=== PATIENT | male | born 1960 | race African-American/Black ===

== ENCOUNTER 2018-05-05 12:00 | Inpatient (IN) | payer OTHER ==
[2018-05-05 12:20] VITALS: BMI 27.3
--- NOTE | 2018-05-05 14:13 | HP ---
COWS - Scale Resting Pulse: 1= [place] 81-100 Sweatin= Chills/Flushing Restless Observation: 3= Extraneous Movement Pupil Size: 1= Pupils >than Normal Bone or Joint Aches: 2= Severe Diffuse Aches Runny Nose/ Eye Tearin= Runny Nose/Eyes GI Upset > 30mins: 2= Nausea/Diarrhea Tremor Observation: 2= Slight Tremor Visible Yawning Observation: 1= 1-2x During Session Anxiety or Irritability: 2=Irritable/Anxious Goose Flesh Skin: 0=Smooth Skin COWS Score: 17 CIWA Score - CIWA Score Nausea/Vomitin Muscle Tremors: 2 Anxiety: 2 Agitation: 2 Paroxysmal Sweats: 1-Minimal Palms Moist Orientation: 0-Oriented Tacttile Disturbances: 1-Very Mild Itch/Numbness Auditory Disturbances: 1-Very Mild Visual Disturbances: 1-Very Mild Sensitivity Headache: 2-Mild CIWA-Ar Total Score: 14 Admission ROS BHS - HPI Chief Complaint: i need help to stop using heroin,alcohol and cocaine Allergies/Adverse Reactions: Allergies Allergy/AdvReac Type Severity Reaction Status Date / Time No Known Drug Allergies Allergy Verified 05/05/18 14:08 History of Present Illness: this 57 years old male with heroin,alcohol,cocaine dependence seeking detox, withdrawal symptom,last detox [facility] 02/04/16 to 02/06/16 not completed history of hepatitis c no treatment black out weight loss manic depressive disorder multiple admissions in detox,last 02/04/16 to 02/06/16 not completed,keep relapsing - Ebola screening Have you traveled outside of the country in the last 21 days: No Have you had contact with anyone from an Ebola affected area: No Have you been sick,other than usual withdrawal symptoms: No Do you have a fever: No - Review of Systems Constitutional: Chills, Loss of Appetite, Malaise, Night Sweats, Changes in sleep, Weakness, Unintentional Wgt. Loss EENT: reports: Tearing, Nose Congestion Respiratory: reports: No Symptoms reported GI: reports: Diarrhea, Nausea, Vomiting, Abdominal cramping : reports: No Symptoms Reported Musculoskeletal: reports: Back Pain, Joint Pain, Muscle Pain, Joint Stiffness Integumentary: reports: Dryness Neuro: reports: No Symptoms reported, Headache, Tremors Endocrine: reports: No Symptoms Reported Hematology: reports: No Symptoms Reported Psychiatric: reports: No Sypmtoms Reported, Judgement Intact, Mood/Affect Appropiate, Orientated x3, Depressed (manic depressive disorder) Patient History - Patient Medical History Hx Anemia: No Hx Asthma: No Hx Chronic Obstructive Pulmonary Disease (COPD): No Hx Cancer: No Hx Cardiac Disorders: No Hx Congestive Heart Failure: No Hx Hypertension: No Hx Hypercholesterolemia: No Hx Pacemaker: No HX Cerebrovascular Accident: No Hx Seizures: No Hx Dementia: No Hx Diabetes: No Hx Gastrointestinal Disorders: No Hx Liver Disease: No Hx Genitourinary Disorders: No Hx Sexually Transmitted Disorders: No Hx Renal Disease (ESRD): No Hx Thyroid Disease: No Hx Human Immunodeficiency Virus (HIV): No (NEGATIVE HX last 2014) Hx Hepatitis C: Yes ("long time" no treatment) Hx Depression: Yes (no med) Hx Suicide Attempt: No Hx Bipolar Disorder: No Hx Schizophrenia: Yes (manic depressive disorder) - Patient Surgical History Past Surgical History: No Hx Neurologic Surgery: No Hx Cataract Extraction: No Hx Cardiac Surgery: No Hx Lung Surgery: No Hx Breast Surgery: No Hx Breast Biopsy: No Hx Abdominal Surgery: No Hx Appendectomy: No Hx Cholecystectomy: No Hx Genitourinary Surgery: No Hx Section: No Hx Orthopedic Surgery: No Anesthesia Reaction: No - PPD History Previous Implant?: Yes Documented Results: Negative w/o proof Implanted On Prior R Admission?: Yes Date: 05/05/15 Results: 0 mm PPD to be Administered?: Yes - Smoking Cessation Smoking history: Current every day smoker Have you smoked in the past 12 months: Yes Aproximately how many cigarettes per day: 5 Hx Chewing Tobacco Use: No Initiated information on smoking cessation: Yes 'Breaking Loose' booklet given: 05/05/18 - Substance & Tx. History Hx Alcohol Use: Yes Hx Substance Use: Yes Substance Use Type: Alcohol, Cocaine, Heroin Hx Substance Use Treatment: Yes (02/04/16 to 02/06/16 not completed) - Substances Abused Alcohol Route: Oral Frequency: Daily Amount used: 2 40 oz beers/ 2 qt s Age of first use: 11 Date of Last Use: 05/04/18 Heroin Route: Inhalation Frequency: Daily Amount used: 4 bags Age of first use: 21 Date of Last Use: 05/04/18 Cocaine Route: Smoking Frequency: Daily Amount used: $100-150 Age of first use: 21 Date of Last Use: 05/04/18 Family Disease History - Family Disease History Family Disease History: Diabetes: Mother (), Other: Mother Admission Physical Exam [facility] - Vital Signs Vital Signs: Vital Signs - 24 hr 05/05/18 12:11 Temperature 96.4 F L Pulse Rate 85 Respiratory 20 Rate Blood Pressure 150/94 - Physical General Appearance: Yes: Moderate Distress, Tremorous, Irritable, Sweating, Anxious HEENTM: Yes: Normal ENT Inspection, CHERELLE, Pharynx Normal Respiratory: Yes: Lungs Clear, Normal Breath Sounds, No Respiratory Distress Neck: Yes: Within Normal Limits Breast: Yes: Within Normal Limits Cardiology: Yes: Within Normal Limits, Regular Rhythm, Regular Rate, S1, S2 Abdominal: Yes: Within Normal Limits, Normal Bowel Sounds, Non Tender, Soft Genitourinary: Yes: Within Normal Limits Back: Yes: Muscle Spasm Musculoskeletal: Yes: full range of Motion, Back pain, Joint Stiffness, Muscle Pain Extremities: Yes: Tremors Neurological: Yes: Within Normal Limits, saddle cutter II-XII NML intact, Fully Oriented, Alert, Motor Strength 5/5 Integumentary: Yes: Dry Lymphatic: Yes: Within Normal Limits - Diagnostic (1) Opioid dependence with withdrawal Current Visit: No Status: Acute (2) Alcohol dependence with uncomplicated withdrawal Current Visit: No Status: Acute (3) Cocaine dependence Current Visit: No Status: Acute (4) Nicotine dependence Current Visit: No Status: Acute Qualifiers: Nicotine product type: cigarettes Substance use status: uncomplicated Qualified Code(s): F17.210 - Nicotine dependence, cigarettes, uncomplicated (5) Hepatitis C Current Visit: No Status: Chronic Qualifiers: Viral hepatitis chronicity: chronic Hepatic coma status: without hepatic coma Qualified Code(s): B18.2 - Chronic viral hepatitis C Cleared for Admission [facility] - Detox or Rehab [facility] Level of Care: Medically Managed Detox Regimen/Protocol: Methadone/Librium S Breath Alcohol Content Breath Alcohol Content: 0 Urine Drug Screen - Results Drug Screen Negative: No Urine Drug Screen Results: LANEY-Cocaine, OPI-Opiates
[2018-05-05] MEDS ORDERED: MAGNESIUM HYDROX 2400MG/30ML ORAL SUSPENSION 30 ML CUP PO PRN (14:41)
[2018-05-05] MEDS ORDERED: LOPERAMIDE HCL 2 MG CAPSULE PO PRN (14:41)
[2018-05-05] MEDS ORDERED: MAGNESIUM CITRATE 300 ML BOTTLE PO PRN (14:41)
[2018-05-05] MEDS ORDERED: guaiFENesin/D-METHORPHAN HB 10 ML UNIT-DOSE CUPS PO PRN (14:41)
[2018-05-05] MEDS ORDERED: P-EPHED 60MG/TRIPROLIDI 2.5MG TABLET PO PRN (14:41)
[2018-05-05] MEDS ORDERED: IBUPROFEN 400 MG TABLET (FP) PO PRN (14:41)
[2018-05-05] MEDS ORDERED: hydrOXYzine PAMOATE 50 MG CAPSULE (FP) PO PRN (14:41)
[2018-05-05] MEDS ORDERED: ACETAMINOPHEN 325 MG TABLET (FP) PO PRN (14:41)
[2018-05-05] MEDS ORDERED: MENTHOL/PHENOL 1 EACH UD MM PRN (14:41)
[2018-05-05] MEDS ORDERED: chlordiazePOXIDE HCL 25 MG CAPSULE PO PRN (14:41)
[2018-05-05] MEDS ORDERED: MAG HYDROX/AL HYDROX/SIMETH 30 ML UNIT-DOSE CUP PO PRN (14:41)
[2018-05-05] MEDS ORDERED: METHADONE HCL 10 MG TABLET (FOR DETOX USE ONLY) PO ONE ×2 (14:50→23:00)
[2018-05-05] MEDS ORDERED: cloNIDine HCL 0.1 MG TABLET PO ONE (16:45)
[2018-05-05 17:20] LABS: URINE APPEARANCE CLEAR; URINE BILIRUBIN NEGATIVE (<2.0 mg/dL); URINE COLOR LTYELLOW; URINE GLUCOSE (UA) NEGATIVE (NEGATIVE); URINE KETONE NEGATIVE (NEGATIVE); URINE LEUK ESTERASE NEGATIVE (NEGATIVE); URINE NITRITE NEGATIVE (NEGATIVE); URINE PROTEIN NEGATIVE (NEGATIVE); URINE UROBILINOGEN NEGATIVE mg/dL (0.2-1.0)
[2018-05-05] MEDS: chlordiazePOXIDE HCL 25 MG CAPSULE PO SCH ×2 (17:20→22:11)
[2018-05-05] MEDS ORDERED: MELATONIN 5 MG TABLETS PO PRN (22:00)
[2018-05-05] MEDS: THIAMINE HCL 100 MG TABLET (FP) PO SCH (22:11)
[2018-05-06] MEDS: chlordiazePOXIDE HCL 25 MG CAPSULE PO SCH ×4 (05:26→22:20)
--- NOTE | 2018-05-06 07:40 | CONSULT ---
[facility] Psychiatric Consult - Data Date of interview: 05/06/18 Admission source: [facility] Identifying data: This is a 57 years old male, , father of two, homeless , unemployed, on PA, with no psychiatric hospitalization history, history of MDD , BD, with heroin,alcohol,cocaine and Nicotinedependence, PCP abuse, is reporting withdrawal synptoms and seeking detox. The last detox at [facility] on 02/03 to 02/06/16 was not completed. Substance Abuse History: Smoking history: Current every day smoker. Have you smoked in the past 12 months: Yes. Aproximately how many cigarettes per day: 5. Hx Chewing Tobacco Use: No. Initiated information on smoking cessation: Yes. 'Breaking Loose' booklet given: 05/05/18. - Substance & Tx. History. Hx Alcohol Use: Yes. Hx Substance Use: Yes. Substance Use Type: Alcohol, Cocaine , Heroin. Hx Substance Use Treatment: Yes (02/04/16 to 02/06/16 not completed) . - Substances Abused. Alcohol. Route: Oral. Frequency: Daily. Amount used: 2 40 oz beers/ 2 qt s. Age of first use: 11. Date of Last Use: . Heroin. Route: Inhalation. Frequency: Daily. Amount used: 4 bags. Age of first use: 21. Date of Last Use: 05/04/18. Cocaine. Route: Smoking. Frequency: Daily. Amount used: $100-150. Age of first use: 21. Date of Last Use: 05/04/18 Medical History: Hep C,A,B, Weight loss history Psychiatric History: Patient has a history of MDD and Bipolar II Disorder, reports no psychiatric hospitalization history, denies suicidal, emmanuelle,icidal history reports taking prior to admission: Lexapro 10mg poqd. Vistaril 50mg po q4 prn for anxiety and agitation Physical/Sexual Abuse/Trauma History: Denies Additional Comment: Lexapro 10mg poqd. Vistaril 50mg po q4 prn for anxiety and agitation Mental Status Exam - Mental Status Exam Alert and Oriented to: Person Cognitive Function: Fair Patient Appearance: Unkempt Mood: Sad Affect: Flat Patient Behavior: Sedated Speech Pattern: Delayed Voice Loudness: Mildly Soft/Quiet Thought Process: Circumstantial, Goal Oriented Thought Disorder: Being Controlled Hallucinations: Denies Suicidal Ideation: Denies Homicidal Ideation: Denies Insight/Judgement: Fair Sleep: Difficulty falling asleep Appetite: Weight loss Muscle strength/Tone: Mild Hypotonicity Gait/Station: Shuffling Additional Comments: Lexapro 10mg poqd. Vistaril 50mg po q4 prn for anxiety and agitation Psychiatric Findings - Problem List ([place] 1, 2,3) (1) Alcohol dependence with uncomplicated withdrawal Current Visit: No Status: Acute (2) Cannabis dependence Current Visit: No Status: Acute (3) Cocaine dependence Current Visit: No Status: Acute (4) Nicotine dependence Current Visit: No Status: Acute Qualifiers: Nicotine product type: cigarettes Substance use status: uncomplicated Qualified Code(s): F17.210 - Nicotine dependence, cigarettes, uncomplicated (5) Opioid dependence Current Visit: No Status: Acute (6) Opioid dependence with withdrawal Current Visit: No Status: Acute (7) Substance induced mood disorder Current Visit: No Status: Acute (8) Depression (emotion) Current Visit: No Status: Chronic Qualifiers: Depression Type: dysthymia Qualified Code(s): F34.1 - Dysthymic disorder (9) Hepatitis C Current Visit: No Status: Chronic Qualifiers: Viral hepatitis chronicity: chronic Hepatic coma status: without hepatic coma Qualified Code(s): B18.2 - Chronic viral hepatitis C (10) PCP abuse Current Visit: No Status: Chronic - Initial Treatment Plan Initial Treatment Plan: Lexapro 10mg poqd. Vistaril 50mg po q4 prn for anxiety and agitation
[2018-05-06] MEDS ORDERED: hydrOXYzine HCL 25 MG TABLET (FP) PO PRN (08:29)
[2018-05-06] MEDS ORDERED: METHADONE HCL 10 MG TABLET (FOR DETOX USE ONLY) PO SCH (10:00)
[2018-05-06 10:11] LABS: HEMATOCRIT 25.1 % (35.4-49); HEMOGLOBIN 8.4 GM/dL (11.7-16.9); MCH 30.9 pg (25.7-33.7); MCHC 33.6 g/dl (32.0-35.9); PLATELET COUNT 303 K/MM3 (134-434); RBC 2.73 M/mm3 (4.00-5.60); WHITE BLOOD COUNT 7.3 K/mm3 (4.0-10.0)
[2018-05-06 10:23] LABS: ALK PHOS 141 U/L (45-117); ANION GAP 6 MMOL/L (8-16); BILIRUBIN,TOTAL 0.7 mg/dL (0.2-1); BLOOD UREA NITROGEN 12 mg/dL (7-18); CALCIUM 8.4 mg/dL (8.5-10.1); CHLORIDE 108 mmol/L (98-107); CO2 28 mmol/L (21-32); CREATININE 0.8 mg/dL (0.55-1.3); GLUCOSE,RANDOM 76 mg/dL (74-106); POTASSIUM 4.6 mmol/L (3.5-5.1); SGOT/AST 91 U/L (15-37); SGPT/ALT 210 U/L (13-61); SODIUM 143 mmol/L (136-145); TOT PROT 6.3 g/dl (6.4-8.2)
[2018-05-06] MEDS: PRENATAL VITAMINS W/ FOLIC ACID TABLET (FP) PO SCH (10:51)
[2018-05-06] MEDS: ESCITALOPRAM OXALATE 10 MG TABLET (FP) PO SCH (10:51)
--- NOTE | 2018-05-06 11:13 | PN ---
[facility] CIWA - CIWA Score Nausea/Vomitin-No Nausea/No Vomiting Muscle Tremors: 4-Moderate,w/Arms Extend Anxiety: 3 Agitation: 3 Paroxysmal Sweats: 3 Orientation: 0-Oriented Tacttile Disturbances: 0-None Auditory Disturbances: 0-None Visual Disturbances: 0-None Headache: 0-None Present CIWA-Ar Total Score: 13 BHS COWS - Scale Resting Pulse: 1= [place] 81-100 Sweatin=Flushed/Facial Moisture Restless Observation: 0= Sits Still Pupil Size: 0= Normal to Room Light Bone or Joint Aches: 2= Severe Diffuse Aches Runny Nose/ Eye Tearin= Nasal Congestion GI Upset > 30mins: 1= Stomach Cramp Tremor Observation of Outstretched Hands: 2= Slight Tremor Visible Yawning Observation: 2= >3x During Session Anxiety or Irritability: 2=Irritable/Anxious Goose Flesh Skin: 0=Smooth Skin COWS Score: 13 S Progress Note (SOAP) Subjective: tired sweats shakes interrupted sleep irritable agitation Objective: 05/06/18 11:11 Vital Signs Temperature 98.1 F 05/06/18 10:00 Pulse Rate 94 H 05/06/18 10:00 Respiratory Rate 16 05/06/18 10:00 Blood Pressure 102/75 05/06/18 10:00 O2 Sat by Pulse Oximetry (%) Laboratory Tests 05/05/18 05/06/18 05/06/18 15:34 06:00 06:00 WBC 7.3 RBC 2.73 L Hgb 8.4 L Hct 25.1 L D MCV 92.0 MCH 30.9 MCHC 33.6 RDW 14.0 Plt Count 303 MPV 8.0 Sodium 143 Potassium 4.6 Chloride 108 H Carbon Dioxide 28 Anion Gap 6 L BUN 12 Creatinine 0.8 Creat Clearance w eGFR > 60 Random Glucose 76 Calcium 8.4 L Total Bilirubin 0.7 AST 91 H ALT 210 H Alkaline Phosphatase 141 H Total Protein 6.3 L Albumin 3.0 L Urine Color Ltyellow Urine Appearance Clear Urine pH 6.0 Ur Specific [place] 1.009 L Urine Protein Negative Urine Glucose (UA) Negative Urine Ketones Negative Urine Blood Negative Urine Nitrite Negative Urine Bilirubin Negative Urine Urobilinogen Negative Ur Leukocyte Esterase Negative elevated ast/alt; d/c tylenol repeat liver enzymes aaox3 lying in bed no acute distress Assessment: 05/06/18 11:12 withdrawal sx Plan: continue detox increase fluids f/u pending labs
--- NOTE | 2018-05-06 12:14 | EKG ---
Test Reason : Blood Pressure : / mmHG Vent. Rate : 086 BPM Atrial Rate : 086 BPM P-R Int : 162 ms QRS Dur : 080 ms QT Int : 358 ms P-R-T Axes : 037 052 057 degrees QTc Int : 428 ms NORMAL SINUS RHYTHM MINIMAL VOLTAGE CRITERIA FOR LVH, MAY BE NORMAL VARIANT BORDERLINE ECG NO PREVIOUS ECGS AVAILABLE Confirmed by DORA VAUGHN MD ([id number]) on 05/06/2018 12:13:48 PM Referred By: Confirmed By:DORA VAUGHN MD
[2018-05-06] MEDS: THIAMINE HCL 100 MG TABLET (FP) PO SCH (22:20)
[2018-05-07] MEDS: chlordiazePOXIDE HCL 25 MG CAPSULE PO SCH ×2 (05:32→10:18)
[2018-05-07] MEDS: PRENATAL VITAMINS W/ FOLIC ACID TABLET (FP) PO SCH (10:18)
[2018-05-07] MEDS: METHADONE HCL 5 MG TABLET (FOR DETOX USE ONLY) PO SCH (10:18)
[2018-05-07] MEDS: ESCITALOPRAM OXALATE 10 MG TABLET (FP) PO SCH (10:18)
[2018-05-07 10:48] LABS: SGOT/AST 44 U/L (15-37); SGPT/ALT 130 U/L (13-61)
--- NOTE | 2018-05-07 11:57 | PN ---
[facility] CIWA - CIWA Score Nausea/Vomitin-No Nausea/No Vomiting Muscle Tremors: 3 Anxiety: 3 Agitation: 3 Paroxysmal Sweats: 3 Orientation: 0-Oriented Tacttile Disturbances: 0-None Auditory Disturbances: 0-None Visual Disturbances: 0-None Headache: 0-None Present CIWA-Ar Total Score: 12 BHS COWS - Scale Resting Pulse: 1= [place] 81-100 Sweatin=Flushed/Facial Moisture Restless Observation: 1= Difficult to Sit Still Pupil Size: 0= Normal to Room Light Bone or Joint Aches: 2= Severe Diffuse Aches Runny Nose/ Eye Tearin= Nasal Congestion GI Upset > 30mins: 0= None Tremor Observation of Outstretched Hands: 1= Tremor [place], Not Seen Yawning Observation: 2= >3x During Session Anxiety or Irritability: 2=Irritable/Anxious Goose Flesh Skin: 0=Smooth Skin COWS Score: 12 S Progress Note (SOAP) Subjective: sweats shakes interrupted sleep agitation Objective: 05/07/18 11:57 Vital Signs Temperature 97.7 F 05/07/18 10:00 Pulse Rate 96 H 05/07/18 10:00 Respiratory Rate 18 05/07/18 10:00 Blood Pressure 122/73 05/07/18 10:00 O2 Sat by Pulse Oximetry (%) Laboratory Tests 05/05/18 05/06/18 05/06/18 15:34 06:00 06:00 WBC 7.3 RBC 2.73 L Hgb 8.4 L Hct 25.1 L D MCV 92.0 MCH 30.9 MCHC 33.6 RDW 14.0 Plt Count 303 MPV 8.0 Sodium 143 Potassium 4.6 Chloride 108 H Carbon Dioxide 28 Anion Gap 6 L BUN 12 Creatinine 0.8 Creat Clearance w eGFR > 60 Random Glucose 76 Calcium 8.4 L Total Bilirubin 0.7 AST 91 H ALT 210 H Alkaline Phosphatase 141 H Total Protein 6.3 L Albumin 3.0 L Urine Color Ltyellow Urine Appearance Clear Urine pH 6.0 Ur Specific [place] 1.009 L Urine Protein Negative Urine Glucose (UA) Negative Urine Ketones Negative Urine Blood Negative Urine Nitrite Negative Urine Bilirubin Negative Urine Urobilinogen Negative Ur Leukocyte Esterase Negative RPR Titer 05/06/18 05/07/18 06:00 07:00 WBC RBC Hgb Hct MCV MCH MCHC RDW Plt Count MPV Sodium Potassium Chloride Carbon Dioxide Anion Gap BUN Creatinine Creat Clearance w eGFR Random Glucose Calcium Total Bilirubin AST 44 H ALT 130 H Alkaline Phosphatase Total Protein Albumin Urine Color Urine Appearance Urine pH Ur Specific [place] Urine Protein Urine Glucose (UA) Urine Ketones Urine Blood Urine Nitrite Urine Bilirubin Urine Urobilinogen Ur Leukocyte Esterase RPR Titer Nonreactive liver enzymes improving aaox3 ambulating no acute distress Assessment: 05/07/18 12:02 withdrawal sx Plan: continue detox increase fluids
[2018-05-07] MEDS: chlordiazePOXIDE 5 MG CAPSULE PO SCH ×2 (17:19→22:47)
[2018-05-07] MEDS: THIAMINE HCL 100 MG TABLET (FP) PO SCH (22:46)
[2018-05-07] MEDS ORDERED: IBUPROFEN 600 MG TABLET (FP) PO PRN (23:50)
[2018-05-08] MEDS: LIDOCAINE PATCH REMOVAL MC SCH ×2 (00:31→22:44)
[2018-05-08] MEDS: chlordiazePOXIDE 5 MG CAPSULE PO SCH ×2 (05:25→10:15)
[2018-05-08] MEDS ORDERED: LIDOCAINE 5% TOPICAL PATCH TP PRN (10:00)
[2018-05-08] MEDS: ESCITALOPRAM OXALATE 10 MG TABLET (FP) PO SCH (10:14)
[2018-05-08] MEDS: PRENATAL VITAMINS W/ FOLIC ACID TABLET (FP) PO SCH (10:14)
[2018-05-08] MEDS: METHADONE HCL 5 MG TABLET (FOR DETOX USE ONLY) PO SCH (10:14)
--- NOTE | 2018-05-08 15:01 | PN ---
[facility] Progress Note Note: Vital Signs irritable, interrupted sleep, body aches Temperature 98.1 F 05/08/18 10:52 Pulse Rate 89 05/08/18 10:52 Respiratory Rate 16 05/08/18 10:52 Blood Pressure 133/84 05/08/18 10:52 O2 Sat by Pulse Oximetry (%) Laboratory Last Values WBC 7.3 K/mm3 (4.0-10.0) 05/06/18 06:00 RBC 2.73 M/mm3 (4.00-5.60) L 05/06/18 06:00 Hgb 8.4 GM/dL (11.7-16.9) L 05/06/18 06:00 Hct 25.1 % (35.4-49) L D 05/06/18 06:00 MCV 92.0 fl (80-96) 05/06/18 06:00 MCH 30.9 pg (25.7-33.7) 05/06/18 06:00 MCHC 33.6 g/dl (32.0-35.9) 05/06/18 06:00 RDW 14.0 % (11.9-15.9) 05/06/18 06:00 Plt Count 303 K/MM3 (134-434) 05/06/18 06:00 MPV 8.0 fl (7.5-11.1) 05/06/18 06:00 Sodium 143 mmol/L (136-145) 05/06/18 06:00 Potassium 4.6 mmol/L (3.5-5.1) 05/06/18 06:00 Chloride 108 mmol/L (98-107) H 05/06/18 06:00 Carbon Dioxide 28 mmol/L (21-32) 05/06/18 06:00 Anion Gap 6 MMOL/L (8-16) L 05/06/18 06:00 BUN 12 mg/dL (7-18) 05/06/18 06:00 Creatinine 0.8 mg/dL (0.55-1.3) 05/06/18 06:00 Creat Clearance w eGFR > 60 (>60) 05/06/18 06:00 Random Glucose 76 mg/dL (74-106) 05/06/18 06:00 Calcium 8.4 mg/dL (8.5-10.1) L 05/06/18 06:00 Total Bilirubin 0.7 mg/dL (0.2-1) 05/06/18 06:00 AST 44 U/L (15-37) H 05/07/18 07:00 ALT 130 U/L (13-61) H 05/07/18 07:00 Alkaline Phosphatase 141 U/L (45-117) H 05/06/18 06:00 Total Protein 6.3 g/dl (6.4-8.2) L 05/06/18 06:00 Albumin 3.0 g/dl (3.4-5.0) L 05/06/18 06:00 Urine Color Ltyellow 05/05/18 15:34 Urine Appearance Clear 05/05/18 15:34 Urine pH 6.0 (5.0-8.0) 05/05/18 15:34 Ur Specific [place] 1.009 (1.010-1.035) L 05/05/18 15:34 Urine Protein Negative (NEGATIVE) 05/05/18 15:34 Urine Glucose (UA) Negative (NEGATIVE) 05/05/18 15:34 Urine Ketones Negative (NEGATIVE) 05/05/18 15:34 Urine Blood Negative (NEGATIVE) 05/05/18 15:34 Urine Nitrite Negative (NEGATIVE) 05/05/18 15:34 Urine Bilirubin Negative (<2.0 mg/dL) 05/05/18 15:34 Urine Urobilinogen Negative mg/dL (0.2-1.0) 05/05/18 15:34 Ur Leukocyte Esterase Negative (NEGATIVE) 05/05/18 15:34 RPR Titer Nonreactive (NONREACTIVE) 05/06/18 06:00 Aox3 no distress , irritable full ROM no adventitious breath sound s withdrawal sx increase fluids continue detox continue to monitor
[2018-05-08] MEDS: chlordiazePOXIDE HCL 10 MG CAPSULE PO SCH ×2 (18:02→22:43)
[2018-05-08] MEDS: THIAMINE HCL 100 MG TABLET (FP) PO SCH (22:42)
[2018-05-09] MEDS: chlordiazePOXIDE HCL 10 MG CAPSULE PO SCH ×2 (05:57→10:11)
[2018-05-09] MEDS ORDERED: METHADONE HCL 10 MG TABLET (FOR DETOX USE ONLY) PO SCH (10:00)
[2018-05-09] MEDS: PRENATAL VITAMINS W/ FOLIC ACID TABLET (FP) PO SCH (10:11)
[2018-05-09] MEDS: ESCITALOPRAM OXALATE 10 MG TABLET (FP) PO SCH (10:11)
--- NOTE | 2018-05-09 16:07 | PN ---
[facility] Progress Note (SOAP) Subjective: feeling better no tremor no body aches no muscle cramp less sweat sleep better at night Objective: 05/09/18 16:04 Vital Signs Temperature 98.6 F 05/09/18 14:35 Pulse Rate 69 05/09/18 14:35 Respiratory Rate 16 05/09/18 14:35 Blood Pressure 149/79 05/09/18 14:35 O2 Sat by Pulse Oximetry (%) Laboratory Last Values WBC 7.3 K/mm3 (4.0-10.0) 05/06/18 06:00 RBC 2.73 M/mm3 (4.00-5.60) L 05/06/18 06:00 Hgb 8.4 GM/dL (11.7-16.9) L 05/06/18 06:00 Hct 25.1 % (35.4-49) L D 05/06/18 06:00 MCV 92.0 fl (80-96) 05/06/18 06:00 MCH 30.9 pg (25.7-33.7) 05/06/18 06:00 MCHC 33.6 g/dl (32.0-35.9) 05/06/18 06:00 RDW 14.0 % (11.9-15.9) 05/06/18 06:00 Plt Count 303 K/MM3 (134-434) 05/06/18 06:00 MPV 8.0 fl (7.5-11.1) 05/06/18 06:00 Sodium 143 mmol/L (136-145) 05/06/18 06:00 Potassium 4.6 mmol/L (3.5-5.1) 05/06/18 06:00 Chloride 108 mmol/L (98-107) H 05/06/18 06:00 Carbon Dioxide 28 mmol/L (21-32) 05/06/18 06:00 Anion Gap 6 MMOL/L (8-16) L 05/06/18 06:00 BUN 12 mg/dL (7-18) 05/06/18 06:00 Creatinine 0.8 mg/dL (0.55-1.3) 05/06/18 06:00 Creat Clearance w eGFR > 60 (>60) 05/06/18 06:00 Random Glucose 76 mg/dL (74-106) 05/06/18 06:00 Calcium 8.4 mg/dL (8.5-10.1) L 05/06/18 06:00 Total Bilirubin 0.7 mg/dL (0.2-1) 05/06/18 06:00 AST 44 U/L (15-37) H 05/07/18 07:00 ALT 130 U/L (13-61) H 05/07/18 07:00 Alkaline Phosphatase 141 U/L (45-117) H 05/06/18 06:00 Total Protein 6.3 g/dl (6.4-8.2) L 05/06/18 06:00 Albumin 3.0 g/dl (3.4-5.0) L 05/06/18 06:00 Urine Color Ltyellow 05/05/18 15:34 Urine Appearance Clear 05/05/18 15:34 Urine pH 6.0 (5.0-8.0) 05/05/18 15:34 Ur Specific [place] 1.009 (1.010-1.035) L 05/05/18 15:34 Urine Protein Negative (NEGATIVE) 05/05/18 15:34 Urine Glucose (UA) Negative (NEGATIVE) 05/05/18 15:34 Urine Ketones Negative (NEGATIVE) 05/05/18 15:34 Urine Blood Negative (NEGATIVE) 05/05/18 15:34 Urine Nitrite Negative (NEGATIVE) 05/05/18 15:34 Urine Bilirubin Negative (<2.0 mg/dL) 05/05/18 15:34 Urine Urobilinogen Negative mg/dL (0.2-1.0) 05/05/18 15:34 Ur Leukocyte Esterase Negative (NEGATIVE) 05/05/18 15:34 RPR Titer Nonreactive (NONREACTIVE) 05/06/18 06:00 lab noted Assessment: 05/09/18 16:05 mild withdrawal sx Plan: medically supervised detox
[2018-05-09] MEDS: THIAMINE HCL 100 MG TABLET (FP) PO SCH (22:28)
[2018-05-09] MEDS: LIDOCAINE PATCH REMOVAL MC SCH (22:29)
[2018-05-10] MEDS ORDERED: METHADONE HCL 5 MG TABLET (FOR DETOX USE ONLY) PO SCH (06:00)
--- NOTE | 2018-05-10 08:40 | DS ---
[facility] Detox Discharge Summary Admission Date: 05/05/18 Discharge Date: 05/10/18 - History Present History: Alcohol Dependence, Cannabis Dependence, Cocaine Dependence, Opioid Dependence - Physical Exam Results Vital Signs: Vital Signs Temperature 97.9 F 05/10/18 06:00 Pulse Rate 78 05/10/18 06:00 Respiratory Rate 18 05/10/18 06:00 Blood Pressure 117/71 05/10/18 06:00 O2 Sat by Pulse Oximetry (%) - Treatment Hospital Course: Detox Protocol Followed, Detoxed Safely, Responded well, Discharged Condition Good, Rehab Referral Accepted - Medication Discharge Medications: Ambulatory Orders Escitalopram Oxalate [Lexapro -] 10 mg PO DAILY #30 tablet 05/06/18 - Diagnosis (1) Alcohol dependence with uncomplicated withdrawal Current Visit: Yes Status: Chronic (2) Cannabis dependence Current Visit: Yes Status: Chronic (3) Opioid dependence with withdrawal Current Visit: Yes Status: Chronic (4) Bipolar II disorder Current Visit: No Status: Acute (5) Cocaine dependence Current Visit: Yes Status: Chronic (6) Hepatitis A Current Visit: No Status: Acute (7) Hepatitis B Current Visit: No Status: Acute (8) Nicotine dependence Current Visit: Yes Status: Chronic Qualifiers: Nicotine product type: cigarettes Substance use status: uncomplicated Qualified Code(s): F17.210 - Nicotine dependence, cigarettes, uncomplicated (9) Substance induced mood disorder Current Visit: No Status: Acute (10) Depression (emotion) Current Visit: No Status: Chronic Qualifiers: Depression Type: dysthymia Qualified Code(s): F34.1 - Dysthymic disorder (11) Hepatitis C Current Visit: No Status: Chronic Qualifiers: Viral hepatitis chronicity: chronic Hepatic coma status: without hepatic coma Qualified Code(s): B18.2 - Chronic viral hepatitis C - AMA Did Patient Leave Against Medical Advice: No (referred to davon wren)
[2018-05-10] MEDS: ESCITALOPRAM OXALATE 10 MG TABLET (FP) PO SCH (10:21)
[2018-05-10] MEDS: PRENATAL VITAMINS W/ FOLIC ACID TABLET (FP) PO SCH (10:21)
[2018-05-10 13:39] VITALS: BP 128/73; PULSE 79; TEMP 98.6
== END 2018-05-10 17:08 | disposition home or self-care (01) | DRG 772 ==
LOC: YASAS 12:00 → Y6N 14:26
PROC: HZ42ZZZ Group Counseling for Substance Abuse Treatment, Cognitive-Behavioral (ICD-10-PCS; principal; 2018-05-05)
DX: F11.23 Opioid dependence with withdrawal (principal); F10.230 Alcohol dependence with withdrawal, uncomplicated; F14.20 Cocaine dependence, uncomplicated; F12.20 Cannabis dependence, uncomplicated; F16.10 Hallucinogen abuse, uncomplicated; F17.210 Nicotine dependence, cigarettes, uncomplicated; F19.24 Other psychoactive substance dependence with psychoactive substance-induced mood disorder; F34.1 Dysthymic disorder; F31.81 Bipolar II disorder; B18.2 Chronic viral hepatitis C; R74.0 Nonspecific elevation of levels of transaminase and lactic acid dehydrogenase [LDH]; Z86.19 Personal history of other infectious and parasitic diseases
CPT/HCPCS: 36415; 80053; 81003; 84450; 84460; 85027; 86593; 93005; 93010; J0735

== ENCOUNTER 2018-10-17 16:09 | Inpatient (IN) | payer OTHER ==
[2018-10-17 17:18] VITALS: BMI 27.3
--- NOTE | 2018-10-17 20:50 | HP ---
COWS - Scale Resting Pulse: 2= [place] 101-120 Sweatin=Flushed/Facial Moisture Restless Observation: 0= Sits Still Pupil Size: 1= Pupils >than Normal Bone or Joint Aches: 2= Severe Diffuse Aches Runny Nose/ Eye Tearin= Runny Nose/Eyes GI Upset > 30mins: 3= Vomiting/Diarrhea (vomiting x 2, no nausea) Tremor Observation: 2= Slight Tremor Visible Yawning Observation: 1= 1-2x During Session Anxiety or Irritability: 4=Extreme Anxiety Goose Flesh Skin: 0=Smooth Skin COWS Score: 19 CIWA Score Nausea/Vomitin (vi=comiting x 2) Muscle Tremors: 4-Moderate,w/Arms Extend Anxiety: 3 Agitation: 3 Paroxysmal Sweats: 2 Orientation: 2-Disoriented Date<2 days Tacttile Disturbances: 0-None Auditory Disturbances: 0-None Visual Disturbances: 0-None Headache: 2-Mild CIWA-Ar Total Score: 18 - Admission Criteria [facility]ASAS Guidelines: Admission for Medically Managed Detox: Requires at least one of the followin. CIWA greater than 12 2. Seizures within the past 24 hours 3. Delirium tremens within the past 24 hours 4. Hallucinations within the past 24 hours 5. Acute intervention needed for co occurring medical disorder 6. Acute intervention needed for co occurring psychiatric disorder 7. Severe withdrawal that cannot be handled at a lower level of care (continued vomiting, continued diarrhea, abnormal vital signs) requiring intravenous medication and/or fluids 8. Admission ROS [facility] Chief Complaint: Heroin and alcohol withdrawal symptoms Allergies/Adverse Reactions: Allergies Allergy/AdvReac Type Severity Reaction Status Date / Time Penicillins AdvReac Verified 10/17/18 17:47 History of Present Illness: 57 years old male with a long history of alcohol and heroin dependence is seeking admission to detox. Patient reports multiple detox admissions, last at [place], [place]. He He has medical history of Hep. C, arthritis, Depression and anxiety.He denies suicide attempt and suicidal ideation at this time. Patient reports that he was on Risperdal and Lexapro and has not seen a psychiatrist and has been off medications for about 3 months. Psych referral initiated. - Ebola screening Have you traveled outside of the country in the last 21 days: No (N) Have you had contact with anyone from an Ebola affected area: No Have you been sick,other than usual withdrawal symptoms: No Do you have a fever: No - Review of Systems Constitutional: Chills, Loss of Appetite, Malaise, Night Sweats EENT: reports: Sinus Pressure Respiratory: reports: No Symptoms reported Cardiac: reports: No Symptoms Reported GI: reports: Nausea, Poor Appetite, Poor Fluid Intake, Vomiting, Abdominal cramping : reports: No Symptoms Reported Musculoskeletal: reports: No Symptoms Reported Integumentary: reports: Dryness, Flushing Neuro: reports: Tremors Endocrine: reports: No Symptoms Reported Hematology: reports: No Symptoms Reported Psychiatric: reports: Anxious, Depressed Other Systems: Reviewed and Negative Patient History - Patient Medical History Hx Anemia: No Hx Asthma: No Hx Chronic Obstructive Pulmonary Disease (COPD): No Hx Cancer: No Hx Cardiac Disorders: No Hx Congestive Heart Failure: No Hx Hypertension: No Hx Hypercholesterolemia: No Hx Pacemaker: No HX Cerebrovascular Accident: No Hx Seizures: No Hx Dementia: No Hx Diabetes: No Hx Gastrointestinal Disorders: No Hx Liver Disease: No Hx Genitourinary Disorders: No Hx Sexually Transmitted Disorders: No Hx Renal Disease (ESRD): No Hx Thyroid Disease: No Hx Human Immunodeficiency Virus (HIV): No (NEGATIVE 2017) Hx Hepatitis C: Yes (Not treated) Hx Depression: Yes (Not on medication ) Hx Suicide Attempt: No Hx Bipolar Disorder: No Hx Schizophrenia: Yes (manic depressive disorder) Other Medical History: Anxiety - Not on medication - Patient Surgical History Past Surgical History: Yes Other Surgical History: JAW FRACTURE REPAIR IN 1985 - PPD History Previous Implant?: Yes Documented Results: Negative w/proof Implanted On Prior [facility] Admission?: Yes Date: 05/07/18 Results: 0 mm PPD to be Administered?: No - Reproductive History Patient is a Female of Child Bearing Age (11 -55 yrs old): No (MALE) - Smoking Cessation Smoking history: Current every day smoker Have you smoked in the past 12 months: Yes Aproximately how many cigarettes per day: 5 Hx Chewing Tobacco Use: No Initiated information on smoking cessation: Yes 'Breaking Loose' booklet given: 10/17/18 - Substance & Tx. History Hx Alcohol Use: Yes Hx Substance Use: Yes Substance Use Type: Alcohol, Cocaine, Heroin - Substances Abused Heroin Route: SNIFF Frequency: Daily Amount used: 4 BAGS Age of first use: 24 Date of Last Use: 10/17/18 Cocaine Route: Smoking Frequency: Daily Amount used: 2 1/2 GRAM Age of first use: 25 Date of Last Use: 10/17/18 Alcohol Route: Oral Frequency: Daily Amount used: VODKA - 1 PINT, BEER -3 X 24 oz. Age of first use: 6 Date of Last Use: 10/17/18 Family Disease History - Family Disease History Family Disease History: Diabetes: Mother (), Other: Mother Admission Physical Exam [facility] - Vital Signs Vital Signs: Vital Signs - 24 hr 10/17/18 17:09 Temperature 97.7 F Pulse Rate 105 H Respiratory 18 Rate Blood Pressure 134/93 - Physical General Appearance: Yes: Moderate Distress, Tremorous, Sweating, Anxious HEENTM: Yes: Normal ENT Inspection, Normal Voice, CHERELLE, Nasal Congestion Respiratory: Yes: Lungs Clear, Normal Breath Sounds, No Respiratory Distress Neck: Yes: Supple Breast: Yes: Breast Exam Deferred Cardiology: Yes: Tachycardia Abdominal: Yes: Normal Bowel Sounds Genitourinary: Yes: Within Normal Limits Back: Yes: Normal Inspection Musculoskeletal: Yes: Within Normal Limits Extremities: Yes: Tremors Neurological: Yes: Normal Mood/Affect Integumentary: Yes: Warm Lymphatic: Yes: Within Normal Limits - Diagnostic (1) Anxiety Current Visit: Yes Status: Chronic (2) Alcohol dependence with uncomplicated withdrawal Current Visit: Yes Status: Chronic (3) Cocaine dependence Current Visit: No Status: Chronic (4) Depression (emotion) Current Visit: Yes Status: Chronic Qualifiers: Depression Type: dysthymia Qualified Code(s): F34.1 - Dysthymic disorder (5) Hepatitis C Current Visit: Yes Status: Chronic Qualifiers: Viral hepatitis chronicity: chronic Hepatic coma status: without hepatic coma Qualified Code(s): B18.2 - Chronic viral hepatitis C (6) Nicotine dependence Current Visit: No Status: Chronic Qualifiers: Nicotine product type: cigarettes Substance use status: uncomplicated Qualified Code(s): F17.210 - Nicotine dependence, cigarettes, uncomplicated (7) Opioid dependence with withdrawal Current Visit: Yes Status: Chronic Cleared for Admission [facility] - Detox or Rehab [facility] Level of Care: Medically Managed Detox Regimen/Protocol: Methadone/Librium S Breath Alcohol Content Breath Alcohol Content: 0 Urine Drug Screen - Results Drug Screen Negative: No Urine Drug Screen Results: LANEY-Cocaine, OPI-Opiates Inpatient Rehab Admission - Rehab Decision to Admit Inpatient rehab admission?: No
[2018-10-17] MEDS ORDERED: METHOCARBAMOL 500 MG TABLET PO PRN (20:58)
[2018-10-17] MEDS ORDERED: IBUPROFEN 400 MG TABLET (FP) PO PRN (20:58)
[2018-10-17] MEDS ORDERED: NICOTINE POLACRILEX 2 MG GUM BUC PRN (20:58)
[2018-10-17] MEDS ORDERED: hydrOXYzine PAMOATE 25 MG CAPSULE (FP) PO PRN (20:58)
[2018-10-17] MEDS ORDERED: MENTHOL/PHENOL 1 EACH UD MM PRN (20:58)
[2018-10-17] MEDS ORDERED: MAGNESIUM CITRATE 300 ML BOTTLE PO PRN (20:58)
[2018-10-17] MEDS ORDERED: MAGNESIUM HYDROX 2400MG/30ML ORAL SUSPENSION 30 ML CUP PO PRN (20:58)
[2018-10-17] MEDS ORDERED: BISMUTH SUBSALICYLATE 524 MG/30 ML UD PO PRN (20:58)
[2018-10-17] MEDS ORDERED: cloNIDine HCL 0.1 MG TABLET PO PRN (20:58)
[2018-10-17] MEDS ORDERED: chlordiazePOXIDE HCL 25 MG CAPSULE PO PRN (20:58)
[2018-10-17] MEDS ORDERED: ACETAMINOPHEN 325 MG TABLET (FP) PO PRN ×2 (20:58)
[2018-10-17] MEDS ORDERED: MAG HYDROX/AL HYDROX/SIMETH 30 ML UNIT-DOSE CUP PO PRN (20:58)
[2018-10-17] MEDS: chlordiazePOXIDE HCL 25 MG CAPSULE PO SCH (22:35)
[2018-10-17] MEDS: THIAMINE HCL 100 MG TABLET (FP) PO SCH (22:36)
[2018-10-17] MEDS: MELATONIN 5 MG TABLETS PO PRN (22:36)
[2018-10-17] MEDS ORDERED: METHADONE HCL 10 MG TABLET (FOR DETOX USE ONLY) PO ONE (23:00)
[2018-10-18] MEDS: chlordiazePOXIDE HCL 25 MG CAPSULE PO SCH ×4 (05:19→22:36)
[2018-10-18] MEDS ORDERED: METHADONE HCL 5 MG TABLET (FOR DETOX USE ONLY) PO ONE (10:00)
[2018-10-18] MEDS: NICOTINE 14 MG/24 HOURS TOPICAL PATCH TD SCH (10:09)
[2018-10-18] MEDS: PRENATAL VITAMINS W/ FOLIC ACID TABLET (FP) PO SCH (10:10)
[2018-10-18 10:23] LABS: HEMATOCRIT 37.5 % (35.4-49); HEMOGLOBIN 13.4 GM/dL (11.7-16.9); MCH 31.3 pg (25.7-33.7); MCHC 35.7 g/dl (32.0-35.9); MEAN CELL VOLUME 87.7 fl (80-96); MEAN PLT VOLUME 7.8 fl (7.5-11.1); PLATELET COUNT 273 K/MM3 (134-434); RBC 4.28 M/mm3 (4.00-5.60); RDW 16.2 % (11.9-15.9); WHITE BLOOD COUNT 8.8 K/mm3 (4.0-10.0)
--- NOTE | 2018-10-18 10:26 | EKG ---
Test Reason : Blood Pressure : / mmHG Vent. Rate : 086 BPM Atrial Rate : 086 BPM P-R Int : 164 ms QRS Dur : 080 ms QT Int : 346 ms P-R-T Axes : 046 057 060 degrees QTc Int : 414 ms NORMAL SINUS RHYTHM NORMAL ECG WHEN COMPARED WITH ECG OF 05-MAY-2018 15:10, NO SIGNIFICANT CHANGE WAS FOUND Confirmed by SAHLOM BHAGAT MD ([id number]) on 10/18/2018 10:26:26 AM Referred By: ADELA Confirmed By:SHALOM BHAGAT MD
[2018-10-18 10:36] LABS: ALBUMIN 3.6 g/dl (3.4-5.0); ALK PHOS 123 U/L (45-117); ANION GAP 9 MMOL/L (8-16); BILIRUBIN,TOTAL 0.8 mg/dL (0.2-1); BLOOD UREA NITROGEN 16 mg/dL (7-18); CALCIUM 8.2 mg/dL (8.5-10.1); CHLORIDE 104 mmol/L (98-107); CO2 23 mmol/L (21-32); GLUCOSE,RANDOM 102 mg/dL (74-106); POTASSIUM 4.3 mmol/L (3.5-5.1); SGOT/AST 60 U/L (15-37); SGPT/ALT 74 U/L (13-61); SODIUM 135 mmol/L (136-145); TOT PROT 7.4 g/dl (6.4-8.2)
--- NOTE | 2018-10-18 14:21 | CONSULT ---
[facility] Psychiatric Consult - Data Date of interview: 10/18/18 Admission source: [facility] Identifying data: This is one of multiple admissions to [facility] for this 57 y/ o AA male self-referred for detoxification (alcohol, cocaine, opioid). Patient is , no children, homeless, unemployed and supported on welfare. Substance Abuse History: Discussed in this session. Mr Musa conforms a long standing history of substance abuse as described in the current [facility] report : Smoking history: Current every day smoker. Have you smoked in the past 12 months: Yes. Aproximately how many cigarettes per day: 5. Hx Chewing Tobacco Use: No. Initiated information on smoking cessation: Yes. 'Breaking Loose' booklet given: 10/17/18. - Substance & Tx. History. Hx Alcohol Use: Yes. Hx Substance Use: Yes. Substance Use Type: Alcohol, Cocaine, Heroin. - Substances Abused. Heroin. Route: SNIFF. Frequency: Daily. Amount used: 4 BAGS. Age of first use: 24. Date of Last Use: 10/17/18. Cocaine. Route : Smoking. Frequency: Daily. Amount used: 2 1/2 GRAM. Age of first use: 25. Date of Last Use: 10/17/18. Alcohol. Route: Oral. Frequency: Daily. Amount used: VODKA - 1 PINT, BEER -3 X 24 oz. Age of first use: 6. Date of Last Use: 10/17/18 Medical History: Remarkable for hepatitis C. Noted report of allergy to penicillin. Psychiatric History: In this interview, the patient denies history of psychiatric hospitalizations and he admits to a distant history of [facility] follow-[facility]. Reportedly diagnosed with Anxiety Disorder + Bipolar Disorder. Mr Musa has no recollection of his past medications. States that he has NOT taken medications " for a while ". Has been lost to follow-up for months. Patient denies history of suicide attempts. Patient is an unreliable history as evidenced by his tendency to deliver different versions of his personal history to different clinicians. At a previous encounter with this loan underwriter (09/2015) the patient provided a different narrative as described in this note (extracted from the records) : "... endorses an account of six psychiatric hospitalizations since the onset of his emotional disturbances at age 16.Mr Perkins is known to [facility] (5 admisssions) and [facility] (one admission).He is vague about dates and time and past OPD care settings.He reports that most of his treatments " took place in [facility] " where he appears to having stayed over 17-20 years of his adult life. He remembers his medications as trazodone,seroquel and risperdal; " I have received several diagnoses: depression, anxiety, chemical imbalance ". Patient has a solid history of non-compliance with OPD care. He used to be a patient at [facility] ( stopped attending that program 3 years ago). He indicates that he has been lost to follow up for several months. Patient denies history of suicide attempts (which conflicts with past statements he made to clinicians that were indicative of suicide attempt via hanging) ". Physical/Sexual Abuse/Trauma History: Patient denies history of abuse. Lost his , three years ago, to complications of emphysema (self-report). Additional Comment: Urine Drug Screen Results: LANEY-Cocaine, OPI-Opiates. Noted. Mental Status Exam - Mental Status Exam Alert and Oriented to: Time, Place, Person Cognitive Function: Grossly Intact Patient Appearance: Well Groomed Mood: Nervous, Anxious Affect: Mood Congruent, Constricted Patient Behavior: Sedated (mildly sedated), Fatigued Speech Pattern: Delayed, Slurred Voice Loudness: Moderately Soft/Quiet Thought Process: Goal Oriented Thought Disorder: Not Present Hallucinations: Denies Suicidal Ideation: Denies Homicidal Ideation: Denies Insight/Judgement: Poor Sleep: Well Appetite: Fair Muscle strength/Tone: Normal Gait/Station: Normal Psychiatric Findings - Problem List ([place] 1, 2,3) (1) Alcohol dependence with uncomplicated withdrawal Current Visit: Yes Status: Acute (2) Opioid dependence with withdrawal Current Visit: Yes Status: Acute (3) Cocaine dependence Current Visit: Yes Status: Chronic (4) Nicotine dependence Current Visit: Yes Status: Chronic Qualifiers: Nicotine product type: cigarettes Substance use status: uncomplicated Qualified Code(s): F17.210 - Nicotine dependence, cigarettes, uncomplicated (5) Substance induced mood disorder Current Visit: Yes Status: Chronic (6) History of bipolar disorder Current Visit: Yes Status: Chronic Comment: Questionable history. No OPD care. (7) Non-compliance Current Visit: Yes Status: Acute - Initial Treatment Plan Initial Treatment Plan: Psychoeducation. Sleep hygiene. Detoxification. AA/NA meetings. Support. Relapse prevention : discussed with patient. Social work team will facilitate patient's transition to rehabilitative care at completion of detoxification (patient's request). Motivational enhancement for positive lifetime changes. Observation.
--- NOTE | 2018-10-18 14:31 | CONSULT ---
[facility] Psychiatric Consult - Data Date of interview: 10/18/18 Admission source: Self-referred Identifying data: Mr Musa is a 57 years old Black male, father of 4 children, unemployed on public assistance, homeless seeing detox treatment for alcohol, opioid and cocaine Substance Abuse History: Reports history of alcohol, heroin and crack cocaine use. Refer to addiction counselor's summary for further information
--- NOTE | 2018-10-18 19:40 | PN ---
S CIWA - CIWA Score Nausea/Vomitin Muscle Tremors: 2 Anxiety: 2 Agitation: 0-Normal Activity Paroxysmal Sweats: 3 Orientation: 2-Disoriented Date<2 days Tacttile Disturbances: 0-None Auditory Disturbances: 2-Mild Harshness/Frighten Visual Disturbances: 1-Very Mild Sensitivity Headache: 0-None Present CIWA-Ar Total Score: 15 [facility] COWS - Scale Resting Pulse: 1= [place] 81-100 Sweatin= Chills/Flushing Restless Observation: 0= Sits Still Pupil Size: 0= Normal to Room Light Bone or Joint Aches: 2= Severe Diffuse Aches Runny Nose/ Eye Tearin= None GI Upset > 30mins: 2= Nausea/Diarrhea Tremor Observation of Outstretched Hands: 2= Slight Tremor Visible Yawning Observation: 1= 1-2x During Session Anxiety or Irritability: 2=Irritable/Anxious Goose Flesh Skin: 0=Smooth Skin COWS Score: 11 [facility] Progress Note (SOAP) Subjective: Body Aches, Anxious, Nausea, Tremors. Objective: PATIENT A & O X 2 (UNCERTAIN ABOUT CURRENT DAY / DATE). PATIENT OBSERVED AMBULATING ON UNIT. IN NO ACUTE DISTRESS. Vital Signs Temperature 97.9 F 10/18/18 17:42 Pulse Rate 104 H 10/18/18 17:42 Respiratory Rate 18 10/18/18 17:42 Blood Pressure 150/92 10/18/18 17:42 O2 Sat by Pulse Oximetry (%) Laboratory Tests 10/18/18 10/18/18 10/18/18 07:00 07:00 07:00 WBC 8.8 RBC 4.28 Hgb 13.4 Hct 37.5 D MCV 87.7 MCH 31.3 MCHC 35.7 RDW 16.2 H Plt Count 273 MPV 7.8 Sodium 135 L Potassium 4.3 Chloride 104 Carbon Dioxide 23 Anion Gap 9 BUN 16 Creatinine 1.0 Creat Clearance w eGFR 77.02 Random Glucose 102 Calcium 8.2 L Total Bilirubin 0.8 AST 60 H ALT 74 H Alkaline Phosphatase 123 H Total Protein 7.4 Albumin 3.6 RPR Titer Nonreactive LABS NOTED. 10/18/18 19:42 Assessment: 10/18/18 19:43 WITHDRAWAL SYMPTOMS. HYPOCALCEMIA. Plan: CONTINUE DETOX. OSCAL, 250 MG PO BID FOR HYPOCALCEMIA.
[2018-10-18] MEDS: THIAMINE HCL 100 MG TABLET (FP) PO SCH (22:32)
[2018-10-18] MEDS: CALCIUM 250MG/VIT-D 125 UNITS 1 COMBO TABLET PO SCH (22:32)
[2018-10-19] MEDS: chlordiazePOXIDE HCL 25 MG CAPSULE PO SCH ×3 (05:49→17:20)
[2018-10-19] MEDS ORDERED: METHADONE HCL 10 MG TABLET (FOR DETOX USE ONLY) PO ONE (10:00)
[2018-10-19] MEDS: NICOTINE 14 MG/24 HOURS TOPICAL PATCH TD SCH (10:47)
[2018-10-19] MEDS: PRENATAL VITAMINS W/ FOLIC ACID TABLET (FP) PO SCH (10:47)
[2018-10-19] MEDS: CALCIUM 250MG/VIT-D 125 UNITS 1 COMBO TABLET PO SCH ×2 (10:47→22:51)
--- NOTE | 2018-10-19 11:03 | PN ---
[facility] CIWA - CIWA Score Nausea/Vomitin-No Nausea/No Vomiting Muscle Tremors: 3 Anxiety: 3 Agitation: 3 Paroxysmal Sweats: 3 Orientation: 0-Oriented Tacttile Disturbances: 0-None Auditory Disturbances: 0-None Visual Disturbances: 0-None Headache: 0-None Present CIWA-Ar Total Score: 12 S COWS - Scale Resting Pulse: 1= [place] 81-100 Sweatin= Chills/Flushing Restless Observation: 1= Difficult to Sit Still Pupil Size: 0= Normal to Room Light Bone or Joint Aches: 2= Severe Diffuse Aches Runny Nose/ Eye Tearin= Runny Nose/Eyes GI Upset > 30mins: 0= None Tremor Observation of Outstretched Hands: 1= Tremor [place], Not Seen Yawning Observation: 2= >3x During Session Anxiety or Irritability: 2=Irritable/Anxious Goose Flesh Skin: 0=Smooth Skin COWS Score: 12 [facility] Progress Note (SOAP) Subjective: shakes sweats interrupted sleep body aches restless agitation Objective: 10/19/18 11:02 Vital Signs Temperature 98.2 F 10/19/18 09:28 Pulse Rate 85 10/19/18 09:28 Respiratory Rate 20 10/19/18 09:28 Blood Pressure 136/84 10/19/18 09:28 O2 Sat by Pulse Oximetry (%) labs pending aaox3 ambulating no acute distress Assessment: 10/19/18 11:03 withdrawal sx Plan: continue detox increase fluids labs pending
[2018-10-19] MEDS: chlordiazePOXIDE HCL 10 MG CAPSULE PO SCH (22:51)
[2018-10-19] MEDS: THIAMINE HCL 100 MG TABLET (FP) PO SCH (22:51)
[2018-10-19] MEDS ORDERED: chlordiazePOXIDE HCL 10 MG CAPSULE PO PRN (23:00)
[2018-10-20] MEDS: chlordiazePOXIDE HCL 10 MG CAPSULE PO SCH ×3 (05:38→17:10)
[2018-10-20] MEDS ORDERED: METHADONE HCL 5 MG TABLET (FOR DETOX USE ONLY) PO ONE ×2 (06:00→11:08)
--- NOTE | 2018-10-20 10:58 | PN ---
[facility] Progress Note (SOAP) Subjective: tired feeling better Objective: 10/20/18 10:58 Vital Signs Temperature 97.5 F L 10/20/18 09:53 Pulse Rate 85 10/20/18 09:53 Respiratory Rate 18 10/20/18 09:53 Blood Pressure 134/96 10/20/18 09:53 O2 Sat by Pulse Oximetry (%) aaox3 ambulating no acute distress Assessment: 10/20/18 10:58 mild withdrawal sx Plan: continue detox increase fluids d/c in am
[2018-10-20] MEDS: PRENATAL VITAMINS W/ FOLIC ACID TABLET (FP) PO SCH (11:01)
[2018-10-20] MEDS: CALCIUM 250MG/VIT-D 125 UNITS 1 COMBO TABLET PO SCH ×2 (11:01→22:35)
[2018-10-20] MEDS: NICOTINE 14 MG/24 HOURS TOPICAL PATCH TD SCH (11:02)
[2018-10-20] MEDS: THIAMINE HCL 100 MG TABLET (FP) PO SCH (22:34)
[2018-10-20] MEDS: MELATONIN 5 MG TABLETS PO PRN (22:35)
[2018-10-20] MEDS ORDERED: chlordiazePOXIDE HCL 10 MG CAPSULE PO SCH (23:00)
--- NOTE | 2018-10-21 08:32 | DS ---
[facility] Detox Discharge Summary Admission Date: 10/17/18 Discharge Date: 10/21/18 - History Present History: Alcohol Dependence, Cannabis Dependence, Cocaine Dependence, Opioid Dependence - Physical Exam Results Vital Signs: Vital Signs Temperature 97.7 F 10/21/18 07:04 Pulse Rate 79 10/21/18 07:04 Respiratory Rate 18 10/21/18 07:04 Blood Pressure 124/72 10/21/18 07:04 O2 Sat by Pulse Oximetry (%) - Treatment Hospital Course: Detox Protocol Followed, Detoxed Safely, Responded well, Discharged Condition Good, Rehab Referral Accepted - Medication Discharge Medications: Ambulatory Orders Escitalopram Oxalate [Lexapro -] 10 mg PO DAILY #30 tablet 05/06/18 Risperidone [Risperdal] 1 mg PO DAILY 10/17/18 - Diagnosis (1) Alcohol dependence with uncomplicated withdrawal Current Visit: Yes Status: Chronic (2) Hypocalcemia Current Visit: Yes Status: Chronic (3) Non-compliance Current Visit: Yes Status: Acute (4) Opioid dependence with withdrawal Current Visit: Yes Status: Chronic (5) Anxiety Current Visit: Yes Status: Chronic (6) Cocaine dependence Current Visit: Yes Status: Chronic (7) Depression (emotion) Current Visit: Yes Status: Chronic Qualifiers: Depression Type: dysthymia Qualified Code(s): F34.1 - Dysthymic disorder (8) Hepatitis C Current Visit: Yes Status: Chronic Qualifiers: Viral hepatitis chronicity: chronic Hepatic coma status: without hepatic coma Qualified Code(s): B18.2 - Chronic viral hepatitis C (9) History of bipolar disorder Current Visit: Yes Status: Chronic (10) Nicotine dependence Current Visit: Yes Status: Chronic Qualifiers: Nicotine product type: cigarettes Substance use status: uncomplicated Qualified Code(s): F17.210 - Nicotine dependence, cigarettes, uncomplicated (11) Substance induced mood disorder Current Visit: Yes Status: Chronic (12) Bipolar II disorder Current Visit: No Status: Acute (13) Hepatitis A Current Visit: No Status: Acute (14) Hepatitis B Current Visit: No Status: Acute (15) Cannabis dependence Current Visit: No Status: Chronic - AMA Did Patient Leave Against Medical Advice: No [facility]
[2018-10-21] MEDS ORDERED: chlordiazePOXIDE HCL 10 MG CAPSULE PO ONE (09:00)
[2018-10-21 09:33] VITALS: BP 126/84; PULSE 84; TEMP 98.1
[2018-10-21] MEDS: NICOTINE 14 MG/24 HOURS TOPICAL PATCH TD SCH (10:27)
[2018-10-21] MEDS: PRENATAL VITAMINS W/ FOLIC ACID TABLET (FP) PO SCH (10:27)
[2018-10-21] MEDS: CALCIUM 250MG/VIT-D 125 UNITS 1 COMBO TABLET PO SCH (10:27)
== END 2018-10-21 11:08 | disposition home or self-care (01) | DRG 773 ==
LOC: YASAS 16:09 → Y6N 21:31
PROVIDERS: ADMIT Surgery; ATTEND Surgery
PROC: HZ2ZZZZ Detoxification Services for Substance Abuse Treatment (ICD-10-PCS; principal; 2018-10-17)
DX: F11.23 Opioid dependence with withdrawal (principal); F10.230 Alcohol dependence with withdrawal, uncomplicated; F14.20 Cocaine dependence, uncomplicated; F12.20 Cannabis dependence, uncomplicated; F17.210 Nicotine dependence, cigarettes, uncomplicated; F41.9 Anxiety disorder, unspecified; F34.1 Dysthymic disorder; F19.24 Other psychoactive substance dependence with psychoactive substance-induced mood disorder; F31.81 Bipolar II disorder; E83.51 Hypocalcemia; B18.2 Chronic viral hepatitis C; Z86.19 Personal history of other infectious and parasitic diseases; Z91.19 Patient's noncompliance with other medical treatment and regimen; Z88.0 Allergy status to penicillin
CPT/HCPCS: 36415; 80053; 85027; 86593; 93005; 93010

== ENCOUNTER 2019-07-18 14:37 | Inpatient (IN) | payer OTHER ==
[2019-07-18 16:54] VITALS: BMI 33.4
--- NOTE | 2019-07-18 18:07 | HP ---
COWS - Scale Resting Pulse: 1= [place] 81-100 Sweatin= No chills or Flushing Restless Observation: 1= Difficult to Sit Still Pupil Size: 1= Pupils >than Normal Bone or Joint Aches: 1= Mild Discomfort Runny Nose/ Eye Tearin= Runny Nose/Eyes GI Upset > 30mins: 0= None Tremor Observation: 2= Slight Tremor Visible Yawning Observation: 0= None Anxiety or Irritability: 2=Irritable/Anxious Goose Flesh Skin: 0=Smooth Skin COWS Score: 10 CIWA Score Nausea/Vomitin-No Nausea/No Vomiting Muscle Tremors: 2 Anxiety: 4-Mod. Anxious/Guarded Agitation: 1-Slight > Activity Paroxysmal Sweats: No Perspiration Orientation: 0-Oriented Tacttile Disturbances: 0-None Auditory Disturbances: 0-None Visual Disturbances: 0-None Headache: 2-Mild CIWA-Ar Total Score: 9 - Admission Criteria OASAS Guidelines: Admission for Medically Managed Detox: Requires at least one of the followin. CIWA greater than 12 2. Seizures within the past 24 hours 3. Delirium tremens within the past 24 hours 4. Hallucinations within the past 24 hours 5. Acute intervention needed for co occurring medical disorder 6. Acute intervention needed for co occurring psychiatric disorder 7. Severe withdrawal that cannot be handled at a lower level of care (continued vomiting, continued diarrhea, abnormal vital signs) requiring intravenous medication and/or fluids 8. Admitting History and Physical - Admission History of Present Illness: 58 yo m w/ PMH Hep C (untreated), anxiety, depression and polysubstance abuse who comes into [facility] for assistance with detoxification from alcohol and heroin. Patient endorses sniffing 2-3 bags per day since he was 21 years old. His last use was last night. Patient states that he overdosed 3 times last year after they started to add Fentanyl to the heroin he was getting. Patient denies ever being given a Narcan kit. Patient endorses drinking 1-2 pints of vodka as well as two 40 oz beers per day every day. He began drinking when he was 12 years old. His last drink was yesterday. Patient endorses blacking out in the past, but denies ever having seizures or DTs while withdrawing. Patient endorses chest pain, neck pain, body aches shaking, anxiety and headache. Patient endorses taking Risperdal and Lexapro for his anxiety and depression, but he has not taken them recently because he was doing drugs. CLAIRE 0.0 on arrival Utox + opiates COWS 10 CIWA 9 History Source: Patient Limitations to Obtaining History: No Limitations - Past Medical History Hepatobiliary: Yes: Hepatitis C Psych: Yes: Addictions, Anxiety, Depression - Past Surgical History Past Surgical History: Yes: None - Smoking History Smoking history: Current every day smoker Have you smoked in the past 12 months: Yes Aproximately how many cigarettes per day: 5 - Alcohol/Substance Use Hx Alcohol Use: Yes - Social History Usual Living Arrangement: Yes: Other (homeless) Admission ROS S - HPI Allergies/Adverse Reactions: Allergies Allergy/AdvReac Type Severity Reaction Status Date / Time Penicillins AdvReac Verified 07/18/19 16:45 - Ebola screening Have you traveled outside of the country in the last 21 days: No (N) Have you had contact with anyone from an Ebola affected area: No Do you have a fever: No Patient History - Patient Medical History Hx Anemia: No Hx Asthma: No Hx Chronic Obstructive Pulmonary Disease (COPD): No Hx Cancer: No Hx Cardiac Disorders: No Hx Congestive Heart Failure: No Hx Hypertension: No Hx Hypercholesterolemia: No Hx Pacemaker: No HX Cerebrovascular Accident: No Hx Seizures: No Hx Dementia: No Hx Diabetes: No Hx Gastrointestinal Disorders: No Hx Liver Disease: No Hx Genitourinary Disorders: No Hx Sexually Transmitted Disorders: No Hx Renal Disease (ESRD): No Hx Thyroid Disease: No Hx Human Immunodeficiency Virus (HIV): No (NEGATIVE 2017) Hx Hepatitis C: Yes (Not treated) Hx Depression: Yes (Not on medication ) Hx Suicide Attempt: No Hx Bipolar Disorder: No Hx Schizophrenia: Yes (manic depressive disorder) - Patient Surgical History Past Surgical History: Yes Hx Neurologic Surgery: No Hx Cataract Extraction: No Hx Cardiac Surgery: No Hx Lung Surgery: No Hx Breast Surgery: No Hx Breast Biopsy: No Hx Abdominal Surgery: No Hx Appendectomy: No Hx Cholecystectomy: No Hx Genitourinary Surgery: No Hx Section: No Hx Orthopedic Surgery: No Other Surgical History: JAW FRACTURE REPAIR IN 1985 Anesthesia Reaction: No - PPD History Previous Implant?: Yes Documented Results: Negative w/o proof Date: 05/07/18 Results: 0 mm - Smoking Cessation Smoking history: Current every day smoker Have you smoked in the past 12 months: Yes Aproximately how many cigarettes per day: 5 Hx Chewing Tobacco Use: No Initiated information on smoking cessation: Yes 'Breaking Loose' booklet given: 07/18/19 - Substances abused Alcohol Substance route: Oral Frequency: Daily Amount used: liquor- 1 PINT, BEER- 1 (40oz) Age of first use: 12 Date of last use: 07/17/19 Heroin Substance route: Inhalation Frequency: Daily Amount used: 3 bags Age of first use: 21 Date of last use: 07/17/19 Admission Physical Exam S - Vital Signs Vital Signs: Vital Signs - 24 hr 07/18/19 16:41 Temperature 99.3 F Pulse Rate 84 Respiratory 20 Rate Blood Pressure 108/67 - Physical General Appearance: Yes: Mild Distress HEENTM: Yes: EOMI, CHERELLE, Other (pupils dilated to 2mm) Respiratory: Yes: Lungs Clear, Normal Breath Sounds, No Respiratory Distress, No Accessory Muscle Use, Other (mild tenderness to palpation in the chest.) Neck: Yes: Trachea in good position Cardiology: Yes: Regular Rhythm, Regular Rate, S1, S2. No: JVD, Murmur, Gallop/ S3, Gallop/S4 Abdominal: Yes: Normal Bowel Sounds, Non Tender, Flat, Soft Neurological: Yes: data entry specialist II-XII NML intact, Fully Oriented, Alert, Motor Strength 5/5, Normal Response Integumentary: Yes: Normal Color, Dry - Diagnostic (1) Alcohol dependence with uncomplicated withdrawal Current Visit: No Status: Chronic (2) Depression (emotion) Current Visit: No Status: Chronic Qualifiers: Depression Type: dysthymia Qualified Code(s): F34.1 - Dysthymic disorder (3) Hepatitis C Current Visit: No Status: Chronic Qualifiers: Viral hepatitis chronicity: chronic Hepatic coma status: without hepatic coma Qualified Code(s): B18.2 - Chronic viral hepatitis C (4) Nicotine dependence Current Visit: No Status: Chronic Qualifiers: Nicotine product type: cigarettes Substance use status: uncomplicated Qualified Code(s): F17.210 - Nicotine dependence, cigarettes, uncomplicated (5) Opioid dependence with withdrawal Current Visit: No Status: Chronic Breathalyzer - Breathalyzer Breathalyzer: 0 Urine Drug Screen - Test Device Lot number: [id number] Expiration date: 02/23/21 - Control Is test valid?: Yes - Results Drug screen NEGATIVE: No Urine drug screen results: MOP-Opiates Inpatient Rehab Admission - Rehab Decision to Admit Inpatient rehab admission?: No
--- NOTE | 2019-07-18 18:37 | PN ---
Teaching Attending Note Name of Resident: Raymon Chiang ATTENDING PHYSICIAN STATEMENT I saw and evaluated the patient. I reviewed the resident's note and discussed the case with the resident. I agree with the resident's findings and plan as documented. SUBJECTIVE: 58 yo with AUD, OUD here for treatment. OBJECTIVE: Vital Signs - 24 hr 07/18/19 16:41 Temperature 99.3 F Pulse Rate 84 Respiratory 20 Rate Blood Pressure 108/67 agitated tremulous ASSESSMENT AND PLAN: OUD- methadone based detox AUD- librium based detox anxiety/depression- MH consult
[2019-07-18] MEDS ORDERED: BISMUTH SUBSALICYLATE 524 MG/30 ML UD PO PRN (18:52)
[2019-07-18] MEDS ORDERED: MENTHOL/PHENOL 1 EACH UD MM PRN (18:52)
[2019-07-18] MEDS ORDERED: METHOCARBAMOL 500 MG TABLET PO PRN (18:52)
[2019-07-18] MEDS ORDERED: MAGNESIUM HYDROX 2400MG/30ML ORAL SUSPENSION 30 ML CUP PO PRN (18:52)
[2019-07-18] MEDS ORDERED: LORazepam 1 MG TABLET PO PRN (18:52)
[2019-07-18] MEDS ORDERED: ACETAMINOPHEN 325 MG TABLET (FP) PO PRN ×2 (18:52)
[2019-07-18] MEDS ORDERED: hydrOXYzine PAMOATE 25 MG CAPSULE (FP) PO PRN (18:52)
[2019-07-18] MEDS ORDERED: MAG HYDROX/AL HYDROX/SIMETH 30 ML UNIT-DOSE CUP PO PRN (18:52)
[2019-07-18] MEDS ORDERED: cloNIDine HCL 0.1 MG TABLET PO PRN (18:52)
[2019-07-18] MEDS ORDERED: IBUPROFEN 400 MG TABLET (FP) PO PRN (18:52)
[2019-07-18] MEDS ORDERED: MAGNESIUM CITRATE 300 ML BOTTLE PO PRN (18:52)
[2019-07-18] MEDS ORDERED: METHADONE HCL 10 MG TABLET (FOR DETOX USE ONLY) PO ONE (19:15)
[2019-07-18] MEDS: LORazepam 2 MG TABLET PO SCH (22:08)
[2019-07-18] MEDS: MELATONIN 5 MG TABLETS PO PRN (22:08)
[2019-07-18] MEDS: THIAMINE HCL 100 MG TABLET (FP) PO SCH (22:08)
[2019-07-19] MEDS: LORazepam 2 MG TABLET PO SCH ×4 (05:47→23:24)
[2019-07-19] MEDS ORDERED: METHADONE HCL 10 MG TABLET (FOR DETOX USE ONLY) ONE (09:05)
[2019-07-19] MEDS ORDERED: METHADONE HCL 5 MG TABLET (FOR DETOX USE ONLY) ONE (09:05)
--- NOTE | 2019-07-19 09:36 | PN ---
[facility] CIWA - CIWA Score Nausea/Vomitin-Mild Nausea/No Vomiting Muscle Tremors: 2 Anxiety: 3 Agitation: 2 Paroxysmal Sweats: 2 Orientation: 1-Uncertain about Date Tacttile Disturbances: 0-None Auditory Disturbances: 0-None Visual Disturbances: 0-None Headache: 1-Very Mild CIWA-Ar Total Score: 12 BHS COWS - Scale Resting Pulse: 1= [place] 81-100 Sweatin= Chills/Flushing Restless Observation: 0= Sits Still Pupil Size: 1= Pupils >than Normal Bone or Joint Aches: 1= Mild Discomfort Runny Nose/ Eye Tearin= Nasal Congestion GI Upset > 30mins: 1= Stomach Cramp Tremor Observation of Outstretched Hands: 1= Tremor [place], Not Seen Yawning Observation: 0= None Anxiety or Irritability: 1=Feels Anxious/Irritable Goose Flesh Skin: 0=Smooth Skin COWS Score: 8 S Progress Note (SOAP) Subjective: 58 years old male admitted on 07/18/19 for alcohol and opiate withdrawal sx management treating with ativan and methadone detox regimens resting on bed feeling tired trouble to fall asleep at night prefers to stay in bed today Objective: 07/19/19 09:35 Vital Signs Temperature 97.0 F L 07/19/19 09:11 Pulse Rate 86 07/19/19 09:11 Respiratory Rate 18 07/19/19 09:11 Blood Pressure 128/85 07/19/19 09:11 O2 Sat by Pulse Oximetry (%) 07/19/19 09:35 lab pending Assessment: 07/19/19 09:35 alcohol and opiate withdrawal Plan: ativan and methadone regimens
[2019-07-19] MEDS ORDERED: METHADONE (DETOX) 20 MG, METHADONE (DETOX) 5 MG PO ONE (10:00)
--- NOTE | 2019-07-19 10:17 | EKG ---
Test Reason : Blood Pressure : / mmHG Vent. Rate : 069 BPM Atrial Rate : 069 BPM P-R Int : 180 ms QRS Dur : 086 ms QT Int : 380 ms P-R-T Axes : 051 029 047 degrees QTc Int : 407 ms NORMAL SINUS RHYTHM NORMAL ECG WHEN COMPARED WITH ECG OF 17-OCT-2018 20:41, NO SIGNIFICANT CHANGE WAS FOUND Confirmed by Jaydon Mccloud MD ([id number]) on 07/19/2019 10:17:04 AM Referred By: Torito Pool Confirmed By:Jaydon Mccloud MD
[2019-07-19 10:21] LABS: HEMATOCRIT 38.2 % (35.4-49); HEMOGLOBIN 12.8 GM/dL (11.7-16.9); MCH 30.6 pg (25.7-33.7); MCHC 33.5 g/dl (32.0-35.9); MEAN CELL VOLUME 91.1 fl (80-96); MEAN PLT VOLUME 7.8 fl (7.5-11.1); PLATELET COUNT 293 K/MM3 (134-434); RBC 4.19 M/mm3 (4.00-5.60); RDW 13.3 % (11.9-15.9)
[2019-07-19] MEDS: PRENATAL VITAMINS W/ FOLIC ACID TABLET (FP) PO SCH (10:31)
--- NOTE | 2019-07-19 11:16 | CONSULT ---
[facility] Psychiatric Consult - Data Date of interview: 07/19/19 Admission source: [facility] Identifying data: Revisit to [facility] and admission to [address] [place] [address] for this 58 y/o AA male self-referred for detoxification. MARCELLE issues : alcohol, cocaine, opioid , nicotine. Patient is , father of two (claimed no dependents at a previous encounter with this grant writer), homeless, unemployed and now supported on [facility] benefits (self-report). Substance Abuse History: Discussed with the patient. Refer to [facility] report for details. As follows : Smoking history: Current every day smoker. Have you smoked in the past 12 months: Yes. Aproximately how many cigarettes per day: 5. Hx Chewing Tobacco Use: No. Initiated information on smoking cessation: Yes. 'Breaking Loose' booklet given: 07/18/19. - Substances abused. Alcohol. Substance route: Oral. Frequency: Daily. Amount used: liquor- 1 PINT , BEER- 1 (40oz). Age of first use: 12. Date of last use: 07/17/19. Heroin. Substance route: Inhalation. Frequency: Daily. Amount used: 3 bags. Age of first use: 21. Date of last use: 07/17/19 Medical History: Medical profile is remarkable for hepatitis C and antecedent of orthosurgery in 1985 (fracture of jaw). Noted report of allergy to penicillins. Psychiatric History: Patient denies history of psychiatric hospitalizations. He reports that he gets psychiatric OPD care at the [facility] mental health clinic. Endorses the diagnosis of bipolar disorder. Mr Musa denies history of suicide attempts. This is contradiction with history given to grant writer by the same patient in encounter of 10/18/18 : " patient endorses an account of six psychiatric hospitalizations since the onset of his emotional disturbances at age 16. Mr Perkins is known to [facility] (5 admisssions) and [facility] (one admission). He is vague about dates and time and past OPD care settings. He reports that most of his treatments " took place in nursing home " where he appears to having stayed over 17-20 years of his adult life. He remembers his medications as trazodone, seroquel and risperdal; " I have received several diagnoses: depression, anxiety, chemical imbalance ". Patient has a solid history of non-compliance with OPD care. He used to be a patient at [facility] (stopped attending that program 3 years ago). He indicates that he has been lost to follow up for several months. Patient denies history of suicide attempts (which conflicts with past statements he made to clinicians that were indicative of suicide attempt via hanging) ". patient is an unreliable historian. Physical/Sexual Abuse/Trauma History: Patient denies history of abuse. Lost his , three years ago, to complications of emphysema (self-report). Additional Comment: Urine drug screen results: MOP-Opiates. Noted. Mental Status Exam - Mental Status Exam Alert and Oriented to: Time, Place, Person Cognitive Function: Grossly Intact Patient Appearance: Unkempt, Disheveled Mood: Nervous, Withdrawn Affect: Mood Congruent, Constricted Patient Behavior: Sedated (mild sedation ), Fatigued Speech Pattern: Delayed, Slurred Voice Loudness: Normal Thought Process: Goal Oriented Thought Disorder: Not Present Hallucinations: Denies Suicidal Ideation: Denies Homicidal Ideation: Denies Insight/Judgement: Poor Sleep: Well Appetite: Good (as evidenced by empty foodtray noted at bedside) Gait/Station: Other (not observed; patient in bed for duration of interview) Psychiatric Findings - Problem List ([place] 1, 2,3) (1) Alcohol dependence with uncomplicated withdrawal Current Visit: Yes Status: Acute (2) Opioid dependence with withdrawal Current Visit: Yes Status: Acute (3) Nicotine dependence Current Visit: Yes Status: Chronic Qualifiers: Nicotine product type: cigarettes Substance use status: uncomplicated Qualified Code(s): F17.210 - Nicotine dependence, cigarettes, uncomplicated (4) Substance induced mood disorder Current Visit: Yes Status: Chronic (5) History of bipolar disorder Current Visit: Yes Status: Chronic Comment: No OPD care. (6) Non-compliance Current Visit: Yes Status: Chronic - Initial Treatment Plan Initial Treatment Plan: Psychoeducation. Sleep hygiene. Detoxification. Patient requests resumption of risperdal and lexapro. Medications reconciled : risperdal 1 mg po hs + lexapro 10 mg po daily. Side effects/benefits of both drugs are discussed with the patient. Mr Musa is made aware of potential for abnormal involuntary movements, dystonias, akathisia, tardive dyskinesia, sexual dysfunction, galactorrhea, gynecomastia and cardiovascular adverse events. Patient gave his consent (verbal) to MD. Garcia. Attempt made to verify medications via calling [employer] # [id number] at [phone] : unsuccessful ( caller was placed on indefinite hold). Benefits of resuming these drugs at current doses outweighs risks.
[2019-07-19 11:35] LABS: ALBUMIN 3.4 g/dl (3.4-5.0); BILIRUBIN,TOTAL 0.6 mg/dL (0.2-1); BLOOD UREA NITROGEN 19.4 mg/dL (7-18); CALCIUM 8.3 mg/dL (8.5-10.1); CREATININE 0.8 mg/dL (0.55-1.3); POTASSIUM 4.6 mmol/L (3.5-5.1); TOT PROT 7.1 g/dl (6.4-8.2)
[2019-07-19] MEDS: THIAMINE HCL 100 MG TABLET (FP) PO SCH (22:08)
[2019-07-19] MEDS: MELATONIN 5 MG TABLETS PO PRN (22:08)
[2019-07-19] MEDS: risperiDONE 1 MG TABLET (FP) PO SCH (23:24)
[2019-07-20] MEDS: LORazepam 1 MG TABLET PO SCH ×4 (05:44→22:16)
[2019-07-20] MEDS ORDERED: METHADONE HCL 10 MG TABLET (FOR DETOX USE ONLY) PO ONE (10:00)
[2019-07-20] MEDS: PRENATAL VITAMINS W/ FOLIC ACID TABLET (FP) PO SCH (10:37)
[2019-07-20] MEDS: ESCITALOPRAM OXALATE 10 MG TABLET (FP) PO SCH (10:37)
--- NOTE | 2019-07-20 11:21 | PN ---
S CIWA - CIWA Score Nausea/Vomitin-Mild Nausea/No Vomiting Muscle Tremors: 2 Anxiety: 2 Agitation: 2 Paroxysmal Sweats: 1-Minimal Palms Moist Orientation: 0-Oriented Tacttile Disturbances: 0-None Auditory Disturbances: 0-None Visual Disturbances: 0-None Headache: 0-None Present CIWA-Ar Total Score: 8 BHS COWS - Scale Resting Pulse: 0= [place] 80 or Below Sweatin= Chills/Flushing Restless Observation: 0= Sits Still Pupil Size: 1= Pupils >than Normal Bone or Joint Aches: 1= Mild Discomfort Runny Nose/ Eye Tearin= Nasal Congestion GI Upset > 30mins: 2= Nausea/Diarrhea Tremor Observation of Outstretched Hands: 1= Tremor [place], Not Seen Yawning Observation: 0= None Anxiety or Irritability: 1=Feels Anxious/Irritable Goose Flesh Skin: 0=Smooth Skin COWS Score: 8 S Progress Note (SOAP) Subjective: 58 years old male admitted on 07/18/19 for alcohol and opiate withdrawal sx management treating with ativan and methadone detox regimens doing ok today ate breakfast less tremor slept through the night Objective: 07/20/19 11:27 Vital Signs Temperature 98.4 F 07/20/19 09:16 Pulse Rate 73 07/20/19 09:16 Respiratory Rate 16 07/20/19 09:16 Blood Pressure 138/84 07/20/19 09:16 O2 Sat by Pulse Oximetry (%) Laboratory Last Values WBC 8.0 K/mm3 (4.0-10.0) 07/19/19 07:00 RBC 4.19 M/mm3 (4.00-5.60) 07/19/19 07:00 Hgb 12.8 GM/dL (11.7-16.9) 07/19/19 07:00 Hct 38.2 % (35.4-49) 07/19/19 07:00 MCV 91.1 fl (80-96) 07/19/19 07:00 MCH 30.6 pg (25.7-33.7) 07/19/19 07:00 MCHC 33.5 g/dl (32.0-35.9) 07/19/19 07:00 RDW 13.3 % (11.9-15.9) D 07/19/19 07:00 Plt Count 293 K/MM3 (134-434) 07/19/19 07:00 MPV 7.8 fl (7.5-11.1) 07/19/19 07:00 Sodium 137 mmol/L (136-145) 07/19/19 07:00 Potassium 4.6 mmol/L (3.5-5.1) 07/19/19 07:00 Chloride 108 mmol/L (98-107) H 07/19/19 07:00 Carbon Dioxide 24 mmol/L (21-32) 07/19/19 07:00 Anion Gap 5 MMOL/L (8-16) L 07/19/19 07:00 BUN 19.4 mg/dL (7-18) H 07/19/19 07:00 Creatinine 0.8 mg/dL (0.55-1.3) 07/19/19 07:00 Est GFR (CKD-EPI)AfAm 114.13 07/19/19 07:00 Est GFR (CKD-EPI)NonAf 98.47 07/19/19 07:00 Random Glucose 108 mg/dL (74-106) H 07/19/19 07:00 Calcium 8.3 mg/dL (8.5-10.1) L 07/19/19 07:00 Total Bilirubin 0.6 mg/dL (0.2-1) 07/19/19 07:00 AST 73 U/L (15-37) H 07/19/19 07:00 ALT 111 U/L (13-61) H 07/19/19 07:00 Alkaline Phosphatase 124 U/L (45-117) H 07/19/19 07:00 Total Protein 7.1 g/dl (6.4-8.2) 07/19/19 07:00 Albumin 3.4 g/dl (3.4-5.0) 07/19/19 07:00 RPR Titer Nonreactive (NONREACTIVE) 07/19/19 07:00 lab noted Assessment: 07/20/19 11:30 alcohol and opiate withdrawal Plan: ativan and methadone regimens
[2019-07-20] MEDS ORDERED: cloNIDine HCL 0.1 MG TABLET PO PRN (11:29)
[2019-07-20] MEDS: THIAMINE HCL 100 MG TABLET (FP) PO SCH (22:16)
[2019-07-20] MEDS: risperiDONE 1 MG TABLET (FP) PO SCH (22:16)
[2019-07-21] MEDS ORDERED: LORazepam 0.5 MG TABLET PO PRN
[2019-07-21] MEDS: LORazepam 0.5 MG TABLET PO SCH ×4 (05:36→22:01)
[2019-07-21] MEDS ORDERED: METHADONE HCL 10 MG TABLET (FOR DETOX USE ONLY) ONE (09:50)
[2019-07-21] MEDS ORDERED: METHADONE HCL 5 MG TABLET (FOR DETOX USE ONLY) ONE (09:51)
[2019-07-21] MEDS ORDERED: METHADONE (DETOX) 10 MG, METHADONE (DETOX) 5 MG PO ONE (10:00)
--- NOTE | 2019-07-21 10:02 | PN ---
S CIWA - CIWA Score Nausea/Vomitin-No Nausea/No Vomiting Muscle Tremors: 2 Anxiety: 2 Agitation: 1-Slight > Activity Paroxysmal Sweats: 1-Minimal Palms Moist Orientation: 0-Oriented Tacttile Disturbances: 0-None Auditory Disturbances: 0-None Visual Disturbances: 0-None Headache: 0-None Present CIWA-Ar Total Score: 6 BHS COWS - Scale Resting Pulse: 1= [place] 81-100 Sweatin= Chills/Flushing Restless Observation: 0= Sits Still Pupil Size: 0= Normal to Room Light Bone or Joint Aches: 1= Mild Discomfort Runny Nose/ Eye Tearin= None GI Upset > 30mins: 1= Stomach Cramp Tremor Observation of Outstretched Hands: 1= Tremor [place], Not Seen Yawning Observation: 0= None Anxiety or Irritability: 1=Feels Anxious/Irritable Goose Flesh Skin: 0=Smooth Skin COWS Score: 6 S Progress Note (SOAP) Subjective: 58 years old male admitted on 07/18/19 for alcohol and opiate withdrawal sx management treating with ativan and methadone detox regimens feeling better today sitting on the bed eating breakfast no trouble chewing nor swallowing Objective: 07/21/19 10:01 Vital Signs Temperature 98.9 F 07/21/19 09:25 Pulse Rate 86 07/21/19 09:25 Respiratory Rate 18 07/21/19 09:25 Blood Pressure 135/92 07/21/19 09:25 O2 Sat by Pulse Oximetry (%) Laboratory Last Values WBC 8.0 K/mm3 (4.0-10.0) 07/19/19 07:00 RBC 4.19 M/mm3 (4.00-5.60) 07/19/19 07:00 Hgb 12.8 GM/dL (11.7-16.9) 07/19/19 07:00 Hct 38.2 % (35.4-49) 07/19/19 07:00 MCV 91.1 fl (80-96) 07/19/19 07:00 MCH 30.6 pg (25.7-33.7) 07/19/19 07:00 MCHC 33.5 g/dl (32.0-35.9) 07/19/19 07:00 RDW 13.3 % (11.9-15.9) D 07/19/19 07:00 Plt Count 293 K/MM3 (134-434) 07/19/19 07:00 MPV 7.8 fl (7.5-11.1) 07/19/19 07:00 Sodium 137 mmol/L (136-145) 07/19/19 07:00 Potassium 4.6 mmol/L (3.5-5.1) 07/19/19 07:00 Chloride 108 mmol/L (98-107) H 07/19/19 07:00 Carbon Dioxide 24 mmol/L (21-32) 07/19/19 07:00 Anion Gap 5 MMOL/L (8-16) L 07/19/19 07:00 BUN 19.4 mg/dL (7-18) H 07/19/19 07:00 Creatinine 0.8 mg/dL (0.55-1.3) 07/19/19 07:00 Est GFR (CKD-EPI)AfAm 114.13 07/19/19 07:00 Est GFR (CKD-EPI)NonAf 98.47 07/19/19 07:00 Random Glucose 108 mg/dL (74-106) H 07/19/19 07:00 Calcium 8.3 mg/dL (8.5-10.1) L 07/19/19 07:00 Total Bilirubin 0.6 mg/dL (0.2-1) 07/19/19 07:00 AST 73 U/L (15-37) H 07/19/19 07:00 ALT 111 U/L (13-61) H 07/19/19 07:00 Alkaline Phosphatase 124 U/L (45-117) H 07/19/19 07:00 Total Protein 7.1 g/dl (6.4-8.2) 07/19/19 07:00 Albumin 3.4 g/dl (3.4-5.0) 07/19/19 07:00 RPR Titer Nonreactive (NONREACTIVE) 07/19/19 07:00 lab noted Assessment: 07/21/19 10:01 alcohol and opiate withdrawal Plan: ativan and methadone regimens
[2019-07-21] MEDS: ESCITALOPRAM OXALATE 10 MG TABLET (FP) PO SCH (10:41)
[2019-07-21] MEDS: PRENATAL VITAMINS W/ FOLIC ACID TABLET (FP) PO SCH (10:41)
[2019-07-21] MEDS: risperiDONE 1 MG TABLET (FP) PO SCH (22:01)
[2019-07-21] MEDS: THIAMINE HCL 100 MG TABLET (FP) PO SCH (22:01)
[2019-07-22] MEDS ORDERED: LORazepam 0.5 MG TABLET PO ONE (05:00)
[2019-07-22] MEDS: ESCITALOPRAM OXALATE 10 MG TABLET (FP) PO SCH (09:26)
[2019-07-22] MEDS: PRENATAL VITAMINS W/ FOLIC ACID TABLET (FP) PO SCH (09:26)
[2019-07-22] MEDS ORDERED: METHADONE HCL 10 MG TABLET (FOR DETOX USE ONLY) PO ONE (10:00)
--- NOTE | 2019-07-22 11:33 | PN ---
[facility] CIWA - CIWA Score Nausea/Vomitin-No Nausea/No Vomiting Muscle Tremors: None Anxiety: 2 Agitation: 0-Normal Activity Paroxysmal Sweats: 1-Minimal Palms Moist Orientation: 0-Oriented Tacttile Disturbances: 0-None Auditory Disturbances: 0-None Visual Disturbances: 0-None Headache: 0-None Present CIWA-Ar Total Score: 3 S COWS - Scale Resting Pulse: 1= [place] 81-100 Sweatin= No chills or Flushing Restless Observation: 0= Sits Still Pupil Size: 0= Normal to Room Light Bone or Joint Aches: 0= None Runny Nose/ Eye Tearin= None GI Upset > 30mins: 0= None Tremor Observation of Outstretched Hands: 0= None Yawning Observation: 0= None Anxiety or Irritability: 2=Irritable/Anxious Goose Flesh Skin: 0=Smooth Skin COWS Score: 3 [facility] Progress Note (SOAP) Subjective: c/o mild withdrawal symptoms. Objective: 07/22/19 11:31 Vital Signs 07/22/19 07/22/19 06:13 09:25 Temperature 99.0 F 98.6 F Pulse Rate 84 87 Respiratory 18 17 Rate Blood Pressure 120/82 126/79 Laboratory Last Values WBC 8.0 K/mm3 (4.0-10.0) 07/19/19 07:00 RBC 4.19 M/mm3 (4.00-5.60) 07/19/19 07:00 Hgb 12.8 GM/dL (11.7-16.9) 07/19/19 07:00 Hct 38.2 % (35.4-49) 07/19/19 07:00 MCV 91.1 fl (80-96) 07/19/19 07:00 MCH 30.6 pg (25.7-33.7) 07/19/19 07:00 MCHC 33.5 g/dl (32.0-35.9) 07/19/19 07:00 RDW 13.3 % (11.9-15.9) D 07/19/19 07:00 Plt Count 293 K/MM3 (134-434) 07/19/19 07:00 MPV 7.8 fl (7.5-11.1) 07/19/19 07:00 Sodium 137 mmol/L (136-145) 07/19/19 07:00 Potassium 4.6 mmol/L (3.5-5.1) 07/19/19 07:00 Chloride 108 mmol/L (98-107) H 07/19/19 07:00 Carbon Dioxide 24 mmol/L (21-32) 07/19/19 07:00 Anion Gap 5 MMOL/L (8-16) L 07/19/19 07:00 BUN 19.4 mg/dL (7-18) H 07/19/19 07:00 Creatinine 0.8 mg/dL (0.55-1.3) 07/19/19 07:00 Est GFR (CKD-EPI)AfAm 114.13 07/19/19 07:00 Est GFR (CKD-EPI)NonAf 98.47 07/19/19 07:00 Random Glucose 108 mg/dL (74-106) H 07/19/19 07:00 Calcium 8.3 mg/dL (8.5-10.1) L 07/19/19 07:00 Total Bilirubin 0.6 mg/dL (0.2-1) 07/19/19 07:00 AST 73 U/L (15-37) H 07/19/19 07:00 ALT 111 U/L (13-61) H 07/19/19 07:00 Alkaline Phosphatase 124 U/L (45-117) H 07/19/19 07:00 Total Protein 7.1 g/dl (6.4-8.2) 07/19/19 07:00 Albumin 3.4 g/dl (3.4-5.0) 07/19/19 07:00 RPR Titer Nonreactive (NONREACTIVE) 07/19/19 07:00 Labs noted. Assessment: 07/22/19 11:32 AOX3, in no acute respiratory distress. Full ROM, ambulating in the unit. mild Withdrawal symptoms. For d/c tomorrow. Plan: continue detox. D/c in AM.
[2019-07-22] MEDS: THIAMINE HCL 100 MG TABLET (FP) PO SCH (21:52)
[2019-07-22] MEDS: MELATONIN 5 MG TABLETS PO PRN (21:52)
[2019-07-22] MEDS: risperiDONE 1 MG TABLET (FP) PO SCH (21:52)
[2019-07-23] MEDS ORDERED: METHADONE HCL 5 MG TABLET (FOR DETOX USE ONLY) PO ONE (06:00)
[2019-07-23 09:01] VITALS: BP 141/88; PULSE 72; TEMP 98.6
[2019-07-23] MEDS: PRENATAL VITAMINS W/ FOLIC ACID TABLET (FP) PO SCH (10:36)
[2019-07-23] MEDS: ESCITALOPRAM OXALATE 10 MG TABLET (FP) PO SCH (10:36)
--- NOTE | 2019-07-23 12:29 | DS ---
[facility] Detox Discharge Summary Admission Date: 07/18/19 Discharge Date: 07/23/19 - History Present History: Alcohol Dependence, Opioid Dependence Additional Comments: Pt is medically cleared and discharged today. Pt has completed the detox protocol and is discharged to [facility] for continued management. Pt is encouraged to follow through with the rehab protocol. Pt verbalized understanding of the information given. Pt is alert and oriented x3 and in no respiratory distress. Pertinent Past History: h/o alcohol and heroin use disorder. - Physical Exam Results Vital Signs: Vital Signs Temperature 98.6 F 07/23/19 09:00 Pulse Rate 72 07/23/19 09:00 Respiratory Rate 18 07/23/19 09:00 Blood Pressure 141/88 07/23/19 09:00 O2 Sat by Pulse Oximetry (%) Vital Signs 07/23/19 07/23/19 06:42 09:00 Temperature 98.3 F 98.6 F Pulse Rate 81 72 Respiratory 18 18 Rate Blood Pressure 121/76 141/88 Laboratory Last Values WBC 8.0 K/mm3 (4.0-10.0) 07/19/19 07:00 RBC 4.19 M/mm3 (4.00-5.60) 07/19/19 07:00 Hgb 12.8 GM/dL (11.7-16.9) 07/19/19 07:00 Hct 38.2 % (35.4-49) 07/19/19 07:00 MCV 91.1 fl (80-96) 07/19/19 07:00 MCH 30.6 pg (25.7-33.7) 07/19/19 07:00 MCHC 33.5 g/dl (32.0-35.9) 07/19/19 07:00 RDW 13.3 % (11.9-15.9) D 07/19/19 07:00 Plt Count 293 K/MM3 (134-434) 07/19/19 07:00 MPV 7.8 fl (7.5-11.1) 07/19/19 07:00 Sodium 137 mmol/L (136-145) 07/19/19 07:00 Potassium 4.6 mmol/L (3.5-5.1) 07/19/19 07:00 Chloride 108 mmol/L (98-107) H 07/19/19 07:00 Carbon Dioxide 24 mmol/L (21-32) 07/19/19 07:00 Anion Gap 5 MMOL/L (8-16) L 07/19/19 07:00 BUN 19.4 mg/dL (7-18) H 07/19/19 07:00 Creatinine 0.8 mg/dL (0.55-1.3) 07/19/19 07:00 Est GFR (CKD-EPI)AfAm 114.13 07/19/19 07:00 Est GFR (CKD-EPI)NonAf 98.47 07/19/19 07:00 Random Glucose 108 mg/dL (74-106) H 07/19/19 07:00 Calcium 8.3 mg/dL (8.5-10.1) L 07/19/19 07:00 Total Bilirubin 0.6 mg/dL (0.2-1) 07/19/19 07:00 AST 73 U/L (15-37) H 07/19/19 07:00 ALT 111 U/L (13-61) H 07/19/19 07:00 Alkaline Phosphatase 124 U/L (45-117) H 07/19/19 07:00 Total Protein 7.1 g/dl (6.4-8.2) 07/19/19 07:00 Albumin 3.4 g/dl (3.4-5.0) 07/19/19 07:00 RPR Titer Nonreactive (NONREACTIVE) 07/19/19 07:00 Labs noted. Pertinent Admission Physical Exam Findings: withdrawal symptoms. - Treatment Hospital Course: Detox Protocol Followed, Detoxed Safely, Responded well, Discharged Condition Good, Rehab Referral Accepted Patient has Accepted a Rehab Referral to: [facility] - Medication Discharge Medications: Ambulatory Orders Escitalopram Oxalate [Lexapro -] 10 mg PO DAILY #30 tablet 05/06/18 Risperidone [Risperdal] 1 mg PO DAILY 10/17/18 - Diagnosis (1) Alcohol dependence with uncomplicated withdrawal Current Visit: Yes Status: Acute (2) Opioid dependence with withdrawal Current Visit: Yes Status: Acute (3) Nicotine dependence Current Visit: Yes Status: Chronic Qualifiers: Nicotine product type: cigarettes Substance use status: uncomplicated Qualified Code(s): F17.210 - Nicotine dependence, cigarettes, uncomplicated (4) Cannabis dependence Current Visit: No Status: Chronic (5) Cocaine dependence Current Visit: No Status: Chronic (6) Hepatitis C Current Visit: No Status: Chronic Qualifiers: Viral hepatitis chronicity: chronic Hepatic coma status: without hepatic coma Qualified Code(s): B18.2 - Chronic viral hepatitis C - AMA Did Patient Leave Against Medical Advice: No
== END 2019-07-23 11:20 | disposition home or self-care (01) | DRG 773 ==
LOC: YASAS 14:37 → Y3N 19:09
PROVIDERS: ADMIT Allergy & Immunology; ATTEND Allergy & Immunology
PROC: HZ2ZZZZ Detoxification Services for Substance Abuse Treatment (ICD-10-PCS; principal; 2019-07-18)
DX: F11.23 Opioid dependence with withdrawal (principal); F10.230 Alcohol dependence with withdrawal, uncomplicated; F14.20 Cocaine dependence, uncomplicated; F12.20 Cannabis dependence, uncomplicated; F17.210 Nicotine dependence, cigarettes, uncomplicated; F34.1 Dysthymic disorder; B18.2 Chronic viral hepatitis C; Z88.0 Allergy status to penicillin; Z91.14 Patient's other noncompliance with medication regimen
CPT/HCPCS: 36415; 80053; 85027; 86593; 93005; 93010; J2794

== ENCOUNTER 2019-07-23 11:37 | Inpatient (IN) | payer OTHER ==
--- NOTE | 2019-07-23 12:33 | HP ---
[facility] Rehab Assess/Revision - Admission History Ad[facility] to Rehab [facility]: [facility] Date of Admission to Rehab: 07/23/2019 - Vital signs Vital Signs: Vital Signs Period Temp Pulse Resp BP Sys/Bernabe Pulse Ox Last 24 Hr 98 F 83 18 127/82 Vital Signs 07/23/19 11:50 Temperature 98 F Pulse Rate 83 Respiratory 18 Rate Blood Pressure 127/82 - Findings Detox History & Physical reviewed: Yes Concur with findings: Yes Inpatient Rehab Admission - Rehab Decision to Admit Inpatient rehab admission?: Yes - Initial Determination Are CD services needed?: Yes Free of communicable disease: Yes Not in need of hospitalization: Yes - Rehab Admission Criteria Previous failed treatment: Yes Poor recovery environment: Yes Comorbidities: Yes Lacks judgement: No Patient is meeting Inpatient Rehab admission criteria:: Yes
[2019-07-23] MEDS ORDERED: hydrOXYzine PAMOATE 25 MG CAPSULE (FP) PO PRN (12:34)
[2019-07-23] MEDS ORDERED: LOPERAMIDE HCL 2 MG CAPSULE PO PRN (12:34)
[2019-07-23] MEDS ORDERED: ACETAMINOPHEN 325 MG TABLET (FP) PO PRN (12:34)
[2019-07-23] MEDS ORDERED: MAGNESIUM HYDROX 2400MG/30ML ORAL SUSPENSION 30 ML CUP PO PRN (12:34)
[2019-07-23] MEDS ORDERED: guaiFENesin 200 MG/10 ML 10 ML UNIT-DOSE CUPS PO PRN (12:34)
[2019-07-23] MEDS ORDERED: MENTHOL/PHENOL 1 EACH UD MM PRN (12:34)
[2019-07-23] MEDS ORDERED: P-EPHED 60MG/TRIPROLIDI 2.5MG TABLET PO PRN (12:34)
[2019-07-23] MEDS ORDERED: IBUPROFEN 400 MG TABLET (FP) PO PRN (12:34)
--- NOTE | 2019-07-23 16:23 | PN ---
[facility] Progress Note Note: Psychiatry Attending's note : Informed of patient's transfer to [address] From [address] [place] [address]. Called for continuity of medications orders. Mr Lencho is already known to me. See my note of 07/19/19. Intervention : Risperdal 1 mg po hs Lexapro 1 mg po daily. Patient agrees to this plan of care. Gave consent (verbal).
[2019-07-23] MEDS: THIAMINE HCL 100 MG TABLET (FP) PO SCH (21:07)
[2019-07-23] MEDS: MELATONIN 5 MG TABLETS PO PRN (21:07)
[2019-07-23] MEDS: risperiDONE 1 MG TABLET PO SCH (21:07)
[2019-07-24] MEDS: ESCITALOPRAM OXALATE 10 MG TABLET PO SCH (09:23)
[2019-07-24] MEDS: PRENATAL VITAMINS W/ FOLIC ACID TABLET (FP) PO SCH (09:23)
[2019-07-24] MEDS ORDERED: risperiDONE 1 MG TABLET PO SCH (10:00)
[2019-07-24] MEDS: risperiDONE 1 MG TABLET PO SCH (21:06)
[2019-07-24] MEDS: THIAMINE HCL 100 MG TABLET (FP) PO SCH (21:06)
[2019-07-24] MEDS: MELATONIN 5 MG TABLETS PO PRN (21:06)
[2019-07-25] MEDS: ESCITALOPRAM OXALATE 10 MG TABLET PO SCH (09:34)
[2019-07-25] MEDS: PRENATAL VITAMINS W/ FOLIC ACID TABLET (FP) PO SCH (09:34)
[2019-07-25] MEDS: risperiDONE 1 MG TABLET PO SCH (21:11)
[2019-07-25] MEDS: THIAMINE HCL 100 MG TABLET (FP) PO SCH (21:11)
[2019-07-25] MEDS: MELATONIN 5 MG TABLETS PO PRN (21:11)
[2019-07-26] MEDS: PRENATAL VITAMINS W/ FOLIC ACID TABLET (FP) PO SCH (09:59)
[2019-07-26] MEDS: ESCITALOPRAM OXALATE 10 MG TABLET PO SCH (09:59)
[2019-07-26] MEDS: THIAMINE HCL 100 MG TABLET (FP) PO SCH (21:18)
[2019-07-26] MEDS: MELATONIN 5 MG TABLETS PO PRN (21:18)
[2019-07-26] MEDS: risperiDONE 1 MG TABLET PO SCH (21:18)
[2019-07-27] MEDS: ESCITALOPRAM OXALATE 10 MG TABLET PO SCH (10:29)
[2019-07-27] MEDS: PRENATAL VITAMINS W/ FOLIC ACID TABLET (FP) PO SCH (10:29)
--- NOTE | 2019-07-27 18:23 | PN ---
[facility] Progress Note Note: Patient admitted to rehab for opiod/etoh dependence after completing detox at [facility]. Vital Signs - 24 hr 07/27/19 07/27/19 07/27/19 00:30 03:30 07:01 Temperature 98.7 F Pulse Rate 59 L Respiratory 18 18 18 Rate Blood Pressure 158/91 Labs and V/S reviewed. Continue with rehab services.
[2019-07-27] MEDS: MELATONIN 5 MG TABLETS PO PRN (21:20)
[2019-07-27] MEDS: risperiDONE 1 MG TABLET PO SCH (21:20)
[2019-07-27] MEDS: THIAMINE HCL 100 MG TABLET (FP) PO SCH (21:20)
[2019-07-28] MEDS: ESCITALOPRAM OXALATE 10 MG TABLET PO SCH (10:07)
[2019-07-28] MEDS: PRENATAL VITAMINS W/ FOLIC ACID TABLET (FP) PO SCH (10:07)
[2019-07-28 10:36] LABS: ALBUMIN 3.5 g/dl (3.4-5.0); BILIRUBIN,TOTAL 1.1 mg/dL (0.2-1); BLOOD UREA NITROGEN 16.8 mg/dL (7-18); CREATININE 0.9 mg/dL (0.55-1.3); TOT PROT 7.5 g/dl (6.4-8.2)
[2019-07-28] MEDS: risperiDONE 1 MG TABLET PO SCH (21:29)
[2019-07-28] MEDS: MELATONIN 5 MG TABLETS PO PRN (21:30)
[2019-07-28] MEDS: THIAMINE HCL 100 MG TABLET (FP) PO SCH (21:30)
[2019-07-29] MEDS: PRENATAL VITAMINS W/ FOLIC ACID TABLET (FP) PO SCH (09:52)
[2019-07-29] MEDS: ESCITALOPRAM OXALATE 10 MG TABLET PO SCH (09:52)
--- NOTE | 2019-07-29 14:01 | PN ---
[facility] Progress Note Note: Laboratory Tests 07/28/19 08:00 Sodium 141 Potassium 4.0 Chloride 106 Carbon Dioxide 30 Anion Gap 5 L BUN 16.8 Creatinine 0.9 Est GFR (CKD-EPI)AfAm 108.73 Est GFR (CKD-EPI)NonAf 93.82 Random Glucose 81 Calcium 9.0 Total Bilirubin 1.1 H AST 91 H ALT 126 H Alkaline Phosphatase 102 Total Protein 7.5 Albumin 3.5 Vital Signs Temperature 98.5 F 07/29/19 07:41 Pulse Rate 75 07/29/19 07:41 Respiratory Rate 07/29/19 07:41 Blood Pressure 127/90 07/29/19 07:41 O2 Sat by Pulse Oximetry (%) Labs appreciated. LFTS remain elevated, hx of alcohol dependence. Will repeat LFTs in one week.
[2019-07-29] MEDS: risperiDONE 1 MG TABLET PO SCH (21:11)
[2019-07-29] MEDS: MELATONIN 5 MG TABLETS PO PRN (21:11)
[2019-07-29] MEDS: THIAMINE HCL 100 MG TABLET (FP) PO SCH (21:11)
[2019-07-30] MEDS: ESCITALOPRAM OXALATE 10 MG TABLET PO SCH (09:59)
[2019-07-30] MEDS: PRENATAL VITAMINS W/ FOLIC ACID TABLET (FP) PO SCH (09:59)
[2019-07-30] MEDS: risperiDONE 1 MG TABLET PO SCH (21:30)
[2019-07-30] MEDS: THIAMINE HCL 100 MG TABLET (FP) PO SCH (21:30)
[2019-07-30] MEDS: MELATONIN 5 MG TABLETS PO PRN (21:31)
[2019-07-31] MEDS: ESCITALOPRAM OXALATE 10 MG TABLET PO SCH (10:04)
[2019-07-31] MEDS: PRENATAL VITAMINS W/ FOLIC ACID TABLET (FP) PO SCH (10:04)
[2019-07-31] MEDS: THIAMINE HCL 100 MG TABLET (FP) PO SCH (21:08)
[2019-07-31] MEDS: risperiDONE 1 MG TABLET PO SCH (21:08)
[2019-07-31] MEDS: MELATONIN 5 MG TABLETS PO PRN (21:08)
[2019-08-01] MEDS: PRENATAL VITAMINS W/ FOLIC ACID TABLET (FP) PO SCH (09:51)
[2019-08-01] MEDS: ESCITALOPRAM OXALATE 10 MG TABLET PO SCH (09:51)
[2019-08-01] MEDS: THIAMINE HCL 100 MG TABLET (FP) PO SCH (21:19)
[2019-08-01] MEDS: MELATONIN 5 MG TABLETS PO PRN (21:19)
[2019-08-01] MEDS: risperiDONE 1 MG TABLET PO SCH (21:19)
[2019-08-02] MEDS: PRENATAL VITAMINS W/ FOLIC ACID TABLET (FP) PO SCH (10:06)
[2019-08-02] MEDS: ESCITALOPRAM OXALATE 10 MG TABLET PO SCH (10:06)
[2019-08-02] MEDS: risperiDONE 1 MG TABLET PO SCH (21:31)
[2019-08-02] MEDS: MELATONIN 5 MG TABLETS PO PRN (21:31)
[2019-08-02] MEDS: THIAMINE HCL 100 MG TABLET (FP) PO SCH (21:31)
[2019-08-03] MEDS: ESCITALOPRAM OXALATE 10 MG TABLET PO SCH (10:24)
[2019-08-03] MEDS: PRENATAL VITAMINS W/ FOLIC ACID TABLET (FP) PO SCH (10:24)
[2019-08-03] MEDS: risperiDONE 1 MG TABLET PO SCH (21:04)
[2019-08-03] MEDS: THIAMINE HCL 100 MG TABLET (FP) PO SCH (21:04)
[2019-08-03] MEDS: MELATONIN 5 MG TABLETS PO PRN (21:04)
[2019-08-04] MEDS: PRENATAL VITAMINS W/ FOLIC ACID TABLET (FP) PO SCH (10:17)
[2019-08-04] MEDS: ESCITALOPRAM OXALATE 10 MG TABLET PO SCH (10:17)
[2019-08-04 14:24] LABS: ALBUMIN 3.6 g/dl (3.4-5.0); BILIRUBIN,TOTAL 0.8 mg/dL (0.2-1); BLOOD UREA NITROGEN 15.2 mg/dL (7-18); CALCIUM 8.9 mg/dL (8.5-10.1); CREATININE 0.9 mg/dL (0.55-1.3); POTASSIUM 4.3 mmol/L (3.5-5.1); TOT PROT 7.4 g/dl (6.4-8.2)
[2019-08-04] MEDS: THIAMINE HCL 100 MG TABLET (FP) PO SCH (21:28)
[2019-08-04] MEDS: risperiDONE 1 MG TABLET PO SCH (21:28)
[2019-08-04] MEDS: MELATONIN 5 MG TABLETS PO SCH (21:29)
[2019-08-05] MEDS: ESCITALOPRAM OXALATE 10 MG TABLET PO SCH (10:00)
[2019-08-05] MEDS: PRENATAL VITAMINS W/ FOLIC ACID TABLET (FP) PO SCH (10:00)
--- NOTE | 2019-08-05 15:58 | PN ---
[facility] Progress Note Note: Vital Signs Temperature 98.2 F 08/05/19 06:48 Pulse Rate 84 08/05/19 06:48 Respiratory Rate 18 08/05/19 06:48 Blood Pressure 126/86 08/05/19 06:48 O2 Sat by Pulse Oximetry (%) Laboratory Tests 07/28/19 08/04/19 08:00 08:15 Sodium 141 139 Potassium 4.0 4.3 Chloride 106 103 Carbon Dioxide 30 31 Anion Gap 5 L 5 L BUN 16.8 15.2 Creatinine 0.9 0.9 Est GFR (CKD-EPI)AfAm 108.73 108.73 Est GFR (CKD-EPI)NonAf 93.82 93.82 Random Glucose 81 86 Calcium 9.0 8.9 Total Bilirubin 1.1 H 0.8 AST 91 H 80 H ALT 126 H 124 H Alkaline Phosphatase 102 108 Total Protein 7.5 7.4 Albumin 3.5 3.6 LFTS improving. Hydration encouraged. CMP ordered 08/08/2019.
[2019-08-05] MEDS: MAG HYDROX/AL HYDROX/SIMETH 30 ML UNIT-DOSE CUP PO PRN (21:04)
[2019-08-05] MEDS: risperiDONE 1 MG TABLET PO SCH (21:04)
[2019-08-05] MEDS: THIAMINE HCL 100 MG TABLET (FP) PO SCH (21:04)
[2019-08-05] MEDS: MELATONIN 5 MG TABLETS PO SCH (21:04)
[2019-08-06] MEDS: PRENATAL VITAMINS W/ FOLIC ACID TABLET (FP) PO SCH (09:36)
[2019-08-06] MEDS: ESCITALOPRAM OXALATE 10 MG TABLET PO SCH (09:36)
[2019-08-06] MEDS: MELATONIN 5 MG TABLETS PO SCH (21:35)
[2019-08-06] MEDS: risperiDONE 1 MG TABLET PO SCH (21:35)
[2019-08-06] MEDS: THIAMINE HCL 100 MG TABLET (FP) PO SCH (21:36)
[2019-08-06] MEDS: MAG HYDROX/AL HYDROX/SIMETH 30 ML UNIT-DOSE CUP PO PRN (22:25)
[2019-08-07] MEDS: PRENATAL VITAMINS W/ FOLIC ACID TABLET (FP) PO SCH (08:59)
[2019-08-07] MEDS: ESCITALOPRAM OXALATE 10 MG TABLET PO SCH (08:59)
[2019-08-07] MEDS: THIAMINE HCL 100 MG TABLET (FP) PO SCH (21:30)
[2019-08-07] MEDS: risperiDONE 1 MG TABLET PO SCH (21:30)
[2019-08-07] MEDS: MELATONIN 5 MG TABLETS PO SCH (21:30)
[2019-08-08] MEDS: ESCITALOPRAM OXALATE 10 MG TABLET PO SCH (10:15)
[2019-08-08] MEDS: PRENATAL VITAMINS W/ FOLIC ACID TABLET (FP) PO SCH (10:15)
[2019-08-08] MEDS: risperiDONE 1 MG TABLET PO SCH (21:01)
[2019-08-08] MEDS: THIAMINE HCL 100 MG TABLET (FP) PO SCH (21:01)
[2019-08-08] MEDS: MELATONIN 5 MG TABLETS PO SCH (21:01)
[2019-08-09] MEDS: ESCITALOPRAM OXALATE 10 MG TABLET PO SCH (10:14)
[2019-08-09] MEDS: PRENATAL VITAMINS W/ FOLIC ACID TABLET (FP) PO SCH (10:14)
[2019-08-09] MEDS: THIAMINE HCL 100 MG TABLET (FP) PO SCH (21:03)
[2019-08-09] MEDS: MELATONIN 5 MG TABLETS PO SCH (21:03)
[2019-08-09] MEDS: risperiDONE 1 MG TABLET PO SCH (21:03)
[2019-08-10] MEDS: ESCITALOPRAM OXALATE 10 MG TABLET PO SCH (10:30)
[2019-08-10] MEDS: PRENATAL VITAMINS W/ FOLIC ACID TABLET (FP) PO SCH (10:30)
[2019-08-10] MEDS: MELATONIN 5 MG TABLETS PO SCH (21:34)
[2019-08-10] MEDS: risperiDONE 1 MG TABLET PO SCH (21:34)
[2019-08-10] MEDS: THIAMINE HCL 100 MG TABLET (FP) PO SCH (21:34)
[2019-08-11] MEDS: PRENATAL VITAMINS W/ FOLIC ACID TABLET (FP) PO SCH (09:35)
[2019-08-11] MEDS: ESCITALOPRAM OXALATE 10 MG TABLET PO SCH (09:35)
[2019-08-11] MEDS: risperiDONE 1 MG TABLET PO SCH (21:04)
[2019-08-11] MEDS: THIAMINE HCL 100 MG TABLET (FP) PO SCH (21:04)
[2019-08-11] MEDS: MELATONIN 5 MG TABLETS PO SCH (21:04)
[2019-08-12] MEDS: PRENATAL VITAMINS W/ FOLIC ACID TABLET (FP) PO SCH (10:22)
[2019-08-12] MEDS: ESCITALOPRAM OXALATE 10 MG TABLET PO SCH (10:22)
[2019-08-12] MEDS: risperiDONE 1 MG TABLET PO SCH (21:19)
[2019-08-12] MEDS: THIAMINE HCL 100 MG TABLET (FP) PO SCH (21:19)
[2019-08-12] MEDS: MELATONIN 5 MG TABLETS PO SCH (21:19)
[2019-08-13] MEDS: ESCITALOPRAM OXALATE 10 MG TABLET PO SCH (10:57)
[2019-08-13] MEDS: PRENATAL VITAMINS W/ FOLIC ACID TABLET (FP) PO SCH (10:57)
[2019-08-13] MEDS: MELATONIN 5 MG TABLETS PO SCH (21:07)
[2019-08-13] MEDS: risperiDONE 1 MG TABLET PO SCH (21:07)
[2019-08-13] MEDS: THIAMINE HCL 100 MG TABLET (FP) PO SCH (21:07)
[2019-08-14] MEDS: PRENATAL VITAMINS W/ FOLIC ACID TABLET (FP) PO SCH (10:38)
[2019-08-14] MEDS: ESCITALOPRAM OXALATE 10 MG TABLET PO SCH (10:38)
[2019-08-14] MEDS: THIAMINE HCL 100 MG TABLET (FP) PO SCH (22:01)
[2019-08-14] MEDS: risperiDONE 1 MG TABLET PO SCH (22:01)
[2019-08-14] MEDS: MELATONIN 5 MG TABLETS PO SCH (22:01)
[2019-08-15] MEDS: PRENATAL VITAMINS W/ FOLIC ACID TABLET (FP) PO SCH (10:31)
[2019-08-15] MEDS: ESCITALOPRAM OXALATE 10 MG TABLET PO SCH (10:32)
[2019-08-15] MEDS: THIAMINE HCL 100 MG TABLET (FP) PO SCH (21:02)
[2019-08-15] MEDS: risperiDONE 1 MG TABLET PO SCH (21:02)
[2019-08-15] MEDS: MELATONIN 5 MG TABLETS PO SCH (21:02)
[2019-08-16] MEDS: PRENATAL VITAMINS W/ FOLIC ACID TABLET (FP) PO SCH (10:20)
[2019-08-16] MEDS: ESCITALOPRAM OXALATE 10 MG TABLET PO SCH (10:20)
[2019-08-16] MEDS: MELATONIN 5 MG TABLETS PO SCH (21:40)
[2019-08-16] MEDS: risperiDONE 1 MG TABLET PO SCH (21:40)
[2019-08-16] MEDS: THIAMINE HCL 100 MG TABLET (FP) PO SCH (21:40)
[2019-08-17] MEDS: ESCITALOPRAM OXALATE 10 MG TABLET PO SCH (10:06)
[2019-08-17] MEDS: PRENATAL VITAMINS W/ FOLIC ACID TABLET (FP) PO SCH (10:06)
--- NOTE | 2019-08-17 11:32 | DS ---
[facility] Rehab Discharge Summary - [facility] Rehab Discharge Summary Admission Date: 07/23/19 Discharge Date: 08/17/19 - History Present History: Alcohol dependence, Cannabis dependence, Cocaine dependence, Opioid dependence Pertinent Past History: 58 yo m w/ PMH Hep C (untreated), anxiety, depression and polysubstance abuse. Patient endorses sniffing 2-3 bags per day since he was 21 years old. Patient states that he overdosed 3 times last year after they started to add Fentanyl to the heroin. Patient endorses drinking 1-2 pints of vodka as well as two 40 oz beers per day every day. He began drinking when he was 12 years old. Patient endorses blacking out in the past, but denies ever having seizures or DTs while withdrawing. - Discharge Physical Exam Vital Signs: Vital Signs Temperature 98 F 08/17/19 06:48 Pulse Rate 76 08/17/19 06:48 Respiratory Rate 20 08/17/19 06:48 Blood Pressure 136/93 08/17/19 06:48 O2 Sat by Pulse Oximetry (%) Pertinent Admission Physical Exam Findings: Physical General Appearance: no apparent distress HEENTM: CHERELLE, Respiratory: Lungs Clear, Neck: supple, Trachea in good position Cardiology: , S1, S2. Abdominal: +Bowel Sounds, Neurological:geriatric nursing assistant II-XII NML intact, - Treatment Discharge Condition: Outpatient referral accepted (medically stable for discharge. Patient will go to [place] Hospital Course: patient attended groups, had 1:1 meetings with his counselor, was seen by the psychiatric service. He had no significant medical issues while in rehab. - Medication Discharge Medications: Ambulatory Orders Escitalopram Oxalate [Lexapro -] 10 mg PO DAILY #30 tablet 05/06/18 Risperidone [Risperdal] 1 mg PO DAILY 10/17/18 - Medication-Assisted Treatment (MAT) Medication-Assisted Treatment (MAT): No - Discharge Instructions Diet, activity, other medical instructions: Diet: as tolerated Activity: as tolerated Other medical instructions: Please follow up with aftercare referral. - Diagnosis (1) Alcohol dependence with uncomplicated withdrawal Current Visit: No Status: Chronic (2) Opioid dependence with withdrawal Current Visit: No Status: Chronic (3) Cannabis dependence Current Visit: No Status: Chronic (4) Cocaine dependence Current Visit: No Status: Chronic - Follow-up Referral Minutes to complete discharge: 20 - AMA Did Patient Leave Against Medical Advice: No
--- NOTE | 2019-08-17 15:07 | PN ---
[facility] Progress Note Note: Patient is scheduled for discharge tomorrow. Scripts for 30 days supply of medications(Risperdal 1 mg/hs, Lexapro 10 mg/day) will be elecronically transmitted to [facility] at [address] [place] [address]
[2019-08-17] MEDS: THIAMINE HCL 100 MG TABLET (FP) PO SCH (21:04)
[2019-08-17] MEDS: risperiDONE 1 MG TABLET PO SCH (21:04)
[2019-08-17] MEDS: MELATONIN 5 MG TABLETS PO SCH (21:04)
[2019-08-18 06:23] VITALS: BP 128/92; PULSE 74; TEMP 98.2
[2019-08-18] MEDS: PRENATAL VITAMINS W/ FOLIC ACID TABLET (FP) PO SCH (09:26)
[2019-08-18] MEDS: ESCITALOPRAM OXALATE 10 MG TABLET PO SCH (09:26)
== END 2019-08-18 09:27 | disposition home or self-care (01) | DRG 772 ==
LOC: YASAS 11:37 → Y3W 11:38
PROVIDERS: ADMIT Neuromusculoskeletal Medicine & OMM; ATTEND Neuromusculoskeletal Medicine & OMM
PROC: HZ42ZZZ Group Counseling for Substance Abuse Treatment, Cognitive-Behavioral (ICD-10-PCS; principal; 2019-07-23)
DX: F11.20 Opioid dependence, uncomplicated (principal); F10.20 Alcohol dependence, uncomplicated; F14.20 Cocaine dependence, uncomplicated; F12.20 Cannabis dependence, uncomplicated; F41.9 Anxiety disorder, unspecified; F32.9 Major depressive disorder, single episode, unspecified; B18.2 Chronic viral hepatitis C; R94.5 Abnormal results of liver function studies; Z88.0 Allergy status to penicillin
CPT/HCPCS: 36415; 80053; J2794

== ENCOUNTER 2020-08-01 11:50 | Inpatient (IN) | payer OTHER ==
[2020-08-01] MEDS ORDERED: METHOCARBAMOL 500 MG TABLET PO PRN (15:47)
[2020-08-01] MEDS ORDERED: cloNIDine HCL 0.1 MG TABLET PO PRN (15:47)
[2020-08-01] MEDS ORDERED: MAGNESIUM CITRATE 300 ML BOTTLE PO PRN (15:47)
[2020-08-01] MEDS ORDERED: MAG HYDROX/AL HYDROX/SIMETH 30 ML UNIT-DOSE CUP PO PRN (15:47)
[2020-08-01] MEDS ORDERED: MENTHOL/PHENOL 1 EACH UD MM PRN (15:47)
[2020-08-01] MEDS ORDERED: methaDONE HCL 10 MG TABLET (FOR DETOX USE ONLY) PO ONE (15:47)
[2020-08-01] MEDS ORDERED: ACETAMINOPHEN 325 MG TABLET (FP) PO PRN ×2 (15:47)
[2020-08-01] MEDS ORDERED: MAGNESIUM HYDROX 2400MG/30ML ORAL SUSPENSION 30 ML CUP PO PRN (15:47)
[2020-08-01] MEDS ORDERED: IBUPROFEN 400 MG TABLET (FP) PO PRN (15:47)
[2020-08-01] MEDS ORDERED: LORazepam 1 MG TABLET PO PRN (15:47)
[2020-08-01] MEDS ORDERED: BISMUTH SUBSALICYLATE 524 MG/30 ML PO PRN (15:47)
[2020-08-01] MEDS ORDERED: NICOTINE POLACRILEX 2 MG GUM BUC PRN (15:47)
[2020-08-01] MEDS ORDERED: ONDANSETRON *ODT* 4 MG TABLET SL PRN (15:47)
[2020-08-01 15:48] VITALS: BMI 36.1
[2020-08-01] MEDS: LORazepam 2 MG TABLET PO SCH ×2 (16:50→22:10)
[2020-08-01] MEDS: hydrOXYzine PAMOATE 25 MG CAPSULE (FP) PO SCH ×2 (17:48→22:10)
[2020-08-01] MEDS ORDERED: MELATONIN 5 MG TABLETS PO SCH (22:00)
[2020-08-01] MEDS: THIAMINE HCL 100 MG TABLET (FP) PO SCH (22:10)
[2020-08-02] MEDS: LORazepam 2 MG TABLET PO SCH ×4 (07:23→22:03)
[2020-08-02] MEDS: hydrOXYzine PAMOATE 25 MG CAPSULE (FP) PO SCH (07:23)
[2020-08-02] MEDS ORDERED: methaDONE HCL 10 MG TABLET (FOR DETOX USE ONLY) ONE (08:38)
[2020-08-02] MEDS: PRENATAL VITAMINS W/ FOLIC ACID TABLET (FP) PO SCH (10:19)
[2020-08-02] MEDS: NICOTINE 14 MG/24 HOURS TOPICAL PATCH TD SCH (10:19)
[2020-08-02] MEDS ORDERED: hydrOXYzine PAMOATE 25 MG CAPSULE (FP) PO PRN (11:00)
[2020-08-02 11:05] LABS: HEMOGLOBIN 11.3 GM/dL (11.7-16.9); MCH 29.3 pg (25.7-33.7); MCHC 34.2 g/dl (32.0-35.9); MEAN CELL VOLUME 85.5 fl (80-96); MEAN PLT VOLUME 7.9 fl (7.5-11.1); PLATELET COUNT 298 K/MM3 (134-434); RBC 3.86 M/mm3 (4.00-5.60); RDW 14.6 % (11.9-15.9); WHITE BLOOD COUNT 7.3 K/mm3 (4.0-10.0)
[2020-08-02 11:34] LABS: BLOOD UREA NITROGEN 10.7 mg/dL (7-18)
[2020-08-02 11:36] LABS: CALCIUM 8.2 mg/dL (8.5-10.1)
[2020-08-02 11:37] LABS: ALBUMIN 3.1 g/dl (3.4-5.0)
[2020-08-02 11:41] LABS: CREATININE 0.8 mg/dL (0.55-1.3); TOT PROT 6.4 g/dl (6.4-8.2)
[2020-08-02 11:43] LABS: BILIRUBIN,TOTAL 0.7 mg/dL (0.2-1)
[2020-08-02] MEDS: THIAMINE HCL 100 MG TABLET (FP) PO SCH (22:03)
[2020-08-03] MEDS: LORazepam 1 MG TABLET PO SCH ×4 (05:55→22:30)
[2020-08-03] MEDS ORDERED: methaDONE HCL 10 MG TABLET (FOR DETOX USE ONLY) PO ONE (10:00)
[2020-08-03] MEDS: PRENATAL VITAMINS W/ FOLIC ACID TABLET (FP) PO SCH (10:38)
[2020-08-03] MEDS: NICOTINE 14 MG/24 HOURS TOPICAL PATCH TD SCH (10:40)
[2020-08-03] MEDS: THIAMINE HCL 100 MG TABLET (FP) PO SCH (22:30)
[2020-08-03] MEDS: MELATONIN 5 MG TABLETS PO PRN (22:31)
[2020-08-04] MEDS ORDERED: LORazepam 0.5 MG TABLET PO PRN
[2020-08-04] MEDS: LORazepam 0.5 MG TABLET PO SCH ×4 (05:46→22:23)
[2020-08-04] MEDS ORDERED: methaDONE HCL 10 MG TABLET (FOR DETOX USE ONLY) ONE (08:32)
[2020-08-04] MEDS: NICOTINE 14 MG/24 HOURS TOPICAL PATCH TD SCH (11:02)
[2020-08-04] MEDS: PRENATAL VITAMINS W/ FOLIC ACID TABLET (FP) PO SCH (11:03)
[2020-08-04] MEDS: amLODIPine BESYLATE 5 MG TABLET (FP) PO SCH (17:50)
[2020-08-04] MEDS: THIAMINE HCL 100 MG TABLET (FP) PO SCH (22:22)
[2020-08-04] MEDS: MELATONIN 5 MG TABLETS PO PRN (22:23)
[2020-08-05] MEDS ORDERED: LORazepam 0.5 MG TABLET PO ONE (05:00)
[2020-08-05] MEDS: PRENATAL VITAMINS W/ FOLIC ACID TABLET (FP) PO SCH (09:36)
[2020-08-05] MEDS: amLODIPine BESYLATE 5 MG TABLET (FP) PO SCH (09:36)
[2020-08-05] MEDS: NICOTINE 14 MG/24 HOURS TOPICAL PATCH TD SCH (09:36)
[2020-08-05] MEDS ORDERED: methaDONE HCL 10 MG TABLET (FOR DETOX USE ONLY) PO ONE (10:00)
[2020-08-05] MEDS: THIAMINE HCL 100 MG TABLET (FP) PO SCH (22:21)
[2020-08-06] MEDS: NICOTINE 14 MG/24 HOURS TOPICAL PATCH TD SCH (10:29)
[2020-08-06] MEDS: amLODIPine BESYLATE 5 MG TABLET (FP) PO SCH (10:29)
[2020-08-06] MEDS: PRENATAL VITAMINS W/ FOLIC ACID TABLET (FP) PO SCH (10:30)
[2020-08-06] MEDS: MELATONIN 5 MG TABLETS PO PRN (22:19)
[2020-08-06] MEDS: THIAMINE HCL 100 MG TABLET (FP) PO SCH (22:19)
[2020-08-07] MEDS: PRENATAL VITAMINS W/ FOLIC ACID TABLET (FP) PO SCH (09:21)
[2020-08-07] MEDS: amLODIPine BESYLATE 5 MG TABLET (FP) PO SCH (09:21)
[2020-08-07] MEDS: NICOTINE 14 MG/24 HOURS TOPICAL PATCH TD SCH (09:21)
[2020-08-07 09:45] VITALS: BP 142/79; PULSE 79; TEMP 98.2
== END 2020-08-07 10:43 | disposition other institution (70) | DRG 773 ==
LOC: YASAS 11:50 → Y6N 15:22
PROVIDERS: ADMIT Allergy & Immunology; ATTEND Allergy & Immunology
PROC: HZ2ZZZZ Detoxification Services for Substance Abuse Treatment (ICD-10-PCS; principal; 2020-08-01)
DX: F11.23 Opioid dependence with withdrawal (principal); F10.230 Alcohol dependence with withdrawal, uncomplicated; F14.20 Cocaine dependence, uncomplicated; F16.20 Hallucinogen dependence, uncomplicated; F17.210 Nicotine dependence, cigarettes, uncomplicated; F34.1 Dysthymic disorder; F41.9 Anxiety disorder, unspecified; Z21 Asymptomatic human immunodeficiency virus [HIV] infection status; I10 Essential (primary) hypertension; B18.2 Chronic viral hepatitis C; Z87.81 Personal history of (healed) traumatic fracture; Z88.0 Allergy status to penicillin; Z56.0 Unemployment, unspecified; Z59.0 Homelessness
CPT/HCPCS: 36415; 80053; 85027; 86780; 93005; 93010; C9803; U0003

== ENCOUNTER 2020-08-07 10:54 | Inpatient (IN) | payer OTHER ==
[2020-08-07] MEDS ORDERED: NICOTINE POLACRILEX 4 MG GUM BUC PRN (11:53)
[2020-08-07] MEDS ORDERED: IBUPROFEN 400 MG TABLET (FP) PO PRN (11:53)
[2020-08-07] MEDS ORDERED: guaiFENesin 200 MG/10 ML 10 ML UNIT-DOSE CUPS PO PRN (11:53)
[2020-08-07] MEDS ORDERED: P-EPHED 60MG/TRIPROLIDI 2.5MG TABLET PO PRN (11:53)
[2020-08-07] MEDS ORDERED: LOPERAMIDE HCL 2 MG CAPSULE PO PRN (11:53)
[2020-08-07] MEDS ORDERED: MENTHOL/PHENOL 1 EACH UD MM PRN (11:53)
[2020-08-07] MEDS ORDERED: MAGNESIUM HYDROX 2400MG/30ML ORAL SUSPENSION 30 ML CUP PO PRN (11:53)
[2020-08-07] MEDS ORDERED: MAGNESIUM CITRATE 300 ML BOTTLE PO PRN (11:53)
[2020-08-07] MEDS ORDERED: ACETAMINOPHEN 325 MG TABLET (FP) PO PRN (11:53)
[2020-08-07] MEDS ORDERED: MAG HYDROX/AL HYDROX/SIMETH 30 ML UNIT-DOSE CUP PO PRN (11:53)
[2020-08-07] MEDS ORDERED: cloNIDine HCL 0.1 MG TABLET PO PRN (11:57)
[2020-08-07] MEDS: MELATONIN 5 MG TABLETS PO SCH (21:34)
[2020-08-07] MEDS: THIAMINE HCL 100 MG TABLET (FP) PO SCH (21:34)
[2020-08-08] MEDS ORDERED: amLODIPine BESYLATE 5 MG TABLET (FP) PO SCH (10:00)
[2020-08-08] MEDS: PRENATAL VITAMINS W/ FOLIC ACID TABLET (FP) PO SCH (10:44)
[2020-08-08] MEDS: NICOTINE 21 MG/24 HOURS TOPICAL PATCH TD SCH (10:45)
[2020-08-08] MEDS: MELATONIN 5 MG TABLETS PO SCH (21:13)
[2020-08-08] MEDS: THIAMINE HCL 100 MG TABLET (FP) PO SCH (21:13)
[2020-08-09] MEDS ORDERED: METHOCARBAMOL 500 MG TABLET PO PRN (08:55)
[2020-08-09] MEDS: amLODIPine BESYLATE 10 MG TABLET (FP) PO SCH (09:53)
[2020-08-09] MEDS: PRENATAL VITAMINS W/ FOLIC ACID TABLET (FP) PO SCH (09:54)
[2020-08-09] MEDS: NICOTINE 21 MG/24 HOURS TOPICAL PATCH TD SCH (09:55)
[2020-08-09] MEDS: THIAMINE HCL 100 MG TABLET (FP) PO SCH (21:25)
[2020-08-09] MEDS: MELATONIN 5 MG TABLETS PO SCH (21:25)
[2020-08-10] MEDS ORDERED: PT OWN MED DRAWER 7, Y5N ONE (08:56)
[2020-08-10] MEDS: PRENATAL VITAMINS W/ FOLIC ACID TABLET (FP) PO SCH (10:06)
[2020-08-10] MEDS: amLODIPine BESYLATE 10 MG TABLET (FP) PO SCH (10:06)
[2020-08-10] MEDS: NICOTINE 21 MG/24 HOURS TOPICAL PATCH TD SCH (10:06)
[2020-08-10] MEDS: MELATONIN 5 MG TABLETS PO SCH (21:20)
[2020-08-10] MEDS: THIAMINE HCL 100 MG TABLET (FP) PO SCH (21:20)
[2020-08-11] MEDS: NICOTINE 21 MG/24 HOURS TOPICAL PATCH TD SCH (10:44)
[2020-08-11] MEDS: amLODIPine BESYLATE 10 MG TABLET (FP) PO SCH (10:44)
[2020-08-11] MEDS: PRENATAL VITAMINS W/ FOLIC ACID TABLET (FP) PO SCH (10:44)
[2020-08-11] MEDS: THIAMINE HCL 100 MG TABLET (FP) PO SCH (21:58)
[2020-08-11] MEDS: MELATONIN 5 MG TABLETS PO SCH (21:58)
[2020-08-12] MEDS: PRENATAL VITAMINS W/ FOLIC ACID TABLET (FP) PO SCH (10:41)
[2020-08-12] MEDS: amLODIPine BESYLATE 10 MG TABLET (FP) PO SCH (10:41)
[2020-08-12] MEDS: NICOTINE 21 MG/24 HOURS TOPICAL PATCH TD SCH (10:42)
[2020-08-12] MEDS: THIAMINE HCL 100 MG TABLET (FP) PO SCH (22:00)
[2020-08-12] MEDS: MELATONIN 5 MG TABLETS PO SCH (22:00)
[2020-08-13] MEDS: NICOTINE 21 MG/24 HOURS TOPICAL PATCH TD SCH (09:44)
[2020-08-13] MEDS: PRENATAL VITAMINS W/ FOLIC ACID TABLET (FP) PO SCH (09:44)
[2020-08-13] MEDS: amLODIPine BESYLATE 10 MG TABLET (FP) PO SCH (09:44)
[2020-08-13] MEDS: ONDANSETRON *ODT* 4 MG TABLET SL PRN ×2 (10:35→16:23)
[2020-08-13] MEDS: BISMUTH SUBSALICYLATE 262 MG/15 ML BTL PO SCH (12:11)
[2020-08-13] MEDS: MELATONIN 5 MG TABLETS PO SCH (21:16)
[2020-08-13] MEDS: THIAMINE HCL 100 MG TABLET (FP) PO SCH (21:16)
[2020-08-14] MEDS: NICOTINE 21 MG/24 HOURS TOPICAL PATCH TD SCH (09:14)
[2020-08-14] MEDS: BISMUTH SUBSALICYLATE 262 MG/15 ML BTL PO SCH (09:15)
[2020-08-14] MEDS: PRENATAL VITAMINS W/ FOLIC ACID TABLET (FP) PO SCH (09:15)
[2020-08-14] MEDS: amLODIPine BESYLATE 10 MG TABLET (FP) PO SCH (09:15)
[2020-08-14] MEDS: ONDANSETRON *ODT* 4 MG TABLET SL PRN (09:17)
[2020-08-14] MEDS: THIAMINE HCL 100 MG TABLET (FP) PO SCH (21:26)
[2020-08-14] MEDS: MELATONIN 5 MG TABLETS PO SCH (21:26)
[2020-08-15] MEDS: NICOTINE 21 MG/24 HOURS TOPICAL PATCH TD SCH (10:27)
[2020-08-15] MEDS: PRENATAL VITAMINS W/ FOLIC ACID TABLET (FP) PO SCH (10:27)
[2020-08-15] MEDS: amLODIPine BESYLATE 10 MG TABLET (FP) PO SCH (10:28)
[2020-08-15] MEDS: BISMUTH SUBSALICYLATE 262 MG/15 ML BTL PO SCH (10:28)
[2020-08-15] MEDS: BUPRENORPHINE/NALOXONE 4 MG/1 MG FILM PACKET SL SCH (10:29)
[2020-08-15] MEDS: THIAMINE HCL 100 MG TABLET (FP) PO SCH (21:19)
[2020-08-15] MEDS: MELATONIN 5 MG TABLETS PO SCH (21:20)
[2020-08-16] MEDS: PRENATAL VITAMINS W/ FOLIC ACID TABLET (FP) PO SCH (09:39)
[2020-08-16] MEDS: amLODIPine BESYLATE 10 MG TABLET (FP) PO SCH (09:40)
[2020-08-16] MEDS: BUPRENORPHINE/NALOXONE 4 MG/1 MG FILM PACKET SL SCH (09:40)
[2020-08-16] MEDS: BISMUTH SUBSALICYLATE 262 MG/15 ML BTL PO SCH (09:41)
[2020-08-16] MEDS: NICOTINE 21 MG/24 HOURS TOPICAL PATCH TD SCH (09:41)
[2020-08-16] MEDS: THIAMINE HCL 100 MG TABLET (FP) PO SCH (21:41)
[2020-08-16] MEDS: MELATONIN 5 MG TABLETS PO SCH (21:41)
[2020-08-17] MEDS: amLODIPine BESYLATE 10 MG TABLET (FP) PO SCH (10:36)
[2020-08-17] MEDS: PRENATAL VITAMINS W/ FOLIC ACID TABLET (FP) PO SCH (10:36)
[2020-08-17] MEDS: NICOTINE 21 MG/24 HOURS TOPICAL PATCH TD SCH (10:36)
[2020-08-17] MEDS: BUPRENORPHINE/NALOXONE 4 MG/1 MG FILM PACKET SL SCH (10:37)
[2020-08-17] MEDS: BISMUTH SUBSALICYLATE 262 MG/15 ML BTL PO SCH (10:37)
[2020-08-17] MEDS: THIAMINE HCL 100 MG TABLET (FP) PO SCH (21:10)
[2020-08-17] MEDS: SUVOREXANT 5 MG TABLET PO PRN (21:10)
[2020-08-17] MEDS: MELATONIN 5 MG TABLETS PO SCH (21:10)
[2020-08-18] MEDS: PRENATAL VITAMINS W/ FOLIC ACID TABLET (FP) PO SCH (09:47)
[2020-08-18] MEDS: amLODIPine BESYLATE 10 MG TABLET (FP) PO SCH (09:47)
[2020-08-18] MEDS: BUPRENORPHINE/NALOXONE 4 MG/1 MG FILM PACKET SL SCH (09:49)
[2020-08-18] MEDS: NICOTINE 21 MG/24 HOURS TOPICAL PATCH TD SCH (09:49)
[2020-08-18] MEDS: ESCITALOPRAM OXALATE 10 MG TABLET PO SCH (09:49)
[2020-08-18] MEDS: BISMUTH SUBSALICYLATE 262 MG/15 ML BTL PO SCH (09:49)
[2020-08-18] MEDS ORDERED: MASKS NR ONE (15:30)
[2020-08-18] MEDS: SUVOREXANT 5 MG TABLET PO PRN (21:30)
[2020-08-18] MEDS: THIAMINE HCL 100 MG TABLET (FP) PO SCH (21:30)
[2020-08-18] MEDS: MELATONIN 5 MG TABLETS PO SCH (21:30)
[2020-08-19] MEDS: BUPRENORPHINE/NALOXONE 4 MG/1 MG FILM PACKET SL SCH (09:37)
[2020-08-19] MEDS: amLODIPine BESYLATE 10 MG TABLET (FP) PO SCH (09:37)
[2020-08-19] MEDS: NICOTINE 21 MG/24 HOURS TOPICAL PATCH TD SCH (09:37)
[2020-08-19] MEDS: PRENATAL VITAMINS W/ FOLIC ACID TABLET (FP) PO SCH (09:37)
[2020-08-19] MEDS: BISMUTH SUBSALICYLATE 262 MG/15 ML BTL PO SCH (09:39)
[2020-08-19] MEDS: hydrOXYzine PAMOATE 25 MG CAPSULE (FP) PO PRN (09:39)
[2020-08-19] MEDS: ESCITALOPRAM OXALATE 10 MG TABLET PO SCH (09:39)
[2020-08-19] MEDS: MELATONIN 5 MG TABLETS PO SCH (21:05)
[2020-08-19] MEDS: SUVOREXANT 5 MG TABLET PO PRN (21:05)
[2020-08-19] MEDS: THIAMINE HCL 100 MG TABLET (FP) PO SCH (21:05)
[2020-08-20] MEDS: PRENATAL VITAMINS W/ FOLIC ACID TABLET (FP) PO SCH (10:14)
[2020-08-20] MEDS: BISMUTH SUBSALICYLATE 262 MG/15 ML BTL PO SCH (10:14)
[2020-08-20] MEDS: BUPRENORPHINE/NALOXONE 4 MG/1 MG FILM PACKET SL SCH (10:14)
[2020-08-20] MEDS: ESCITALOPRAM OXALATE 10 MG TABLET PO SCH (10:14)
[2020-08-20] MEDS: NICOTINE 21 MG/24 HOURS TOPICAL PATCH TD SCH (10:14)
[2020-08-20] MEDS: amLODIPine BESYLATE 10 MG TABLET (FP) PO SCH (10:14)
[2020-08-20] MEDS: MELATONIN 5 MG TABLETS PO SCH (22:02)
[2020-08-20] MEDS: THIAMINE HCL 100 MG TABLET (FP) PO SCH (22:02)
[2020-08-21] MEDS: NICOTINE 21 MG/24 HOURS TOPICAL PATCH TD SCH (10:15)
[2020-08-21] MEDS: PRENATAL VITAMINS W/ FOLIC ACID TABLET (FP) PO SCH (10:15)
[2020-08-21] MEDS: amLODIPine BESYLATE 10 MG TABLET (FP) PO SCH (10:15)
[2020-08-21] MEDS: ESCITALOPRAM OXALATE 10 MG TABLET PO SCH (10:15)
[2020-08-21] MEDS: BUPRENORPHINE/NALOXONE 4 MG/1 MG FILM PACKET SL SCH (10:16)
[2020-08-21] MEDS: BISMUTH SUBSALICYLATE 262 MG/15 ML BTL PO SCH (10:16)
[2020-08-21] MEDS: THIAMINE HCL 100 MG TABLET (FP) PO SCH (21:09)
[2020-08-21] MEDS: MELATONIN 5 MG TABLETS PO SCH (21:09)
[2020-08-21] MEDS: hydrOXYzine PAMOATE 25 MG CAPSULE (FP) PO PRN (21:10)
[2020-08-22] MEDS: BUPRENORPHINE/NALOXONE 4 MG/1 MG FILM PACKET SL SCH (09:42)
[2020-08-22] MEDS: amLODIPine BESYLATE 10 MG TABLET (FP) PO SCH (09:43)
[2020-08-22] MEDS: hydrOXYzine PAMOATE 25 MG CAPSULE (FP) PO PRN (09:43)
[2020-08-22] MEDS: NICOTINE 21 MG/24 HOURS TOPICAL PATCH TD SCH (09:44)
[2020-08-22] MEDS: ESCITALOPRAM OXALATE 10 MG TABLET PO SCH (09:44)
[2020-08-22] MEDS: BISMUTH SUBSALICYLATE 262 MG/15 ML BTL PO SCH (09:45)
[2020-08-22] MEDS: PRENATAL VITAMINS W/ FOLIC ACID TABLET (FP) PO SCH (09:45)
[2020-08-22] MEDS: THIAMINE HCL 100 MG TABLET (FP) PO SCH (21:37)
[2020-08-22] MEDS: SUVOREXANT 5 MG TABLET PO PRN (21:38)
[2020-08-23] MEDS: ESCITALOPRAM OXALATE 10 MG TABLET PO SCH (09:50)
[2020-08-23] MEDS: hydrOXYzine PAMOATE 25 MG CAPSULE (FP) PO PRN (09:50)
[2020-08-23] MEDS: amLODIPine BESYLATE 10 MG TABLET (FP) PO SCH (09:50)
[2020-08-23] MEDS: BUPRENORPHINE/NALOXONE 4 MG/1 MG FILM PACKET SL SCH (09:50)
[2020-08-23] MEDS: PRENATAL VITAMINS W/ FOLIC ACID TABLET (FP) PO SCH (09:50)
[2020-08-23] MEDS: NICOTINE 21 MG/24 HOURS TOPICAL PATCH TD SCH (09:50)
[2020-08-23] MEDS: BISMUTH SUBSALICYLATE 262 MG/15 ML BTL PO SCH (09:50)
[2020-08-23] MEDS ORDERED: BUPRENORPHINE/NALOXONE 4 MG/1 MG FILM PACKET SL ONE (20:00)
[2020-08-23] MEDS: SUVOREXANT 5 MG TABLET PO PRN (21:14)
[2020-08-23] MEDS: THIAMINE HCL 100 MG TABLET (FP) PO SCH (21:14)
[2020-08-24] MEDS: amLODIPine BESYLATE 10 MG TABLET (FP) PO SCH (09:48)
[2020-08-24] MEDS: BUPRENORPHINE/NALOXONE 8 MG/2 MG FILM PACKET SL SCH (09:48)
[2020-08-24] MEDS: ESCITALOPRAM OXALATE 10 MG TABLET PO SCH (09:48)
[2020-08-24] MEDS: PRENATAL VITAMINS W/ FOLIC ACID TABLET (FP) PO SCH (09:49)
[2020-08-24] MEDS: NICOTINE 21 MG/24 HOURS TOPICAL PATCH TD SCH (09:49)
[2020-08-24] MEDS: BISMUTH SUBSALICYLATE 262 MG/15 ML BTL PO SCH (09:50)
[2020-08-24] MEDS: hydrOXYzine PAMOATE 25 MG CAPSULE (FP) PO PRN (21:40)
[2020-08-24] MEDS: SUVOREXANT 5 MG TABLET PO PRN (21:40)
[2020-08-24] MEDS: THIAMINE HCL 100 MG TABLET (FP) PO SCH (21:40)
[2020-08-25] MEDS: hydrOXYzine PAMOATE 25 MG CAPSULE (FP) PO PRN ×2 (09:42→22:37)
[2020-08-25] MEDS: NICOTINE 21 MG/24 HOURS TOPICAL PATCH TD SCH (09:42)
[2020-08-25] MEDS: PRENATAL VITAMINS W/ FOLIC ACID TABLET (FP) PO SCH (09:42)
[2020-08-25] MEDS: BUPRENORPHINE/NALOXONE 8 MG/2 MG FILM PACKET SL SCH (09:42)
[2020-08-25] MEDS: amLODIPine BESYLATE 10 MG TABLET (FP) PO SCH (09:43)
[2020-08-25] MEDS: ESCITALOPRAM OXALATE 10 MG TABLET PO SCH (09:44)
[2020-08-25] MEDS: BISMUTH SUBSALICYLATE 262 MG/15 ML BTL PO SCH (09:46)
[2020-08-25] MEDS ORDERED: MELATONIN 5 MG TABLETS PO ONE ×2 (22:04→22:05)
[2020-08-25] MEDS: THIAMINE HCL 100 MG TABLET (FP) PO SCH (22:37)
[2020-08-26] MEDS: ESCITALOPRAM OXALATE 10 MG TABLET PO SCH (10:31)
[2020-08-26] MEDS: amLODIPine BESYLATE 10 MG TABLET (FP) PO SCH (10:31)
[2020-08-26] MEDS: BISMUTH SUBSALICYLATE 262 MG/15 ML BTL PO SCH (10:31)
[2020-08-26] MEDS: hydrOXYzine PAMOATE 25 MG CAPSULE (FP) PO PRN ×2 (10:31→21:45)
[2020-08-26] MEDS: BUPRENORPHINE/NALOXONE 8 MG/2 MG FILM PACKET SL SCH (10:31)
[2020-08-26] MEDS: NICOTINE 21 MG/24 HOURS TOPICAL PATCH TD SCH (10:31)
[2020-08-26] MEDS: PRENATAL VITAMINS W/ FOLIC ACID TABLET (FP) PO SCH (10:31)
[2020-08-26] MEDS: THIAMINE HCL 100 MG TABLET (FP) PO SCH (21:45)
[2020-08-27] MEDS: amLODIPine BESYLATE 10 MG TABLET (FP) PO SCH (10:05)
[2020-08-27] MEDS: PRENATAL VITAMINS W/ FOLIC ACID TABLET (FP) PO SCH (10:05)
[2020-08-27] MEDS: NICOTINE 21 MG/24 HOURS TOPICAL PATCH TD SCH (10:05)
[2020-08-27] MEDS: BUPRENORPHINE/NALOXONE 8 MG/2 MG FILM PACKET SL SCH (10:05)
[2020-08-27] MEDS: hydrOXYzine PAMOATE 25 MG CAPSULE (FP) PO PRN ×2 (10:05→21:08)
[2020-08-27] MEDS: ESCITALOPRAM OXALATE 10 MG TABLET PO SCH (10:05)
[2020-08-27] MEDS: BISMUTH SUBSALICYLATE 262 MG/15 ML BTL PO SCH (10:07)
[2020-08-27] MEDS: THIAMINE HCL 100 MG TABLET (FP) PO SCH (21:07)
[2020-08-28] MEDS: amLODIPine BESYLATE 10 MG TABLET (FP) PO SCH (10:06)
[2020-08-28] MEDS: BUPRENORPHINE/NALOXONE 8 MG/2 MG FILM PACKET SL SCH (10:06)
[2020-08-28] MEDS: NICOTINE 21 MG/24 HOURS TOPICAL PATCH TD SCH (10:06)
[2020-08-28] MEDS: PRENATAL VITAMINS W/ FOLIC ACID TABLET (FP) PO SCH (10:06)
[2020-08-28] MEDS: BISMUTH SUBSALICYLATE 262 MG/15 ML BTL PO SCH (10:06)
[2020-08-28] MEDS: hydrOXYzine PAMOATE 25 MG CAPSULE (FP) PO PRN ×2 (10:06→21:30)
[2020-08-28] MEDS: ESCITALOPRAM OXALATE 10 MG TABLET PO SCH (10:06)
[2020-08-28] MEDS: MELATONIN 5 MG TABLETS PO PRN (21:28)
[2020-08-28] MEDS: THIAMINE HCL 100 MG TABLET (FP) PO SCH (21:28)
[2020-08-29] MEDS: hydrOXYzine PAMOATE 25 MG CAPSULE (FP) PO PRN ×2 (10:00→21:10)
[2020-08-29] MEDS: amLODIPine BESYLATE 10 MG TABLET (FP) PO SCH (10:00)
[2020-08-29] MEDS: PRENATAL VITAMINS W/ FOLIC ACID TABLET (FP) PO SCH (10:00)
[2020-08-29] MEDS: NICOTINE 21 MG/24 HOURS TOPICAL PATCH TD SCH (10:01)
[2020-08-29] MEDS: ESCITALOPRAM OXALATE 10 MG TABLET PO SCH (10:01)
[2020-08-29] MEDS: BISMUTH SUBSALICYLATE 262 MG/15 ML BTL PO SCH (10:02)
[2020-08-29] MEDS: BUPRENORPHINE/NALOXONE 8 MG/2 MG FILM PACKET SL SCH (10:02)
[2020-08-29] MEDS: MELATONIN 5 MG TABLETS PO PRN (21:10)
[2020-08-29] MEDS: THIAMINE HCL 100 MG TABLET (FP) PO SCH (21:10)
[2020-08-30] MEDS: amLODIPine BESYLATE 10 MG TABLET (FP) PO SCH (10:09)
[2020-08-30] MEDS: NICOTINE 21 MG/24 HOURS TOPICAL PATCH TD SCH (10:10)
[2020-08-30] MEDS: ESCITALOPRAM OXALATE 10 MG TABLET PO SCH (10:11)
[2020-08-30] MEDS: hydrOXYzine PAMOATE 25 MG CAPSULE (FP) PO PRN ×2 (10:11→21:43)
[2020-08-30] MEDS: BUPRENORPHINE/NALOXONE 8 MG/2 MG FILM PACKET SL SCH (10:11)
[2020-08-30] MEDS: PRENATAL VITAMINS W/ FOLIC ACID TABLET (FP) PO SCH (10:55)
[2020-08-30] MEDS: BISMUTH SUBSALICYLATE 262 MG/15 ML BTL PO SCH (10:55)
[2020-08-30] MEDS: MELATONIN 5 MG TABLETS PO PRN (21:43)
[2020-08-30] MEDS: THIAMINE HCL 100 MG TABLET (FP) PO SCH (21:44)
[2020-08-31] MEDS: ESCITALOPRAM OXALATE 10 MG TABLET PO SCH (10:03)
[2020-08-31] MEDS: PRENATAL VITAMINS W/ FOLIC ACID TABLET (FP) PO SCH (10:03)
[2020-08-31] MEDS: amLODIPine BESYLATE 10 MG TABLET (FP) PO SCH (10:03)
[2020-08-31] MEDS: hydrOXYzine PAMOATE 25 MG CAPSULE (FP) PO PRN ×2 (10:03→21:11)
[2020-08-31] MEDS: BISMUTH SUBSALICYLATE 262 MG/15 ML BTL PO SCH (10:04)
[2020-08-31] MEDS: BUPRENORPHINE/NALOXONE 8 MG/2 MG FILM PACKET SL SCH (10:04)
[2020-08-31] MEDS: NICOTINE 21 MG/24 HOURS TOPICAL PATCH TD SCH (10:04)
[2020-08-31] MEDS: MELATONIN 5 MG TABLETS PO PRN (21:11)
[2020-08-31] MEDS: THIAMINE HCL 100 MG TABLET (FP) PO SCH (21:11)
[2020-09-01] MEDS: BISMUTH SUBSALICYLATE 262 MG/15 ML BTL PO SCH (10:12)
[2020-09-01] MEDS: PRENATAL VITAMINS W/ FOLIC ACID TABLET (FP) PO SCH (10:12)
[2020-09-01] MEDS: amLODIPine BESYLATE 10 MG TABLET (FP) PO SCH (10:12)
[2020-09-01] MEDS: ESCITALOPRAM OXALATE 10 MG TABLET PO SCH (10:13)
[2020-09-01] MEDS: NICOTINE 21 MG/24 HOURS TOPICAL PATCH TD SCH (10:14)
[2020-09-01] MEDS: hydrOXYzine PAMOATE 25 MG CAPSULE (FP) PO PRN ×2 (10:15→21:20)
[2020-09-01] MEDS: BUPRENORPHINE/NALOXONE 8 MG/2 MG FILM PACKET SL SCH (10:16)
[2020-09-01] MEDS: THIAMINE HCL 100 MG TABLET (FP) PO SCH (21:20)
[2020-09-01] MEDS: MELATONIN 5 MG TABLETS PO PRN (21:20)
[2020-09-02] MEDS: ESCITALOPRAM OXALATE 10 MG TABLET PO SCH (10:05)
[2020-09-02] MEDS: amLODIPine BESYLATE 10 MG TABLET (FP) PO SCH (10:06)
[2020-09-02] MEDS: BISMUTH SUBSALICYLATE 262 MG/15 ML BTL PO SCH (10:06)
[2020-09-02] MEDS: PRENATAL VITAMINS W/ FOLIC ACID TABLET (FP) PO SCH (10:06)
[2020-09-02] MEDS: NICOTINE 21 MG/24 HOURS TOPICAL PATCH TD SCH (10:06)
[2020-09-02] MEDS: BUPRENORPHINE/NALOXONE 8 MG/2 MG FILM PACKET SL SCH (10:07)
[2020-09-02] MEDS: hydrOXYzine PAMOATE 25 MG CAPSULE (FP) PO PRN ×2 (10:08→21:11)
[2020-09-02] MEDS: THIAMINE HCL 100 MG TABLET (FP) PO SCH (21:11)
[2020-09-02] MEDS: MELATONIN 5 MG TABLETS PO PRN (21:11)
[2020-09-03] MEDS: BUPRENORPHINE/NALOXONE 8 MG/2 MG FILM PACKET SL SCH (10:15)
[2020-09-03] MEDS: ESCITALOPRAM OXALATE 10 MG TABLET PO SCH (10:15)
[2020-09-03] MEDS: PRENATAL VITAMINS W/ FOLIC ACID TABLET (FP) PO SCH (10:15)
[2020-09-03] MEDS: hydrOXYzine PAMOATE 25 MG CAPSULE (FP) PO PRN ×2 (10:15→21:42)
[2020-09-03] MEDS: amLODIPine BESYLATE 10 MG TABLET (FP) PO SCH (10:15)
[2020-09-03] MEDS: BISMUTH SUBSALICYLATE 262 MG/15 ML BTL PO SCH (10:17)
[2020-09-03] MEDS: NICOTINE 21 MG/24 HOURS TOPICAL PATCH TD SCH (10:18)
[2020-09-03] MEDS: MELATONIN 5 MG TABLETS PO PRN (21:41)
[2020-09-03] MEDS: THIAMINE HCL 100 MG TABLET (FP) PO SCH (21:41)
[2020-09-04 06:59] VITALS: BP 129/80; PULSE 65; TEMP 97.9
[2020-09-04] MEDS: amLODIPine BESYLATE 10 MG TABLET (FP) PO SCH (09:01)
[2020-09-04] MEDS: BUPRENORPHINE/NALOXONE 8 MG/2 MG FILM PACKET SL SCH (09:01)
[2020-09-04] MEDS: PRENATAL VITAMINS W/ FOLIC ACID TABLET (FP) PO SCH (09:01)
[2020-09-04] MEDS: ESCITALOPRAM OXALATE 10 MG TABLET PO SCH (09:03)
[2020-09-04] MEDS: BISMUTH SUBSALICYLATE 262 MG/15 ML BTL PO SCH (09:03)
[2020-09-04] MEDS: NICOTINE 21 MG/24 HOURS TOPICAL PATCH TD SCH (09:03)
== END 2020-09-04 09:05 | disposition home or self-care (01) | DRG 772 ==
LOC: YASAS 10:54 → Y3W 10:55
PROVIDERS: ADMIT Allergy & Immunology; ATTEND Allergy & Immunology
PROC: HZ42ZZZ Group Counseling for Substance Abuse Treatment, Cognitive-Behavioral (ICD-10-PCS; principal; 2020-08-07)
DX: F11.20 Opioid dependence, uncomplicated (principal); F10.20 Alcohol dependence, uncomplicated; F14.20 Cocaine dependence, uncomplicated; F16.20 Hallucinogen dependence, uncomplicated; F17.210 Nicotine dependence, cigarettes, uncomplicated; F19.24 Other psychoactive substance dependence with psychoactive substance-induced mood disorder; F41.9 Anxiety disorder, unspecified; F32.9 Major depressive disorder, single episode, unspecified; Z21 Asymptomatic human immunodeficiency virus [HIV] infection status; I10 Essential (primary) hypertension; B18.2 Chronic viral hepatitis C; Z86.19 Personal history of other infectious and parasitic diseases; Z51.81 Encounter for therapeutic drug level monitoring; Z79.899 Other long term (current) drug therapy; Z88.0 Allergy status to penicillin; Z59.0 Homelessness; Z56.0 Unemployment, unspecified; Z91.19 Patient's noncompliance with other medical treatment and regimen; R10.9 Unspecified abdominal pain; R11.0 Nausea
CPT/HCPCS: C9803; Q0162; U0003

== ENCOUNTER 2021-08-21 00:48 | Inpatient (IN) | payer OTHER ==
[2021-08-21] MEDS ORDERED: ONDANSETRON *ODT* 4 MG TABLET SL PRN (03:21)
[2021-08-21] MEDS ORDERED: BISMUTH SUBSALICYLATE 524 MG/30 ML PO PRN (03:21)
[2021-08-21] MEDS ORDERED: MAGNESIUM HYDROX 2400MG/30ML ORAL SUSPENSION 30 ML CUP PO PRN (03:21)
[2021-08-21] MEDS ORDERED: MAGNESIUM CITRATE 300 ML BOTTLE PO PRN (03:21)
[2021-08-21] MEDS ORDERED: MAG HYDROX/AL HYDROX/SIMETH 30 ML UNIT-DOSE CUP PO PRN (03:21)
[2021-08-21] MEDS ORDERED: ACETAMINOPHEN 325 MG TABLET (FP) PO PRN ×2 (03:21)
[2021-08-21] MEDS ORDERED: IBUPROFEN 400 MG TABLET (FP) PO PRN (03:21)
[2021-08-21] MEDS ORDERED: MENTHOL/PHENOL 1 EACH UD MM PRN (03:21)
[2021-08-21] MEDS ORDERED: NICOTINE POLACRILEX 2 MG GUM BUC PRN (03:21)
[2021-08-21 05:00] VITALS: BMI 28.5
[2021-08-21] MEDS ORDERED: chlordiazePOXIDE HCL 25 MG CAPSULE PO PRN ×2 (05:12→15:49)
[2021-08-21] MEDS ORDERED: chlordiazePOXIDE HCL 25 MG CAPSULE ONE (06:10)
[2021-08-21] MEDS: chlordiazePOXIDE HCL 25 MG CAPSULE PO SCH ×2 (06:28→11:06)
[2021-08-21] MEDS ORDERED: cloNIDine HCL 0.1 MG TABLET PO PRN (09:40)
[2021-08-21] MEDS ORDERED: BUPRENORPHINE/NALOXONE 8 MG/2 MG FILM PACKET SL SCH ×2 (10:15→11:30)
[2021-08-21 10:42] LABS: HEMATOCRIT 34.5 % (35.4-49); HEMOGLOBIN 11.4 GM/dL (11.7-16.9); MCH 30.1 pg (25.7-33.7); MCHC 33.2 g/dl (32.0-35.9); MEAN CELL VOLUME 90.5 fl (80-96); MEAN PLT VOLUME 7.5 fl (7.5-11.1); PLATELET COUNT 286 10^3/uL (134-434); RBC 3.81 M/mm3 (4.00-5.60); RDW 14.3 % (11.9-15.9)
[2021-08-21 10:47] LABS: CALCIUM 8.5 mg/dL (8.5-10.1)
[2021-08-21 10:48] LABS: ALBUMIN 3.4 g/dl (3.4-5.0); BLOOD UREA NITROGEN 13.5 mg/dL (7-18)
[2021-08-21 10:50] LABS: CREATININE 0.9 mg/dL (0.55-1.3)
[2021-08-21 10:52] LABS: BILIRUBIN,TOTAL 0.4 mg/dL (0.2-1); TOT PROT 6.5 g/dl (6.4-8.2)
[2021-08-21] MEDS: amLODIPine BESYLATE 10 MG TABLET (FP) PO SCH (11:05)
[2021-08-21] MEDS: PRENATAL VITAMINS W/ FOLIC ACID TABLET (FP) PO SCH (11:06)
[2021-08-21] MEDS: NICOTINE 21 MG/24 HOURS TOPICAL PATCH TD SCH (11:07)
[2021-08-21] MEDS ORDERED: BUPRENORPHINE/NALOXONE 8 MG/2 MG FILM PACKET SL ONE (12:30)
[2021-08-21] MEDS: chlordiazePOXIDE HCL 10 MG CAPSULE PO SCH ×2 (17:56→22:22)
[2021-08-21] MEDS: MELATONIN 5 MG TABLETS PO SCH (22:22)
[2021-08-21] MEDS: METHOCARBAMOL 500 MG TABLET PO PRN (22:22)
[2021-08-21] MEDS: THIAMINE HCL 100 MG TABLET (FP) PO SCH (22:22)
[2021-08-22] MEDS ORDERED: chlordiazePOXIDE HCL 25 MG CAPSULE PO SCH (05:00)
[2021-08-22] MEDS: chlordiazePOXIDE HCL 10 MG CAPSULE PO SCH ×4 (05:27→22:33)
[2021-08-22] MEDS: PRENATAL VITAMINS W/ FOLIC ACID TABLET (FP) PO SCH (10:28)
[2021-08-22] MEDS: NICOTINE 21 MG/24 HOURS TOPICAL PATCH TD SCH (10:28)
[2021-08-22] MEDS: BUPRENORPHINE/NALOXONE 8 MG/2 MG FILM PACKET SL SCH (10:29)
[2021-08-22] MEDS: amLODIPine BESYLATE 10 MG TABLET (FP) PO SCH (10:32)
[2021-08-22] MEDS: MELATONIN 5 MG TABLETS PO SCH (22:32)
[2021-08-22] MEDS: THIAMINE HCL 100 MG TABLET (FP) PO SCH (22:32)
[2021-08-23] MEDS ORDERED: chlordiazePOXIDE HCL 10 MG CAPSULE PO PRN
[2021-08-23] MEDS: chlordiazePOXIDE HCL 10 MG CAPSULE PO SCH ×4 (05:58→22:48)
[2021-08-23] MEDS: amLODIPine BESYLATE 10 MG TABLET (FP) PO SCH (10:15)
[2021-08-23] MEDS: PRENATAL VITAMINS W/ FOLIC ACID TABLET (FP) PO SCH (10:15)
[2021-08-23] MEDS: BUPRENORPHINE/NALOXONE 8 MG/2 MG FILM PACKET SL SCH (10:15)
[2021-08-23] MEDS: NICOTINE 21 MG/24 HOURS TOPICAL PATCH TD SCH (10:16)
[2021-08-23] MEDS: MELATONIN 5 MG TABLETS PO SCH (22:48)
[2021-08-23] MEDS: THIAMINE HCL 100 MG TABLET (FP) PO SCH (22:48)
[2021-08-24] MEDS: chlordiazePOXIDE HCL 10 MG CAPSULE PO SCH ×2 (06:36→17:56)
[2021-08-24] MEDS: BUPRENORPHINE/NALOXONE 8 MG/2 MG FILM PACKET SL SCH (10:57)
[2021-08-24] MEDS: amLODIPine BESYLATE 10 MG TABLET (FP) PO SCH (10:57)
[2021-08-24] MEDS: METHOCARBAMOL 500 MG TABLET PO PRN ×2 (10:57→23:03)
[2021-08-24] MEDS: PRENATAL VITAMINS W/ FOLIC ACID TABLET (FP) PO SCH (10:58)
[2021-08-24] MEDS: NICOTINE 21 MG/24 HOURS TOPICAL PATCH TD SCH (10:58)
[2021-08-24] MEDS: MELATONIN 5 MG TABLETS PO SCH (23:02)
[2021-08-24] MEDS: THIAMINE HCL 100 MG TABLET (FP) PO SCH (23:02)
[2021-08-25] MEDS ORDERED: chlordiazePOXIDE HCL 10 MG CAPSULE PO ONE (05:00)
[2021-08-25] MEDS: amLODIPine BESYLATE 10 MG TABLET (FP) PO SCH (10:26)
[2021-08-25] MEDS: PRENATAL VITAMINS W/ FOLIC ACID TABLET (FP) PO SCH (10:26)
[2021-08-25] MEDS: BUPRENORPHINE/NALOXONE 8 MG/2 MG FILM PACKET SL SCH (10:26)
[2021-08-25] MEDS: NICOTINE 21 MG/24 HOURS TOPICAL PATCH TD SCH (10:27)
[2021-08-25] MEDS: MELATONIN 5 MG TABLETS PO SCH (22:47)
[2021-08-25] MEDS: METHOCARBAMOL 500 MG TABLET PO PRN (22:47)
[2021-08-25] MEDS: THIAMINE HCL 100 MG TABLET (FP) PO SCH (22:47)
[2021-08-26 09:03] VITALS: BP 124/76; PULSE 64; TEMP 97.3
[2021-08-26] MEDS: BUPRENORPHINE/NALOXONE 8 MG/2 MG FILM PACKET SL SCH (09:18)
[2021-08-26] MEDS: amLODIPine BESYLATE 10 MG TABLET (FP) PO SCH (09:18)
[2021-08-26] MEDS: PRENATAL VITAMINS W/ FOLIC ACID TABLET (FP) PO SCH (09:18)
[2021-08-26] MEDS: NICOTINE 21 MG/24 HOURS TOPICAL PATCH TD SCH (10:33)
== END 2021-08-26 10:13 | disposition other institution (70) | DRG 773 ==
LOC: YASAS 00:48 → Y3N 06:01
PROVIDERS: ADMIT Allergy & Immunology; ATTEND Allergy & Immunology
PROC: HZ2ZZZZ Detoxification Services for Substance Abuse Treatment (ICD-10-PCS; principal; 2021-08-21)
DX: F10.230 Alcohol dependence with withdrawal, uncomplicated (principal); F11.20 Opioid dependence, uncomplicated; F14.20 Cocaine dependence, uncomplicated; F17.210 Nicotine dependence, cigarettes, uncomplicated; F32.A Depression, unspecified; F41.9 Anxiety disorder, unspecified; I10 Essential (primary) hypertension; M19.90 Unspecified osteoarthritis, unspecified site; G47.00 Insomnia, unspecified; Z86.19 Personal history of other infectious and parasitic diseases; Z51.81 Encounter for therapeutic drug level monitoring; Z79.899 Other long term (current) drug therapy; Z88.0 Allergy status to penicillin; Z56.0 Unemployment, unspecified; Z59.00 Homelessness unspecified
CPT/HCPCS: 36415; 80053; 85027; 86780; 93005; 93010; C9803; U0003; U0005

== ENCOUNTER 2022-01-29 22:11 | Inpatient (IN) | payer OTHER ==
[2022-01-29 22:51] VITALS: BMI 27.3
[2022-01-29] MEDS ORDERED: LOPERAMIDE HCL 2 MG CAPSULE PO PRN (23:16)
[2022-01-29] MEDS ORDERED: MAGNESIUM HYDROX 2400MG/30ML ORAL SUSPENSION 30 ML CUP PO PRN (23:16)
[2022-01-29] MEDS ORDERED: BENZOCAINE/MENTHOL (CHLORASEPTIC ) LOZENGE MM PRN (23:16)
[2022-01-29] MEDS ORDERED: DICYCLOMINE HCL 10 MG CAPSULE PO PRN (23:16)
[2022-01-29] MEDS ORDERED: MAGNESIUM CITRATE 300 ML BOTTLE PO PRN (23:16)
[2022-01-29] MEDS ORDERED: ACETAMINOPHEN 325 MG TABLET (FP) PO PRN ×2 (23:16)
[2022-01-29] MEDS ORDERED: guaiFENesin 200 MG/10 ML 10 ML UNIT-DOSE CUPS PO PRN (23:16)
[2022-01-29] MEDS ORDERED: IBUPROFEN 600 MG TABLET (FP) PO PRN (23:16)
[2022-01-29] MEDS ORDERED: MAG HYDROX/AL HYDROX/SIMETH 30 ML UNIT-DOSE CUP PO PRN (23:16)
[2022-01-29] MEDS ORDERED: IBUPROFEN 400 MG TABLET (FP) PO PRN (23:16)
[2022-01-29] MEDS ORDERED: BISMUTH SUBSALICYLATE 524 MG/30 ML PO PRN (23:16)
[2022-01-29] MEDS ORDERED: P-EPHED 60MG/TRIPROLIDI 2.5MG TABLET PO PRN (23:16)
[2022-01-29] MEDS ORDERED: methaDONE HCL 10 MG TABLET (FOR DETOX USE ONLY) PO ONE (23:19)
[2022-01-30] MEDS: METHOCARBAMOL 500 MG TABLET PO PRN ×2 (00:09→22:43)
[2022-01-30] MEDS: diazePAM 5 MG TABLET PO SCH ×5 (00:10→22:40)
[2022-01-30] MEDS: amLODIPine BESYLATE 5 MG TABLET (FP) PO SCH ×2 (00:10→10:38)
[2022-01-30] MEDS: METHYL SALICYLATE/MENTHOL OINT 30 GM TUBE TP SCH ×3 (00:15→22:41)
[2022-01-30] MEDS: PRENATAL VITAMINS W/ FOLIC ACID TABLET (FP) PO SCH (10:38)
[2022-01-30 14:27] LABS: HEMATOCRIT 33.6 % (35.4-49); HEMOGLOBIN 11.5 GM/dL (11.7-16.9); MCH 30.7 pg (25.7-33.7); MCHC 34.2 g/dl (32.0-35.9); MEAN CELL VOLUME 89.8 fl (80-96); MEAN PLT VOLUME 7.4 fl (7.5-11.1); PLATELET COUNT 291 10^3/uL (134-434); RBC 3.75 M/mm3 (4.00-5.60); RDW 13.4 % (11.9-15.9); WHITE BLOOD COUNT 6.8 K/mm3 (4.0-10.0)
[2022-01-30 14:49] LABS: ALBUMIN 3.3 g/dl (3.4-5.0); CALCIUM 8.7 mg/dL (8.5-10.1)
[2022-01-30 14:50] LABS: BLOOD UREA NITROGEN 16.9 mg/dL (7-18); CREATININE 0.8 mg/dL (0.55-1.3)
[2022-01-30 14:51] LABS: TOT PROT 6.3 g/dl (6.4-8.2)
[2022-01-30 14:52] LABS: BILIRUBIN,TOTAL 0.4 mg/dL (0.2-1)
[2022-01-30] MEDS: cloNIDine HCL 0.1 MG TABLET PO PRN (19:25)
[2022-01-30] MEDS: THIAMINE HCL 100 MG TABLET (FP) PO SCH (22:41)
[2022-01-30] MEDS: hydrOXYzine PAMOATE 25 MG CAPSULE (FP) PO PRN (22:43)
[2022-01-31] MEDS: diazePAM 5 MG TABLET PO PRN ×2 (01:11→18:58)
[2022-01-31] MEDS: diazePAM 5 MG TABLET PO SCH ×3 (05:33→22:28)
[2022-01-31] MEDS ORDERED: methaDONE HCL 10 MG TABLET (FOR DETOX USE ONLY) PO ONE (10:00)
[2022-01-31] MEDS: amLODIPine BESYLATE 5 MG TABLET (FP) PO SCH (10:38)
[2022-01-31] MEDS: METHYL SALICYLATE/MENTHOL OINT 30 GM TUBE TP SCH ×2 (10:38→22:28)
[2022-01-31] MEDS: PRENATAL VITAMINS W/ FOLIC ACID TABLET (FP) PO SCH (10:38)
[2022-01-31] MEDS: ESCITALOPRAM OXALATE 10 MG TABLET PO SCH (10:38)
[2022-01-31] MEDS: ONDANSETRON *ODT* 4 MG TABLET SL PRN (10:39)
[2022-01-31] MEDS: cloNIDine HCL 0.1 MG TABLET PO PRN (18:58)
[2022-01-31] MEDS: METHOCARBAMOL 500 MG TABLET PO PRN (18:58)
[2022-01-31] MEDS: THIAMINE HCL 100 MG TABLET (FP) PO SCH (22:27)
[2022-01-31] MEDS: MELATONIN 5 MG TABLETS PO PRN (22:27)
[2022-02-01] MEDS: diazePAM 5 MG TABLET PO SCH ×2 (05:08→18:04)
[2022-02-01] MEDS ORDERED: methaDONE HCL 10 MG TABLET (FOR DETOX USE ONLY) PO ONE (10:00)
[2022-02-01] MEDS: PRENATAL VITAMINS W/ FOLIC ACID TABLET (FP) PO SCH (10:26)
[2022-02-01] MEDS: ESCITALOPRAM OXALATE 10 MG TABLET PO SCH (10:26)
[2022-02-01] MEDS: amLODIPine BESYLATE 5 MG TABLET (FP) PO SCH (10:26)
[2022-02-01] MEDS: METHYL SALICYLATE/MENTHOL OINT 30 GM TUBE TP SCH ×2 (10:28→22:25)
[2022-02-01] MEDS: METHOCARBAMOL 500 MG TABLET PO PRN (18:04)
[2022-02-01] MEDS: hydrOXYzine PAMOATE 25 MG CAPSULE (FP) PO PRN (18:04)
[2022-02-01] MEDS: ONDANSETRON *ODT* 4 MG TABLET SL PRN (18:05)
[2022-02-01] MEDS: MELATONIN 5 MG TABLETS PO PRN (22:25)
[2022-02-01] MEDS: THIAMINE HCL 100 MG TABLET (FP) PO SCH (22:25)
[2022-02-01] MEDS: diazePAM 5 MG TABLET PO PRN (22:25)
[2022-02-02] MEDS ORDERED: diazePAM 5 MG TABLET PO ONE (06:00)
[2022-02-02] MEDS: ESCITALOPRAM OXALATE 10 MG TABLET PO SCH (10:35)
[2022-02-02] MEDS: PRENATAL VITAMINS W/ FOLIC ACID TABLET (FP) PO SCH (10:35)
[2022-02-02] MEDS: amLODIPine BESYLATE 5 MG TABLET (FP) PO SCH (10:36)
[2022-02-02] MEDS: METHYL SALICYLATE/MENTHOL OINT 30 GM TUBE TP SCH (10:36)
[2022-02-02 15:32] VITALS: BP 160/95; PULSE 95; TEMP 97.8
== END 2022-02-02 16:37 | disposition home or self-care (01) | DRG 773 ==
LOC: YASAS 22:11 → Y3N 23:43
PROVIDERS: ADMIT Allergy & Immunology; ATTEND Surgery
PROC: HZ2ZZZZ Detoxification Services for Substance Abuse Treatment (ICD-10-PCS; principal; 2022-01-29)
DX: F11.23 Opioid dependence with withdrawal (principal); F10.230 Alcohol dependence with withdrawal, uncomplicated; F14.20 Cocaine dependence, uncomplicated; F16.20 Hallucinogen dependence, uncomplicated; F17.210 Nicotine dependence, cigarettes, uncomplicated; F19.24 Other psychoactive substance dependence with psychoactive substance-induced mood disorder; M17.11 Unilateral primary osteoarthritis, right knee; Z86.19 Personal history of other infectious and parasitic diseases; Z56.0 Unemployment, unspecified; Z59.00 Homelessness unspecified; Z88.0 Allergy status to penicillin
CPT/HCPCS: 36415; 80053; 85027; 86780; C9803-CS; J0735; Q0162; U0003; U0005

== ENCOUNTER 2022-04-18 15:22 | Inpatient (IN) | payer OTHER ==
[2022-04-18 18:56] VITALS: BMI 30.4
[2022-04-18] MEDS ORDERED: NALOXONE HCL (KLOXXADO) 8 MG SPRAY NS PRN (19:46)
[2022-04-18] MEDS ORDERED: IBUPROFEN 400 MG TABLET (FP) PO PRN (19:46)
[2022-04-18] MEDS ORDERED: MAGNESIUM HYDROX 2400MG/30ML ORAL SUSPENSION 30 ML CUP PO PRN (19:46)
[2022-04-18] MEDS ORDERED: MAGNESIUM CITRATE 300 ML BOTTLE PO PRN (19:46)
[2022-04-18] MEDS ORDERED: NICOTINE 10 MG CARTRIDGE (INHALER) IH PRN (19:46)
[2022-04-18] MEDS ORDERED: ACETAMINOPHEN 325 MG TABLET (FP) PO PRN ×2 (19:46)
[2022-04-18] MEDS ORDERED: LOPERAMIDE HCL 2 MG CAPSULE PO PRN (19:46)
[2022-04-18] MEDS ORDERED: IBUPROFEN 600 MG TABLET (FP) PO PRN (19:46)
[2022-04-18] MEDS ORDERED: DICYCLOMINE HCL 10 MG CAPSULE PO PRN (19:46)
[2022-04-18] MEDS ORDERED: MAG HYDROX/AL HYDROX/SIMETH 30 ML UNIT-DOSE CUP PO PRN (19:46)
[2022-04-18] MEDS ORDERED: BENZOCAINE/MENTHOL (CHLORASEPTIC ) LOZENGE MM PRN (19:46)
[2022-04-18] MEDS ORDERED: ONDANSETRON *ODT* 4 MG TABLET SL PRN (19:46)
[2022-04-18] MEDS ORDERED: BISMUTH SUBSALICYLATE 524 MG/30 ML PO PRN (19:46)
[2022-04-18] MEDS: PRENATAL VITAMINS W/ FOLIC ACID TABLET (FP) PO SCH (22:05)
[2022-04-18] MEDS: hydrOXYzine PAMOATE 25 MG CAPSULE (FP) PO SCH (22:05)
[2022-04-18] MEDS: amLODIPine BESYLATE 5 MG TABLET (FP) PO SCH (22:05)
[2022-04-18] MEDS: METHOCARBAMOL 500 MG TABLET PO PRN (22:05)
[2022-04-18] MEDS: MELATONIN 5 MG TABLETS PO SCH (22:05)
[2022-04-18] MEDS: THIAMINE HCL 100 MG TABLET (FP) PO SCH (22:07)
[2022-04-19] MEDS: hydrOXYzine PAMOATE 25 MG CAPSULE (FP) PO SCH ×3 (05:54→12:33)
[2022-04-19] MEDS: METHOCARBAMOL 500 MG TABLET PO PRN (06:11)
[2022-04-19] MEDS ORDERED: cloNIDine HCL 0.1 MG TABLET PO ONE (06:30)
[2022-04-19] MEDS ORDERED: methaDONE HCL 10 MG TABLET (FOR DETOX USE ONLY) PO ONE (10:13)
[2022-04-19] MEDS ORDERED: chlordiazePOXIDE HCL 25 MG CAPSULE PO PRN (10:13)
[2022-04-19] MEDS ORDERED: cloNIDine HCL 0.1 MG TABLET PO PRN (10:13)
[2022-04-19] MEDS: PRENATAL VITAMINS W/ FOLIC ACID TABLET (FP) PO SCH (10:16)
[2022-04-19] MEDS: ESCITALOPRAM OXALATE 10 MG TABLET PO SCH (10:16)
[2022-04-19] MEDS: amLODIPine BESYLATE 5 MG TABLET (FP) PO SCH (10:16)
[2022-04-19] MEDS: chlordiazePOXIDE HCL 25 MG CAPSULE PO SCH ×4 (10:44→22:50)
[2022-04-19 11:31] LABS: HEMATOCRIT 37.1 % (35.4-49); HEMOGLOBIN 12.6 GM/dL (11.7-16.9); MCH 29.9 pg (25.7-33.7); MCHC 33.9 g/dl (32.0-35.9); MEAN CELL VOLUME 88.2 fl (80-96); MEAN PLT VOLUME 7.4 fl (7.5-11.1); PLATELET COUNT 292 10^3/uL (134-434); RBC 4.21 M/mm3 (4.00-5.60); RDW 13.3 % (11.9-15.9); WHITE BLOOD COUNT 7.8 K/mm3 (4.0-10.0)
[2022-04-19 11:34] LABS: BLOOD UREA NITROGEN 10.2 mg/dL (7-18); CALCIUM 9.1 mg/dL (8.5-10.1)
[2022-04-19 11:35] LABS: ALBUMIN 3.4 g/dl (3.4-5.0)
[2022-04-19 11:37] LABS: CREATININE 0.8 mg/dL (0.55-1.3)
[2022-04-19 11:39] LABS: BILIRUBIN,TOTAL 0.5 mg/dL (0.2-1); TOT PROT 6.7 g/dl (6.4-8.2)
[2022-04-19] MEDS: THIAMINE HCL 100 MG TABLET (FP) PO SCH (22:50)
[2022-04-19] MEDS: MELATONIN 5 MG TABLETS PO SCH (22:50)
[2022-04-20] MEDS: chlordiazePOXIDE HCL 25 MG CAPSULE PO SCH ×4 (06:18→22:54)
[2022-04-20] MEDS: LISINOPRIL 5 MG TABLET PO SCH (10:32)
[2022-04-20] MEDS: ESCITALOPRAM OXALATE 10 MG TABLET PO SCH (10:32)
[2022-04-20] MEDS: amLODIPine BESYLATE 5 MG TABLET (FP) PO SCH (10:32)
[2022-04-20] MEDS: PRENATAL VITAMINS W/ FOLIC ACID TABLET (FP) PO SCH (10:32)
[2022-04-20] MEDS: MELATONIN 5 MG TABLETS PO SCH (22:55)
[2022-04-20] MEDS: THIAMINE HCL 100 MG TABLET (FP) PO SCH (22:55)
[2022-04-21] MEDS: chlordiazePOXIDE HCL 25 MG CAPSULE PO SCH ×4 (06:06→23:52)
[2022-04-21] MEDS ORDERED: methaDONE HCL 10 MG TABLET (FOR DETOX USE ONLY) PO ONE (10:00)
[2022-04-21] MEDS: PRENATAL VITAMINS W/ FOLIC ACID TABLET (FP) PO SCH (11:08)
[2022-04-21] MEDS: ESCITALOPRAM OXALATE 10 MG TABLET PO SCH (11:09)
[2022-04-21] MEDS: amLODIPine BESYLATE 5 MG TABLET (FP) PO SCH (11:09)
[2022-04-21] MEDS: LISINOPRIL 5 MG TABLET PO SCH (11:09)
[2022-04-21] MEDS: METHOCARBAMOL 500 MG TABLET PO PRN (11:11)
[2022-04-21] MEDS: THIAMINE HCL 100 MG TABLET (FP) PO SCH (23:18)
[2022-04-21] MEDS: MELATONIN 5 MG TABLETS PO SCH (23:18)
[2022-04-22] MEDS ORDERED: chlordiazePOXIDE HCL 10 MG CAPSULE PO PRN
[2022-04-22] MEDS: chlordiazePOXIDE HCL 10 MG CAPSULE PO SCH ×4 (06:27→22:42)
[2022-04-22] MEDS: amLODIPine BESYLATE 5 MG TABLET (FP) PO SCH (10:00)
[2022-04-22] MEDS: PRENATAL VITAMINS W/ FOLIC ACID TABLET (FP) PO SCH (10:33)
[2022-04-22] MEDS: ESCITALOPRAM OXALATE 10 MG TABLET PO SCH (10:34)
[2022-04-22] MEDS: LISINOPRIL 5 MG TABLET PO SCH (10:38)
[2022-04-22] MEDS: THIAMINE HCL 100 MG TABLET (FP) PO SCH (22:19)
[2022-04-22] MEDS: MELATONIN 5 MG TABLETS PO SCH (22:19)
[2022-04-23] MEDS: chlordiazePOXIDE HCL 10 MG CAPSULE PO SCH ×2 (06:01→17:56)
[2022-04-23] MEDS ORDERED: methaDONE HCL 10 MG TABLET (FOR DETOX USE ONLY) PO ONE (10:00)
[2022-04-23] MEDS: amLODIPine BESYLATE 5 MG TABLET (FP) PO SCH (11:16)
[2022-04-23] MEDS: ESCITALOPRAM OXALATE 10 MG TABLET PO SCH (11:16)
[2022-04-23] MEDS: PRENATAL VITAMINS W/ FOLIC ACID TABLET (FP) PO SCH (11:16)
[2022-04-23] MEDS: LISINOPRIL 5 MG TABLET PO SCH (11:20)
[2022-04-23 18:39] VITALS: RESP 18
[2022-04-23] MEDS: THIAMINE HCL 100 MG TABLET (FP) PO SCH (21:59)
[2022-04-23] MEDS: MELATONIN 5 MG TABLETS PO SCH (22:00)
[2022-04-24] MEDS ORDERED: chlordiazePOXIDE HCL 10 MG CAPSULE PO ONE (05:00)
[2022-04-24 07:28] VITALS: TEMP 97.5
[2022-04-24 09:48] VITALS: BP 151/79; PULSE 91
[2022-04-24] MEDS: ESCITALOPRAM OXALATE 10 MG TABLET PO SCH (11:46)
[2022-04-24] MEDS: amLODIPine BESYLATE 5 MG TABLET (FP) PO SCH (11:47)
[2022-04-24] MEDS: PRENATAL VITAMINS W/ FOLIC ACID TABLET (FP) PO SCH (11:47)
[2022-04-24] MEDS: LISINOPRIL 5 MG TABLET PO SCH (11:47)
== END 2022-04-24 15:26 | disposition other institution (70) | DRG 773 ==
LOC: YASAS 15:22 → Y6N 20:17
PROVIDERS: ADMIT Allergy & Immunology; ATTEND Surgery
PROC: HZ2ZZZZ Detoxification Services for Substance Abuse Treatment (ICD-10-PCS; principal; 2022-04-18)
DX: F11.23 Opioid dependence with withdrawal (principal); F10.230 Alcohol dependence with withdrawal, uncomplicated; F14.20 Cocaine dependence, uncomplicated; F16.20 Hallucinogen dependence, uncomplicated; F12.20 Cannabis dependence, uncomplicated; F17.210 Nicotine dependence, cigarettes, uncomplicated; F19.24 Other psychoactive substance dependence with psychoactive substance-induced mood disorder; F31.9 Bipolar disorder, unspecified; F41.9 Anxiety disorder, unspecified; Z21 Asymptomatic human immunodeficiency virus [HIV] infection status; I10 Essential (primary) hypertension; Z86.19 Personal history of other infectious and parasitic diseases; Z56.0 Unemployment, unspecified; Z59.00 Homelessness unspecified; Z88.0 Allergy status to penicillin
CPT/HCPCS: 36415; 80053; 85027; 86780; C9803-CS; Q0162; U0003; U0005

== ENCOUNTER 2022-04-24 15:24 | Inpatient (IN) | payer OTHER ==
[2022-04-24 15:39] VITALS: TEMP 97.5
[2022-04-24] MEDS ORDERED: P-EPHED 60MG/TRIPROLIDI 2.5MG TABLET PO PRN (15:58)
[2022-04-24] MEDS ORDERED: BENZOCAINE/MENTHOL (CHLORASEPTIC ) LOZENGE MM PRN (15:58)
[2022-04-24] MEDS ORDERED: MAG HYDROX/AL HYDROX/SIMETH 30 ML UNIT-DOSE CUP PO PRN (15:58)
[2022-04-24] MEDS ORDERED: NICOTINE 10 MG CARTRIDGE (INHALER) IH PRN (15:58)
[2022-04-24] MEDS ORDERED: IBUPROFEN 400 MG TABLET (FP) PO PRN (15:58)
[2022-04-24] MEDS ORDERED: MAGNESIUM CITRATE 300 ML BOTTLE PO PRN (15:58)
[2022-04-24] MEDS ORDERED: LOPERAMIDE HCL 2 MG CAPSULE PO PRN (15:58)
[2022-04-24] MEDS ORDERED: MAGNESIUM HYDROX 2400MG/30ML ORAL SUSPENSION 30 ML CUP PO PRN (15:58)
[2022-04-24] MEDS ORDERED: guaiFENesin 200 MG/10 ML 10 ML UNIT-DOSE CUPS PO PRN (15:58)
[2022-04-24] MEDS ORDERED: ACETAMINOPHEN 325 MG TABLET (FP) PO PRN (15:58)
[2022-04-24] MEDS: THIAMINE HCL 100 MG TABLET (FP) PO SCH (21:28)
[2022-04-24] MEDS: MELATONIN 5 MG TABLETS PO SCH (21:28)
[2022-04-25] MEDS: amLODIPine BESYLATE 10 MG TABLET (FP) PO SCH (11:00)
[2022-04-25] MEDS: NICOTINE 7 MG/24 HOURS TOPICAL PATCH TD SCH (11:00)
[2022-04-25] MEDS: ESCITALOPRAM OXALATE 10 MG TABLET PO SCH (11:00)
[2022-04-25] MEDS: PRENATAL VITAMINS W/ FOLIC ACID TABLET (FP) PO SCH (11:00)
[2022-04-25] MEDS ORDERED: PNEUMOC 20-VAL CONJ-DIP CRM/PF 0.5 ML SYRINGE IM ONE (12:00)
[2022-04-25] MEDS ORDERED: FLU VACC QS2022-23(6MOS UP)/PF 60 MCG/0.5 ML SYRINGE IM ONE (12:00)
[2022-04-25] MEDS: MELATONIN 5 MG TABLETS PO SCH (21:23)
[2022-04-25] MEDS: hydrOXYzine PAMOATE 25 MG CAPSULE (FP) PO PRN (21:23)
[2022-04-25] MEDS: THIAMINE HCL 100 MG TABLET (FP) PO SCH (21:23)
[2022-04-26] MEDS: NICOTINE 7 MG/24 HOURS TOPICAL PATCH TD SCH (10:12)
[2022-04-26] MEDS: ESCITALOPRAM OXALATE 10 MG TABLET PO SCH (10:13)
[2022-04-26] MEDS: PRENATAL VITAMINS W/ FOLIC ACID TABLET (FP) PO SCH (10:13)
[2022-04-26] MEDS: amLODIPine BESYLATE 10 MG TABLET (FP) PO SCH (10:13)
[2022-04-26] MEDS: MELATONIN 5 MG TABLETS PO SCH (21:38)
[2022-04-26] MEDS: hydrOXYzine PAMOATE 25 MG CAPSULE (FP) PO PRN (21:38)
[2022-04-26] MEDS: THIAMINE HCL 100 MG TABLET (FP) PO SCH (21:38)
[2022-04-27 07:16] VITALS: RESP 18
[2022-04-27 09:11] VITALS: BP 145/92; PULSE 109
[2022-04-27] MEDS: PRENATAL VITAMINS W/ FOLIC ACID TABLET (FP) PO SCH (09:11)
[2022-04-27] MEDS: ESCITALOPRAM OXALATE 10 MG TABLET PO SCH (09:11)
[2022-04-27] MEDS: amLODIPine BESYLATE 10 MG TABLET (FP) PO SCH (09:11)
[2022-04-27] MEDS: NICOTINE 7 MG/24 HOURS TOPICAL PATCH TD SCH (09:12)
== END 2022-04-27 05:05 | disposition left against medical advice (07) | DRG 770 ==
LOC: YASAS 15:24 → Y3E 15:27
PROVIDERS: ADMIT Allergy & Immunology; ATTEND Psychiatry & Neurology Pain Medicine
PROC: HZ2ZZZZ Detoxification Services for Substance Abuse Treatment (ICD-10-PCS; principal; 2022-04-24)
DX: F11.20 Opioid dependence, uncomplicated (principal); F14.20 Cocaine dependence, uncomplicated; F16.20 Hallucinogen dependence, uncomplicated; F10.20 Alcohol dependence, uncomplicated; F12.20 Cannabis dependence, uncomplicated; F17.210 Nicotine dependence, cigarettes, uncomplicated; F41.9 Anxiety disorder, unspecified; Z21 Asymptomatic human immunodeficiency virus [HIV] infection status; I10 Essential (primary) hypertension; D57.3 Sickle-cell trait; Z86.19 Personal history of other infectious and parasitic diseases; Z88.0 Allergy status to penicillin

== ENCOUNTER 2023-10-28 21:15 | Inpatient (IN) | payer OTHER ==
[2023-10-28 22:03] VITALS: BMI 24.1
[2023-10-28] MEDS ORDERED: NALOXONE HCL (KLOXXADO) 8 MG SPRAY NS PRN (22:44)
[2023-10-28] MEDS ORDERED: IBUPROFEN 400 MG TABLET (FP) PO PRN (22:44)
[2023-10-28] MEDS ORDERED: guaiFENesin 600 MG TABLET.ER (FP) PO PRN (22:44)
[2023-10-28] MEDS ORDERED: NICOTINE POLACRILEX 2 MG GUM BUC PRN (22:44)
[2023-10-28] MEDS ORDERED: LOPERAMIDE HCL 2 MG CAPSULE PO PRN (22:44)
[2023-10-28] MEDS ORDERED: NALOXONE HCL 0.4 MG/ML VIAL IM PRN (22:44)
[2023-10-28] MEDS ORDERED: MAG HYDROX/AL HYDROX/SIMETH 30 ML UNIT-DOSE CUP PO PRN (22:44)
[2023-10-28] MEDS ORDERED: POLYETHYLENE GLYCOL (HEALTHYLAX) 3350 17 GM PACKET PO PRN (22:44)
[2023-10-28] MEDS ORDERED: BISMUTH SUBSALICYLATE 524 MG/30 ML PO PRN (22:44)
[2023-10-28] MEDS ORDERED: BENZOCAINE/MENTHOL (CHLORASEPTIC ) LOZENGE MM PRN (22:44)
[2023-10-28] MEDS ORDERED: IBUPROFEN 600 MG TABLET (FP) PO PRN (22:44)
[2023-10-28] MEDS ORDERED: MAGNESIUM HYDROX 2400MG/30ML ORAL SUSPENSION 30 ML CUP PO PRN (22:44)
[2023-10-28] MEDS ORDERED: ACETAMINOPHEN 325 MG TABLET (FP) PO PRN (22:44)
[2023-10-28] MEDS ORDERED: DICYCLOMINE HCL 10 MG CAPSULE PO PRN (22:44)
[2023-10-28] MEDS ORDERED: BENZONATATE 200 MG CAPSULE PO PRN (22:44)
[2023-10-28] MEDS ORDERED: methaDONE HCL 10 MG TABLET (FOR DETOX USE ONLY) ONE ×2 (23:19→23:23)
[2023-10-28] MEDS: methaDONE HCL 10 MG TABLET (FOR DETOX USE ONLY) PO ONE (23:28)
[2023-10-28] MEDS: METHOCARBAMOL 500 MG TABLET PO PRN (23:46)
[2023-10-28] MEDS: cloNIDine HCL 0.1 MG TABLET PO PRN (23:46)
[2023-10-29] MEDS: methaDONE HCL 10 MG TABLET (FOR DETOX USE ONLY) PO ONE (09:58)
[2023-10-29] MEDS: PRENATAL VITAMINS W/ FOLIC ACID TABLET (FP) PO SCH (09:58)
[2023-10-29 11:47] LABS: HEMATOCRIT 40.2 % (35.4-49); HEMOGLOBIN 13.5 GM/dL (11.7-16.9); MCH 30.1 pg (25.7-33.7); MCHC 33.6 g/dl (32.0-35.9); MEAN CELL VOLUME 89.6 fl (80-96); MEAN PLT VOLUME 7.7 fl (7.5-11.1); PLATELET COUNT 296 10^3/uL (134-434); RBC 4.49 M/mm3 (4.00-5.60); RDW 13.6 % (11.9-15.9); WHITE BLOOD COUNT 11.1 K/mm3 (4.0-10.0)
[2023-10-29 11:50] LABS: POTASSIUM 4.1 mmol/L (3.5-5.1)
[2023-10-29 11:56] LABS: CALCIUM 8.5 mg/dL (8.5-10.1)
[2023-10-29 11:59] LABS: ALBUMIN 3.4 g/dl (3.4-5.0); BLOOD UREA NITROGEN 14.1 mg/dL (7-18); CREATININE 1.1 mg/dL (0.55-1.3)
[2023-10-29 12:01] LABS: BILIRUBIN,TOTAL 0.4 mg/dL (0.2-1); TOT PROT 6.5 g/dl (6.4-8.2)
[2023-10-29] MEDS: amLODIPine BESYLATE 10 MG TABLET (FP) PO SCH (15:13)
[2023-10-29] MEDS: LEVOTHYROXINE NA 25 MCG TABLET (FP) PO SCH (15:14)
[2023-10-29] MEDS: MELATONIN 5 MG TABLETS PO SCH (21:05)
[2023-10-29] MEDS: THIAMINE HCL 100 MG TABLET (FP) PO SCH (21:05)
[2023-10-30] MEDS: methaDONE HCL 10 MG TABLET (FOR DETOX USE ONLY) PO ONE (10:11)
[2023-10-31] MEDS: methaDONE HCL 10 MG TABLET (FOR DETOX USE ONLY) PO ONE (05:40)
[2023-10-31 09:50] VITALS: BP 143/90; PULSE 81; RESP 20; TEMP 98
== END 2023-10-31 12:25 | disposition home or self-care (01) | DRG 773 ==
LOC: YASAS 21:15 → Y3N 22:50
PROVIDERS: ADMIT Allergy & Immunology; ATTEND Surgery
PROC: HZ2ZZZZ Detoxification Services for Substance Abuse Treatment (ICD-10-PCS; principal; 2023-10-28)
DX: F11.23 Opioid dependence with withdrawal (principal); F14.20 Cocaine dependence, uncomplicated; F17.210 Nicotine dependence, cigarettes, uncomplicated; F19.24 Other psychoactive substance dependence with psychoactive substance-induced mood disorder; F31.9 Bipolar disorder, unspecified; F41.9 Anxiety disorder, unspecified; I10 Essential (primary) hypertension; E03.9 Hypothyroidism, unspecified; Z86.19 Personal history of other infectious and parasitic diseases; Z56.0 Unemployment, unspecified; Z59.00 Homelessness unspecified; Z88.0 Allergy status to penicillin
CPT/HCPCS: 36415; 80053; 80305; 85027; 86780; 93005; 93010

== ENCOUNTER 2023-12-30 12:11 | Inpatient (IN) | payer OTHER ==
[2023-12-30 13:09] VITALS: BMI 26.4
[2023-12-30] MEDS ORDERED: NALOXONE HCL 0.4 MG/ML VIAL IM PRN (13:47)
[2023-12-30] MEDS ORDERED: ACETAMINOPHEN 325 MG TABLET (FP) PO PRN (13:47)
[2023-12-30] MEDS ORDERED: POLYETHYLENE GLYCOL (HEALTHYLAX) 3350 17 GM PACKET PO PRN (13:47)
[2023-12-30] MEDS ORDERED: BENZOCAINE/MENTHOL (CHLORASEPTIC ) LOZENGE MM PRN (13:47)
[2023-12-30] MEDS ORDERED: IBUPROFEN 400 MG TABLET (FP) PO PRN (13:47)
[2023-12-30] MEDS ORDERED: BENZONATATE 200 MG CAPSULE PO PRN (13:47)
[2023-12-30] MEDS ORDERED: IBUPROFEN 600 MG TABLET (FP) PO PRN (13:47)
[2023-12-30] MEDS ORDERED: LOPERAMIDE HCL 2 MG CAPSULE PO PRN (13:47)
[2023-12-30] MEDS ORDERED: DICYCLOMINE HCL 10 MG CAPSULE PO PRN (13:47)
[2023-12-30] MEDS ORDERED: BISMUTH SUBSALICYLATE 524 MG/30 ML PO PRN (13:47)
[2023-12-30] MEDS ORDERED: guaiFENesin 600 MG TABLET.ER (FP) PO PRN (13:47)
[2023-12-30] MEDS ORDERED: MAGNESIUM HYDROX 2400MG/30ML ORAL SUSPENSION 30 ML CUP PO PRN (13:47)
[2023-12-30] MEDS ORDERED: ONDANSETRON *ODT* 4 MG TABLET SL PRN (13:47)
[2023-12-30] MEDS ORDERED: NALOXONE (NARCAN) HCL 4 MG/0.1 ML SPRAY NS PRN (13:47)
[2023-12-30] MEDS ORDERED: methaDONE HCL 10 MG TABLET ONE (15:03)
[2023-12-30] MEDS ORDERED: cloNIDine HCL 0.1 MG TABLET ONE (15:03)
[2023-12-30] MEDS: methaDONE HCL 10 MG TABLET (FOR DETOX USE ONLY) PO ONE (15:07)
[2023-12-30] MEDS: cloNIDine HCL 0.1 MG TABLET PO SCH (15:08)
[2023-12-30] MEDS ORDERED: BUPRENORPHINE/NALOXONE 0.5 MG/0.125 MG FILM ONE (15:12)
[2023-12-30] MEDS ORDERED: NICOTINE 14 MG/24 HOURS TOPICAL PATCH TD ONE (15:13)
[2023-12-30] MEDS: BUPRENORPHINE/NALOXONE 0.5 MG/0.125 MG FILM SL ONE ×2 (15:17→23:21)
[2023-12-30] MEDS: NICOTINE 14 MG/24 HOURS TOPICAL PATCH TD SCH (15:18)
[2023-12-30] MEDS: ACAMPROSATE CALCIUM 333 MG TABLET.DR PO SCH (15:56)
[2023-12-30] MEDS: PRENATAL VITAMINS W/ FOLIC ACID TABLET (FP) PO SCH (15:56)
[2023-12-30] MEDS: THIAMINE 100 MG TABLET PO SCH (23:17)
[2023-12-30] MEDS: MELATONIN 5 MG TABLETS PO SCH (23:17)
[2023-12-31] MEDS: LEVOTHYROXINE NA 25 MCG TABLET (FP) PO SCH (06:01)
[2023-12-31] MEDS: TAMSULOSIN HCL 0.4 MG CAP PO SCH (09:19)
[2023-12-31] MEDS: amLODIPine BESYLATE 10 MG TABLET (FP) PO SCH (09:23)
[2023-12-31] MEDS: BUPRENORPHINE/NALOXONE 0.5 MG/0.125 MG FILM SL SCH (09:24)
[2023-12-31 10:51] LABS: POTASSIUM 4.4 mmol/L (3.5-5.1)
[2023-12-31 10:58] LABS: HEMATOCRIT 30.6 % (35.4-49); HEMOGLOBIN 10.6 GM/dL (11.7-16.9); MCH 31.2 pg (25.7-33.7); MCHC 34.6 g/dl (32.0-35.9); MEAN CELL VOLUME 90.2 fl (80-96); MEAN PLT VOLUME 7.4 fl (7.5-11.1); PLATELET COUNT 251 10^3/uL (134-434); RBC 3.39 M/mm3 (4.00-5.60); RDW 13.6 % (11.9-15.9); WHITE BLOOD COUNT 7.9 K/mm3 (4.0-10.0)
[2023-12-31 11:01] LABS: ALBUMIN 2.9 g/dl (3.4-5.0); CALCIUM 8.1 mg/dL (8.5-10.1)
[2023-12-31 11:04] LABS: CREATININE 0.8 mg/dL (0.55-1.3)
[2023-12-31 11:06] LABS: BILIRUBIN,TOTAL 0.6 mg/dL (0.2-1); TOT PROT 5.7 g/dl (6.4-8.2)
[2023-12-31] MEDS: METHOCARBAMOL 500 MG TABLET PO PRN (22:38)
[2024-01-01] MEDS: methaDONE HCL 10 MG TABLET (FOR DETOX USE ONLY) PO ONE (09:21)
[2024-01-01] MEDS: BUPRENORPHINE/NALOXONE 2 MG/0.5 MG FILM PACKET SL SCH (09:21)
[2024-01-01] MEDS: MAG HYDROX/AL HYDROX/SIMETH 30 ML UNIT-DOSE CUP PO PRN (19:35)
[2024-01-02] MEDS: BUPRENORPHINE/NALOXONE 4 MG/1 MG FILM PACKET SL SCH (09:28)
[2024-01-02] MEDS: hydrOXYzine PAMOATE 25 MG CAPSULE (FP) PO PRN (22:42)
[2024-01-03] MEDS: BUPRENORPHINE/NALOXONE 8 MG/2 MG FILM PACKET SL SCH (09:43)
[2024-01-03] MEDS: methaDONE HCL 10 MG TABLET (FOR DETOX USE ONLY) PO ONE (09:44)
[2024-01-04] MEDS: BUPRENORPHINE/NALOXONE 8 MG/2 MG FILM PACKET SL SCH (09:22)
[2024-01-05 09:24] VITALS: RESP 16
[2024-01-05 12:20] VITALS: BP 115/73; PULSE 79; TEMP 97.7
== END 2024-01-05 12:51 | disposition other institution (70) | DRG 773 ==
LOC: YASAS 12:11 → Y3N 14:21
PROVIDERS: ADMIT Allergy & Immunology; ATTEND Surgery
PROC: HZ2ZZZZ Detoxification Services for Substance Abuse Treatment (ICD-10-PCS; principal; 2023-12-30)
DX: F11.23 Opioid dependence with withdrawal (principal); F14.20 Cocaine dependence, uncomplicated; F16.20 Hallucinogen dependence, uncomplicated; F17.210 Nicotine dependence, cigarettes, uncomplicated; F19.24 Other psychoactive substance dependence with psychoactive substance-induced mood disorder; Z21 Asymptomatic human immunodeficiency virus [HIV] infection status; E03.9 Hypothyroidism, unspecified; I10 Essential (primary) hypertension; D57.3 Sickle-cell trait; M17.0 Bilateral primary osteoarthritis of knee; N40.0 Benign prostatic hyperplasia without lower urinary tract symptoms; Z59.02 Unsheltered homelessness; Z56.0 Unemployment, unspecified; Z88.0 Allergy status to penicillin
CPT/HCPCS: 36415; 80053; 80305; 85027; 86780; 87811; 93005; 93010

== ENCOUNTER 2024-01-05 12:55 | Inpatient (IN) | payer OTHER ==
[2024-01-05] MEDS ORDERED: METHOCARBAMOL 500 MG TABLET PO PRN (15:01)
[2024-01-05] MEDS ORDERED: BENZOCAINE/MENTHOL (CHLORASEPTIC ) LOZENGE MM PRN (15:01)
[2024-01-05] MEDS ORDERED: NALOXONE (NARCAN) HCL 4 MG/0.1 ML SPRAY NS PRN (15:01)
[2024-01-05] MEDS ORDERED: MAGNESIUM HYDROX 2400MG/30ML ORAL SUSPENSION 30 ML CUP PO PRN (15:01)
[2024-01-05] MEDS ORDERED: guaiFENesin 600 MG TABLET.ER (FP) PO PRN (15:01)
[2024-01-05] MEDS ORDERED: IBUPROFEN 600 MG TABLET (FP) PO PRN (15:01)
[2024-01-05] MEDS ORDERED: MAG HYDROX/AL HYDROX/SIMETH 30 ML UNIT-DOSE CUP PO PRN (15:01)
[2024-01-05] MEDS ORDERED: IBUPROFEN 400 MG TABLET (FP) PO PRN (15:01)
[2024-01-05] MEDS ORDERED: NALOXONE HCL 0.4 MG/ML VIAL IVPUSH PRN (15:01)
[2024-01-05] MEDS ORDERED: POLYETHYLENE GLYCOL (HEALTHYLAX) 3350 17 GM PACKET PO PRN (15:01)
[2024-01-05] MEDS ORDERED: ACETAMINOPHEN 325 MG TABLET (FP) PO PRN (15:01)
[2024-01-05] MEDS ORDERED: BENZONATATE 200 MG CAPSULE PO PRN (15:01)
[2024-01-05] MEDS ORDERED: LOPERAMIDE HCL 2 MG CAPSULE PO PRN (15:01)
[2024-01-05] MEDS: THIAMINE 100 MG TABLET PO SCH (21:06)
[2024-01-05] MEDS: BUPRENORPHINE/NALOXONE 8 MG/2 MG FILM PACKET SL SCH (21:06)
[2024-01-05] MEDS: MELATONIN 5 MG TABLETS PO SCH (21:06)
[2024-01-06] MEDS: LEVOTHYROXINE NA 25 MCG TABLET (FP) PO SCH (06:16)
[2024-01-06] MEDS: TAMSULOSIN HCL 0.4 MG CAP PO SCH (07:35)
[2024-01-06] MEDS: amLODIPine BESYLATE 10 MG TABLET (FP) PO SCH (10:12)
[2024-01-06] MEDS: PRENATAL VITAMINS W/ FOLIC ACID TABLET (FP) PO SCH (10:13)
[2024-01-06] MEDS: ESCITALOPRAM OXALATE 10 MG TABLET PO SCH (10:49)
[2024-01-06] MEDS: FLU VACCINE (FLULAVAL) PF 60 MCG/0.5 ML SYRINGE 2023-2024 IM ONE (11:02)
[2024-01-15] MEDS: TAMSULOSIN HCL 0.4 MG CAP PO SCH (10:33)
[2024-01-15] MEDS: TAMSULOSIN HCL 0.4 MG CAP PO ONE (10:57)
[2024-01-17] MEDS: hydrOXYzine PAMOATE 25 MG CAPSULE (FP) PO PRN (02:35)
[2024-01-26 06:41] VITALS: RESP 16; TEMP 98.6
[2024-01-26 09:07] VITALS: BP 125/71; PULSE 70
== END 2024-01-26 14:01 | disposition home or self-care (01) | DRG 772 ==
LOC: YASAS 12:55 → Y3W 13:00
PROVIDERS: ADMIT Allergy & Immunology; ATTEND Psychiatry & Neurology Pain Medicine
PROC: HZ42ZZZ Group Counseling for Substance Abuse Treatment, Cognitive-Behavioral (ICD-10-PCS; principal; 2024-01-05)
DX: F11.20 Opioid dependence, uncomplicated (principal); F14.20 Cocaine dependence, uncomplicated; F12.20 Cannabis dependence, uncomplicated; F17.210 Nicotine dependence, cigarettes, uncomplicated; F31.9 Bipolar disorder, unspecified; I10 Essential (primary) hypertension; E03.9 Hypothyroidism, unspecified; M17.0 Bilateral primary osteoarthritis of knee; N40.0 Benign prostatic hyperplasia without lower urinary tract symptoms; Z59.02 Unsheltered homelessness; Z88.8 Allergy status to other drugs, medicaments and biological substances
CPT/HCPCS: 36415; 86803; 87522; 90686; G0008